=== PATIENT | male | born 1950 | race Caucasian/White ===

== ENCOUNTER 2017-03-16 10:28 | Inpatient (IN) | payer MEDICARE, OTHER ==
[2017-03-16] MEDS ORDERED: ALBUTEROL SO4 2.5/IPRATROPIUM 0.5 INH SOL 3 ML VIAL.NEB. NEB ONE (10:58)
[2017-03-16] MEDS ORDERED: methylPREDNISolone NA SUCC 125 MG/2 ML VIAL ONE (10:59)
[2017-03-16] MEDS ORDERED: FOLIC ACID INJECTION - 1 MG, THIAMINE HCL 100 MG, MULTIVIT INJECTION ADULT 10 ML in SOD... IVPB ONE (11:07)
[2017-03-16] MEDS: ALBUTEROL SO4 2.5/IPRATROPIUM 0.5 INH SOL 3 ML VIAL.NEB. NEB SCH ×3 (11:15→11:45)
[2017-03-16 11:19] LABS: BASOPHIL 0.5 % (0-2.0); EOSINOPHIL 0.3 % (0-4.5); MCH 32.8 pg (25.7-33.7); MCHC 32.7 g/dl (32.0-35.9); MEAN CELL VOLUME 100.4 fl (80-96); MEAN PLT VOLUME 8.5 fl (7.5-11.1); NEUTROPHILS 77.6 % (42.8-82.8); PLATELET COUNT 310 K/MM3 (134-434); RDW 15.3 % (11.9-15.9); WHITE BLOOD COUNT 13.9 K/mm3 (4.0-10.0)
[2017-03-16] MEDS ORDERED: methylPREDNISolone NA SUCC 125 MG/2 ML VIAL IVPB ONE (11:19)
--- NOTE | 2017-03-16 11:19 | PDOC ---
History of Present Illness - General Chief Complaint: Shortness of Breath Stated Complaint: SHORTNESS OF BREATH Time Seen by Provider: 03/16/17 10:39 History Source: Patient Exam Limitations: No Limitations - History of Present Illness Initial Comments: 03/16/17 11:26 66-year-old male with history of esophageal cancer current smoker, COPD and current alcoholic presents with difficulty breathing along with dry secretions that he cannot expectorate. Patient states was seen by his PCP earlier this week and was given expectorant but has had minimal success. Patient denies fever , chills, increased cough, chest pain, or nausea. Patient states has a PEG tube which he gives himself his feeding through but drinks alcohol daily through his mouth including whiskey and beer. Patient states last drink was this morning. Timing/Duration: reports: constant (3 days) Severity: reports: moderate Possible Cause: Yes: occasional episodes Associated Symptoms: reports: cough, shortness of breath Past History - Past Medical History Allergies/Adverse Reactions: Allergies Allergy/AdvReac Type Severity Reaction Status Date / Time shellfish derived Allergy REDDNESS Verified 03/16/17 10:32 AND SWELLING Radioactive opaque dye Allergy Severe Rash Uncoded 03/16/17 10:32 Home Medications: Ambulatory Orders Acyclovir [Zovirax -] 200 mg PO BID 03/16/17 Albuterol Sulfate [Proair Respiclick] 90 mcg IH TID 03/16/17 Aspirin [ASA -] 81 mg PO DAILY 03/16/17 Clonazepam [Klonopin] 1 mg PO BID 03/16/17 Furosemide [Lasix] 40 mg PO DAILY 03/16/17 Gabapentin [Neurontin] 600 mg PO DAILY 03/16/17 Guaifenesin [Robitussin -] 5 ml PO QID PRN 03/16/17 Levetiracetam [Keppra -] 750 mg PO BID 03/16/17 Magnesium Oxide [Mag-Ox -] 400 mg PO BID 03/16/17 Mirtazapine [Remeron -] 15 mg PO DAILY 03/16/17 Oxycodone HCl [Oxycontin] 30 mg PO BID PRN 03/16/17 Pantoprazole Sodium [Protonix -] 40 mg PO DAILY 03/16/17 Potassium Chloride [K-Dur -] 10 meq PO DAILY 03/16/17 Ropinirole HCl 1 mg PO DAILY 03/16/17 Tizanidine HCl 4 mg PO BID 03/16/17 Tramadol HCl 50 mg PO DAILY 03/16/17 Venlafaxine HCl [Effexor -] 150 mg PO DAILY 03/16/17 Anemia: No Asthma: Yes Cancer: Yes (LUNG, throat) Cardiac Disorders: Yes CVA: No COPD: Yes CHF: No Dementia: No Diabetes: No GI Disorders: Yes (bleed) Disorders: No HTN: No Hypercholesterolemia: No Liver Disease: Yes Suicide Attempt (Hx): No Seizures: Yes Thyroid Disease: No - Surgical History Abdominal Surgery: Yes Appendectomy: Yes Cardiac Surgery: Yes (3 STENTS) Cholecystectomy: No Lung Surgery: Yes (LT LOWER LOBECTOMY) Neurologic Surgery: No Orthopedic Surgery: No - Immunization History Td Vaccination: Yes TDAP Vaccination: Yes Immunization Up to Date: Yes - Psycho/Social/Smoking Cessation Hx Anxiety: No Suicidal Ideation: No Smoking Status: Yes Smoking History: Current every day smoker Years of Tobacco Use: 40 Have you smoked in the past 12 months: Yes Number of Cigarettes Smoked Daily: 10 If you are a former smoker, when did you quit?: 1 month ago Cigars Per Day: 0 Information on smoking cessation initiated: No 'Breaking Loose' booklet given: 04/12/16 Hx Alcohol Use: Yes Drug/Substance Use Hx: No Substance Use Type: Alcohol Hx Substance Use Treatment: No Patient Lives Alone: No Lives with/in: spouse/SO Respiratory Specific PMHX - Complaint Specific PMHX Bronchitis: Yes Pneumonia: Yes Review of Systems - Review of Systems Able to Perform ROS?: Yes Constitutional: No: Symptoms Reported HEENTM: No: Symptoms Reported Respiratory: Yes: Cough, Shortness of Breath, Wheezing Cardiac (ROS): No: Symptoms Reported ABD/GI: No: Symptoms Reported Musculoskeletal: No: Symptoms Reported Integumentary: No: Symptoms Reported Neurological: No: Headache, Weakness *Physical Exam - Vital Signs Last Vital Signs Temp Pulse Resp BP Pulse Ox 98.3 F 118 H 18 127/70 95 03/16/17 10:29 03/16/17 10:29 03/16/17 10:29 03/16/17 10:29 03/16/17 10:29 - Physical Exam General Appearance: Yes: Mild Distress, Alcohol on Breath, Thin HEENT: positive: EOMI, SHREE, TMs Normal, Pharynx Normal (dry). negative: Pale Conjunctivae Neck: positive: Supple Respiratory/Chest: positive: Accessory Muscle Use, Labored Respiration, Rapid RR (26 on arrival), Wheezing (end inspiratory) Cardiovascular: positive: Regular Rhythm, Tachycardia. negative: Murmur Gastrointestinal/Abdominal: positive: Soft, Other (gt intact). negative: Tenderness Extremity: positive: Normal Capillary Refill. negative: Pedal Edema Integumentary: positive: Normal Color, Dry, Warm Neurologic: positive: Motor Strength 5/5. negative: Normal Mood/Affect (anxious ) ED Treatment Course - LABORATORY CBC & Chemistry Diagram: 03/16/17 11:16 03/16/17 11:16 - RADIOLOGY Radiology Studies Ordered: Category Date Time Status CHEST PA & LAT [RAD] Stat Radiology 03/16/17 11:06 Ordered Medical Decision Making - Medical Decision Making 03/16/17 11:08 Patient with long-standing history of alcoholism and smoking presents shortness of breath and nonproductive cough despite starting Robitussin. Patient on exam had mild end inspiratory wheeze to the bronchial and scattered throughout his lung nettles. Patient also with dry mucous membranes. Patient ordered for 3 DuoNeb along with Solu-Medrol, banana bag labs, EKG and chest x-ray. 03/16/17 12:38 Laboratory Tests 03/16/17 11:16 WBC 13.9 H D Hgb 11.8 D Hct 36.2 Plt Count 310 Neutrophils % 77.6 Monocytes % 12.6 H D Chest x-ray shows some hyperinflation with no signs of infiltrate or failure. We 'll discuss case with patient's private care physician Dr. He for admission due to patient's poor diet, continual on-call abuse and abnormal labs. 03/16/17 12:39 Laboratory Tests 03/16/17 11:16 Sodium 134 L Potassium 4.5 Chloride 83 L D Anion Gap 11 BUN 32 H D Creatinine 1.6 H D Creat Clearance w eGFR 43.33 Random Glucose 66 L D Calcium 10.1 D Magnesium 3.0 H D Total Bilirubin 0.4 D AST 28 D ALT 15 D Alkaline Phosphatase 145 H Creatine Kinase 373 H Creatine Kinase Index 1.2 CK-MB (CK-2) 4.604 H Troponin I < 0.02 Currently receiving banana bag. Will perform a BGM secondary to glucose of 66.Patient currently satting at 95% on room air with mild accessory muscle usage patient currently receiving saline nebulizer. 03/16/17 13:15 Selected Entries 03/16/17 11:56 Pulse Rate [ 96 H Apical] Blood Pressure 150/73 [Left Arm] O2 Sat by Pulse 95 Oximetry (%) Patient still complaining he is uncomfortable and appears very restless. Patient maybe withdrawing from alcohol. Patient be ordered for 1 mg of Ativan along with an alcohol level. Dr. He here and states admitted to [facility] inpatient *DC/Admit/Observation/Transfer Diagnosis at time of Disposition: Alcohol dependence with uncomplicated withdrawal, COPD (chronic obstructive pulmonary disease), Laryngeal cancer Dyspnea Qualifiers: Dyspnea type: shortness of breath Qualified Code(s): R06.02 - Shortness of breath - Discharge Dispostion Admit: Yes
[2017-03-16 11:46] LABS: ANION GAP 11 (8-16); BILIRUBIN,TOTAL 0.4 mg/dL (0.2-1.0); CALCIUM 10.1 mg/dL (8.5-10.1); CO2 40 mmol/L (21-32); CREATININE 1.6 mg/dL (0.7-1.3); GLUCOSE,RANDOM 66 mg/dL (74-106); SGOT/AST 28 U/L (15-37); SGPT/ALT 15 U/L (12-78)
[2017-03-16 11:48] LABS: ALK PHOS 145 U/L (45-117); CPK 373 IU/L (39-308); TROPONIN I < 0.02 ng/ml (0.00-0.05)
[2017-03-16] MEDS ORDERED: SODIUM CHLORIDE FOR INHALATION 3 ML VIAL.NEB IH ONE (12:00)
[2017-03-16] MEDS ORDERED: LORazepam 2 MG/ML SDV VIAL ONE (13:02)
[2017-03-16] MEDS ORDERED: levETIRAcetam 500 MG TABLET (FP) PO ONE ×2 (13:39→13:44)
[2017-03-16] MEDS ORDERED: oxyCODONE HCL 5 MG TABLET PO PRN (15:15)
--- NOTE | 2017-03-16 15:32 | HP ---
Admitting History and Physical - Primary Care Physician PCP: Katiana He - Admission Chief Complaint: not feeling well History of Present Illness: 66-year-old male with history of throat cancer -- s/p recent RT--current smoker , COPD, lung ca-- s/p lobectomy , chronic pain issues , seizure disorder and current alcoholic presents with difficulty breathing along with dry secretions that he cannot expectorate. Patient states was seen by his oncologist earlier this week and was given expectorant but has had minimal success. Patient denies fever, chills, increased cough, chest pain, or nausea. Patient states has a PEG tube which he gives himself his feeding through but drinks alcohol daily through his mouth including whiskey and beer. Patient states last drink was this morning. pt found in copd exac/ alcohol withdrawal pt given fluids/ steroids/ nebulizer treatment in er. pt seen by me in er. well known to me discussed with er physician. Also discussed with who at bedside non compliant pt. History Source: Family Member, Medical Record Limitations to Obtaining History: Clinical Condition - Past Medical History [employer]NA[employer]ING: Yes: Seizure (alcohol induced) Cardiovascular: Yes: CAD, Other (STENTING) Pulmonary: Yes: Cancer (lung Ca), COPD Gastrointestinal: Yes: GERD, Other (Duodenal ulcers- cauterized july 2014) Psych: Yes: Addictions, Anxiety Musculoskeletal: Yes: Chronic low back pain - Past Surgical History Past Surgical History: Yes: Thoracotomy - Smoking History Smoking history: Current every day smoker Have you smoked in the past 12 months: Yes Aproximately how many cigarettes per day: 10 If you are a former smoker, when did you quit?: 1 month ago - Alcohol/Substance Use Hx Alcohol Use: Yes Number of Drinks Daily: 8 History of Substance Use: reports: None. denies: Prescription - Social History ADL: Family Assistance History of Recent Travel: No Home Medications - Allergies Allergies/Adverse Reactions: Allergies Allergy/AdvReac Type Severity Reaction Status Date / Time shellfish derived Allergy REDDNESS Verified 03/16/17 10:32 AND SWELLING Radioactive opaque dye Allergy Severe Rash Uncoded 03/16/17 10:32 - Home Medications Home Medications: Ambulatory Orders Acyclovir [Zovirax -] 200 mg PO BID 03/16/17 Albuterol Sulfate [Proair Respiclick] 90 mcg IH TID 03/16/17 Aspirin [ASA -] 81 mg PO DAILY 03/16/17 Clindamycin [Cleocin -] 300 mg PO DAILY 03/16/17 Clonazepam [Klonopin] 1 mg PO BID 03/16/17 Furosemide [Lasix] 40 mg PO DAILY 03/16/17 Gabapentin [Neurontin] 300 mg PO TID 03/16/17 Guaifenesin [Robitussin -] 5 ml PO QID 03/16/17 Levetiracetam [Keppra -] 750 mg PO BID 03/16/17 Magnesium Oxide [Mag-Ox -] 400 mg PO DAILY 03/16/17 Mirtazapine [Remeron -] 15 mg PO DAILY 03/16/17 Oxycodone HCl [Oxycontin] 30 mg PO BID 03/16/17 Pantoprazole Sodium [Protonix -] 40 mg PO DAILY 03/16/17 Potassium Chloride [K-Dur -] 10 meq PO DAILY 03/16/17 Ranitidine [Zantac -] 150 mg PO DAILY 03/16/17 Ropinirole HCl 1 mg PO DAILY 03/16/17 Tizanidine HCl 4 mg PO BID 03/16/17 Tramadol HCl 50 mg PO DAILY 03/16/17 Family Disease History - Family Disease History Family Disease History: Diabetes: Grandparent, [place]: Father, Other: Mother ( alcoholism) Review of Systems - Review of Systems Constitutional: reports: Loss of Appetite, Weakness Eyes: reports: No Symptoms HENT: reports: Throat Pain Neck: reports: No Symptoms Cardiovascular: reports: No Symptoms Respiratory: reports: SOB Gastrointestinal: reports: No Symptoms Neurological: reports: Weakness Psychiatric: reports: Anxiety Physical Examination Vital Signs: Vital Signs Temperature 98.8 F 03/16/17 14:20 Pulse Rate 102 H 03/16/17 14:20 Respiratory Rate 20 03/16/17 14:20 Blood Pressure 158/89 03/16/17 14:20 O2 Sat by Pulse Oximetry (%) 96 03/16/17 14:20 Constitutional: Yes: Anxious, Moderate Distress Eyes: Yes: Conjunctiva Clear Neck: Yes: Supple Cardiovascular: Yes: Regular Rate and Rhythm Respiratory: Yes: Diminished, Poor Air Entry, Rhonchi, Other (s/p g tube) Gastrointestinal: Yes: Soft Edema: No Neurological: Yes: Other (drowsy but arousable) Imaging - Results Chest X-ray: Report Reviewed Problem List - Problems (1) Alcohol dependence with uncomplicated withdrawal Code(s): F10.230 - ALCOHOL DEPENDENCE WITH WITHDRAWAL, UNCOMPLICATED (2) Dyspnea Code(s): R06.00 - DYSPNEA, UNSPECIFIED Qualifiers: Dyspnea type: shortness of breath Qualified Code(s): R06.02 - Shortness of breath; R06.00 - Dyspnea, unspecified; R06.01 - Orthopnea (3) Lung cancer Code(s): C34.90 - MALIGNANT NEOPLASM OF UNSP PART OF UNSP BRONCHUS OR LUNG (4) Restless leg Code(s): G25.81 - RESTLESS LEGS SYNDROME (5) Seizure Code(s): R56.9 - UNSPECIFIED CONVULSIONS (6) COPD with exacerbation Code(s): J44.1 - CHRONIC OBSTRUCTIVE PULMONARY DISEASE W (ACUTE) EXACERBATION (7) History of throat cancer Code(s): Z85.819 - PRSNL HX OF MALIG NEOPLM OF UNSP SITE LIP,ORAL CAV,& PHARYNX Assessment/Plan Overall condition poor due to multiple comorbities. non compliance . steroids nebulizer treatment detox with librium protocol banana bag. f/u lytes discussed with . time spend 40 min in examining/documenting and coordating care.
[2017-03-16 16:09] VITALS: BMI 16.9
[2017-03-16] MEDS ORDERED: PT OWN MED DRAWER 7, Y5N ONE (17:29)
[2017-03-16] MEDS: chlordiazePOXIDE HCL 25 MG CAPSULE PO SCH ×2 (17:35→23:12)
[2017-03-16] MEDS: D5-1/2NS+20 MEQ KCL - 1,000 ML IV SCH (18:35)
[2017-03-16] MEDS: ALBUTEROL SO4 0.083% IH SOL 2.5 MG/3 ML VIAL.NEB. NEB PRN (20:08)
[2017-03-16] MEDS: methylPREDNISolone NA SUCC 40 MG/1 ML VIAL IVPB SCH (23:09)
[2017-03-16] MEDS: GABAPENTIN 300 MG CAPSULE (FP) PO SCH (23:10)
[2017-03-16] MEDS: ACYCLOVIR 200 MG CAPSULE PO SCH (23:10)
[2017-03-16] MEDS: HEPARIN NA (PORCINE) 5,000 UNITS/ML 1ML VIAL SQ SCH (23:10)
[2017-03-16] MEDS: levETIRAcetam 250 MG TABLET (FP) PO SCH (23:10)
[2017-03-16] MEDS: oxyCODONE HCL 10 MG SUSTAINED ACTING TABLET PO SCH (23:13)
[2017-03-16] MEDS: clonazePAM 0.5 MG TABLET PO SCH (23:14)
[2017-03-16] MEDS: PATIENT'S OWN MEDICATION (NON-FORMULARY) (Tizanidine Hcl [Tizanidine Hcl] 4 MG) PO PRN (23:18)
[2017-03-17] MEDS: methylPREDNISolone NA SUCC 40 MG/1 ML VIAL IVPB SCH ×4 (02:01→21:00)
[2017-03-17] MEDS: D5-1/2NS+20 MEQ KCL - 1,000 ML IV SCH ×2 (04:00→22:19)
[2017-03-17] MEDS: GABAPENTIN 300 MG CAPSULE (FP) PO SCH ×3 (06:17→22:19)
[2017-03-17] MEDS: chlordiazePOXIDE HCL 25 MG CAPSULE PO SCH ×4 (06:17→22:18)
[2017-03-17] MEDS ORDERED: FOLIC ACID INJECTION - 1 MG, THIAMINE HCL 100 MG, MULTIVIT INJECTION ADULT 10 ML in SOD... IVPB SCH (08:00)
[2017-03-17 08:35] LABS: BASOPHIL 0.1 % (0-2.0); MCH 32.8 pg (25.7-33.7); MCHC 32.2 g/dl (32.0-35.9); MEAN CELL VOLUME 101.7 fl (80-96); MEAN PLT VOLUME 8.4 fl (7.5-11.1); NEUTROPHILS 93.6 % (42.8-82.8); PLATELET COUNT 256 K/MM3 (134-434); RDW 15.7 % (11.9-15.9); WHITE BLOOD COUNT 11.7 K/mm3 (4.0-10.0)
[2017-03-17 08:51] LABS: INR 1.02 (0.82-1.09); PROTHROMBIN TIME (PATIENT) 11.2 SEC (9.98-11.88)
[2017-03-17 09:08] LABS: ANION GAP 9 (8-16); CALCIUM 9.4 mg/dL (8.5-10.1); CO2 33 mmol/L (21-32); GLUCOSE,RANDOM 129 mg/dL (74-106); MAGNESIUM 2.4 mg/dL (1.8-2.4)
[2017-03-17 09:11] LABS: ALK PHOS 118 U/L (45-117); BILIRUBIN,TOTAL 0.4 mg/dL (0.2-1.0); SGOT/AST 23 U/L (15-37); SGPT/ALT 14 U/L (12-78); TOT PROT 6.4 g/dl (6.4-8.2)
[2017-03-17] MEDS ORDERED: CLINDAMYCIN HCL 150 MG CAPSULE (FP) PO SCH (10:00)
[2017-03-17] MEDS ORDERED: PT OWN MED DRAWER 7, Y5N ONE ×2 (10:15→22:10)
[2017-03-17] MEDS: PANTOPRAZOLE 40 MG TABLET (FP) PO SCH (10:23)
[2017-03-17] MEDS: clonazePAM 0.5 MG TABLET PO SCH ×2 (10:23→22:19)
[2017-03-17] MEDS: oxyCODONE HCL 10 MG SUSTAINED ACTING TABLET PO SCH ×2 (10:24→22:17)
[2017-03-17] MEDS: MAGNESIUM OXIDE 400 MG TABLET (FP) PO SCH (10:24)
[2017-03-17] MEDS: HEPARIN NA (PORCINE) 5,000 UNITS/ML 1ML VIAL SQ SCH ×2 (10:24→22:18)
[2017-03-17] MEDS: ASPIRIN 81 MG CHEWABLE TABLETS PO SCH (10:24)
[2017-03-17] MEDS: levETIRAcetam 250 MG TABLET (FP) PO SCH ×2 (10:24→22:18)
[2017-03-17] MEDS: ACYCLOVIR 200 MG CAPSULE PO SCH ×2 (10:25→22:18)
[2017-03-17] MEDS: rOPINIRole HCL 1 MG TABLET (FP) PO SCH (10:25)
--- NOTE | 2017-03-17 11:29 | PN ---
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 (short form) - Note 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: Pt looks much better wants to eat- reports takes puree diet at home without difficulty Vital Signs Temp 98.2 F 03/17/17 09:57 Pulse 90 03/17/17 09:57 Resp 18 03/17/17 09:57 BP 120/64 03/17/17 09:57 Pulse Ox 100 03/16/17 21:00 Intake & Output 03/16/17 03/16/17 03/17/17 11:59 23:59 11:59 Intake Total 500 1600 Output Total 500 500 Balance 0 1100 Weight 100 lb 115 lb 1.6 oz Intake: IV 500 1500 D5-1/2Ns+20 Meq KCl - 1, 500 1500 000 ml @ 125 mls/hr IV ASDIR JOE Rx#:[id number] IVPB 100 Output: Urine 500 500 Void 500 500 Other: Voiding Method Urinal Urinal Bowel Movement No Height 5 ft 9 in 5 ft 9 in Body Mass Index (BMI) 14.8 16.9 Weight Measurement Method Built in [facility] Active Medications Acyclovir (Zovirax -) 200 mg PO BID [facility] Last Admin: 03/17/17 10:25 Dose: 200 mg Albuterol Sulfate (Ventolin 0.083% Nebulizer Soln -) 1 amp NEB Q4H PRN PRN Reason: SHORT OF BREATH/WHEEZING Last Admin: 03/16/17 20:08 Dose: 1 amp Aspirin (Asa -) 81 mg PO DAILY [facility] Last Admin: 03/17/17 10:24 Dose: 81 mg Chlordiazepoxide HCl (Librium -) 50 mg PO [id number] [facility] Last Admin: 03/17/17 10:24 Dose: 50 mg Clonazepam (Klonopin -) 1 mg PO BID [facility] Last Admin: 03/17/17 10:23 Dose: 1 mg Gabapentin (Neurontin -) 300 mg PO TID [facility] Last Admin: 03/17/17 06:17 Dose: 300 mg Heparin Sodium (Porcine) (Heparin -) 5,000 unit SQ BID [facility] Last Admin: 03/17/17 10:24 Dose: 5,000 unit Folic Acid 1 mg/ Thiamine HCl 100 mg/ Multivitamins/Minerals 10 ml/ Sodium Chloride 1,000 mls @ 125 mls/hr IVPB DAILY@0800 [facility] Last Admin: 03/17/17 10:23 Dose: 125 mls/hr Potassium Chloride/Dextrose/Sod Cl (D5-1/2ns+20 Meq Kcl -) 1,000 mls @ 125 mls/ hr IV ASDIR [facility] Last Admin: 03/17/17 04:00 Dose: 125 mls/hr Levetiracetam (Keppra -) 750 mg PO BID [facility] Last Admin: 03/17/17 10:24 Dose: 750 mg Magnesium Oxide (Mag-Ox -) 400 mg PO DAILY [facility] Last Admin: 03/17/17 10:24 Dose: 400 mg Methylprednisolone Sodium Succinate (Solu-Medrol -) 60 mg IVPB Q6H-IV [facility] Last Admin: 03/17/17 10:23 Dose: 60 mg Non-Formulary Medication (Tizanidine Hcl [Tizanidine Hcl]) 4 mg PO Q8H PRN PRN Reason: MUSCLE SPASMS/PAIN Last Admin: 03/16/17 23:18 Dose: 4 mg Oxycodone HCl (Oxycontin -) 30 mg PO BID [facility] Last Admin: 03/17/17 10:24 Dose: 30 mg Oxycodone HCl (Roxicodone -) 5 mg PO Q6H PRN PRN Reason: PAIN Pantoprazole Sodium (Protonix -) 40 mg PO DAILY [facility] Last Admin: 03/17/17 10:23 Dose: 40 mg Ropinirole HCl (Requip -) 1 mg PO DAILY [facility] Last Admin: 03/17/17 10:25 Dose: 1 mg CBC, BMP 03/17/17 07:30 03/17/17 07:30 Physical Examination Constitutional: Yes: Awake/ better. Eyes: Yes: Conjunctiva Clear Neck: Yes: Supple Cardiovascular: Yes: Regular Rate and Rhythm Respiratory: Yes: Diminished, Bilateral rhonchi Gastrointestinal: Yes: Soft Edema: No Neurological: Yes: Other (awake/) Imaging - Results Chest X-ray: Report Reviewed Assessment/Plan better continue present care puree diet discussed with pt/ will follow Problem List - Problems (1) Alcohol dependence with uncomplicated withdrawal Code(s): F10.230 - ALCOHOL DEPENDENCE WITH WITHDRAWAL, UNCOMPLICATED (2) Dyspnea Code(s): R06.00 - DYSPNEA, UNSPECIFIED Qualifiers: Dyspnea type: shortness of breath Qualified Code(s): R06.02 - Shortness of breath; R06.00 - Dyspnea, unspecified; R06.01 - Orthopnea (3) Lung cancer Code(s): C34.90 - MALIGNANT NEOPLASM OF UNSP PART OF UNSP BRONCHUS OR LUNG (4) Restless leg Code(s): G25.81 - RESTLESS LEGS SYNDROME (5) Seizure Code(s): R56.9 - UNSPECIFIED CONVULSIONS (6) COPD with exacerbation Code(s): J44.1 - CHRONIC OBSTRUCTIVE PULMONARY DISEASE W (ACUTE) EXACERBATION (7) History of throat cancer Code(s): Z85.819 - PRSNL HX OF MALIG NEOPLM OF UNSP SITE LIP,ORAL CAV,& PHARYNX
[2017-03-18] MEDS: methylPREDNISolone NA SUCC 40 MG/1 ML VIAL IVPB SCH ×4 (02:12→22:09)
[2017-03-18] MEDS: chlordiazePOXIDE HCL 25 MG CAPSULE PO SCH ×4 (05:11→22:10)
[2017-03-18] MEDS: GABAPENTIN 300 MG CAPSULE (FP) PO SCH ×3 (06:12→22:08)
[2017-03-18] MEDS: D5-1/2NS+20 MEQ KCL - 1,000 ML IV SCH (06:14)
--- NOTE | 2017-03-18 08:29 | PN ---
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 (short form) - Note 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: pt seen/examined. comfortably sleeping. afebrile Vital Signs Temp 97.8 F 03/18/17 06:00 Pulse 67 03/18/17 06:00 Resp 20 03/18/17 06:00 BP 119/64 03/18/17 06:00 Pulse Ox 97 03/17/17 21:00 Intake & Output 03/17/17 03/17/17 03/18/17 11:59 23:59 11:59 Intake Total 1600 2830 2790 Output Total 500 500 900 Balance 1100 2330 1890 Intake: IV 1500 1250 1150 D5-1/2Ns+20 Meq KCl - 1, 2975 260 8455 000 ml @ 125 mls/hr IV ASDIR [facility] Rx#:[id number] banana bag 875 IVPB 100 100 100 Oral 500 550 Tube Feeding 500 440 Tube Irrigant 480 550 Output: Urine 500 500 900 Void 500 500 900 Other: Voiding Method Urinal Urinal # Unmeasured Voids Void 2 2 Bowel Movement No No Active Medications Acyclovir (Zovirax -) 200 mg PO BID [facility] Last Admin: 03/17/17 22:18 Dose: 200 mg Albuterol Sulfate (Ventolin 0.083% Nebulizer Soln -) 1 amp NEB Q4H PRN PRN Reason: SHORT OF BREATH/WHEEZING Last Admin: 03/16/17 20:08 Dose: 1 amp Aspirin (Asa -) 81 mg PO DAILY [facility] Last Admin: 03/17/17 10:24 Dose: 81 mg Chlordiazepoxide HCl (Librium -) 50 mg PO [id number] [facility] Last Admin: 03/18/17 05:11 Dose: 50 mg Clonazepam (Klonopin -) 1 mg PO BID [facility] Last Admin: 03/17/17 22:19 Dose: 1 mg Folic Acid (Folic Acid -) 1 mg PO DAILY [facility] Gabapentin (Neurontin -) 300 mg PO TID [facility] Last Admin: 03/18/17 06:12 Dose: 300 mg Heparin Sodium (Porcine) (Heparin -) 5,000 unit SQ BID [facility] Last Admin: 03/17/17 22:18 Dose: 5,000 unit Levetiracetam (Keppra -) 750 mg PO BID [facility] Last Admin: 03/17/17 22:18 Dose: 750 mg Magnesium Oxide (Mag-Ox -) 400 mg PO DAILY [facility] Last Admin: 03/17/17 10:24 Dose: 400 mg Methylprednisolone Sodium Succinate (Solu-Medrol -) 60 mg IVPB Q6H-IV [facility] Last Admin: 03/18/17 02:12 Dose: 60 mg Non-Formulary Medication (Tizanidine Hcl [Tizanidine Hcl]) 4 mg PO Q8H PRN PRN Reason: MUSCLE SPASMS/PAIN Last Admin: 03/16/17 23:18 Dose: 4 mg Oxycodone HCl (Oxycontin -) 30 mg PO BID [facility] Last Admin: 03/17/17 22:17 Dose: 30 mg Oxycodone HCl (Roxicodone -) 5 mg PO Q6H PRN PRN Reason: PAIN Last Admin: 03/17/17 15:34 Dose: 5 mg Pantoprazole Sodium (Protonix -) 40 mg PO DAILY [facility] Last Admin: 03/17/17 10:23 Dose: 40 mg Ropinirole HCl (Requip -) 1 mg PO DAILY [facility] Last Admin: 03/17/17 10:25 Dose: 1 mg Thiamine HCl (Vitamin B1 Injection -) 200 mg IM DAILY [facility] CBC, BMP 03/17/17 07:30 03/17/17 07:30 Physical Examination Constitutional: Yes:comfortable. Eyes: Yes: Conjunctiva Clear. Neck: Yes: Supple. Cardiovascular: Yes: Regular Rate and Rhythm Respiratory: Yes: Diminished, Bilateral rhonchi Gastrointestinal: Yes: Soft Edema: No Neurological: Yes: Other (awake) Imaging - Results Chest X-ray: Report Reviewed Assessment/Plan getting better tolerating feeding taking orally Taper steroids. d/c fluids got banana bag x2 add thiamine daily oob- chair will follow Problem List - Problems (1) Alcohol dependence with uncomplicated withdrawal Code(s): F10.230 - ALCOHOL DEPENDENCE WITH WITHDRAWAL, UNCOMPLICATED (2) Dyspnea Code(s): R06.00 - DYSPNEA, UNSPECIFIED Qualifiers: Dyspnea type: shortness of breath Qualified Code(s): R06.02 - Shortness of breath; R06.00 - Dyspnea, unspecified; R06.01 - Orthopnea (3) Lung cancer Code(s): C34.90 - MALIGNANT NEOPLASM OF UNSP PART OF UNSP BRONCHUS OR LUNG (4) Restless leg Code(s): G25.81 - RESTLESS LEGS SYNDROME (5) Seizure Code(s): R56.9 - UNSPECIFIED CONVULSIONS (6) COPD with exacerbation Code(s): J44.1 - CHRONIC OBSTRUCTIVE PULMONARY DISEASE W (ACUTE) EXACERBATION (7) History of throat cancer Code(s): Z85.819 - PRSNL HX OF MALIG NEOPLM OF UNSP SITE LIP,ORAL CAV,& PHARYNX
[2017-03-18] MEDS: PANTOPRAZOLE 40 MG TABLET (FP) PO SCH (11:24)
[2017-03-18] MEDS: FOLIC ACID 1 MG TABLET (FP) PO SCH (11:24)
[2017-03-18] MEDS: oxyCODONE HCL 10 MG SUSTAINED ACTING TABLET PO SCH ×2 (11:25→22:08)
[2017-03-18] MEDS: ASPIRIN 81 MG CHEWABLE TABLETS PO SCH (11:25)
[2017-03-18] MEDS: MAGNESIUM OXIDE 400 MG TABLET (FP) PO SCH (11:25)
[2017-03-18] MEDS: clonazePAM 0.5 MG TABLET PO SCH ×2 (11:27→22:08)
[2017-03-18] MEDS: THIAMINE HCL 200 MG/2 ML VIAL IM SCH (11:28)
[2017-03-18] MEDS: HEPARIN NA (PORCINE) 5,000 UNITS/ML 1ML VIAL SQ SCH ×2 (11:28→22:08)
[2017-03-18] MEDS ORDERED: PT OWN MED DRAWER 7, Y5N ONE ×2 (11:30→21:01)
[2017-03-18] MEDS: rOPINIRole HCL 1 MG TABLET (FP) PO SCH (11:31)
[2017-03-18] MEDS: ACYCLOVIR 200 MG CAPSULE PO SCH ×2 (11:32→22:08)
[2017-03-18] MEDS: levETIRAcetam 250 MG TABLET (FP) PO SCH ×2 (12:30→22:07)
--- NOTE | 2017-03-18 16:42 | EKG ---
Test Reason : Blood Pressure : / mmHG Vent. Rate : 093 BPM Atrial Rate : 093 BPM P-R Int : 134 ms QRS Dur : 074 ms QT Int : 370 ms P-R-T Axes : 079 029 064 degrees QTc Int : 460 ms NORMAL SINUS RHYTHM BASELINE ARTIFACT ABNORMAL ECG WHEN COMPARED WITH ECG OF 13-APR-2016 10:16, LIKELY NO SIGNIFICANT CHANGES Confirmed by JADA SPARKS MD ([id number]) on 03/18/2017 4:41:50 PM Referred By: Confirmed By:JADA SPARKS MD
[2017-03-18] MEDS: AZITHROMYCIN IVPB 500 MG/250 ML D5W PRE-DOCKED IVPB SCH (17:19)
[2017-03-19] MEDS: methylPREDNISolone NA SUCC 40 MG/1 ML VIAL IVPB SCH ×3 (03:00→17:29)
[2017-03-19] MEDS: chlordiazePOXIDE HCL 25 MG CAPSULE PO SCH ×6 (05:58→22:23)
[2017-03-19] MEDS: GABAPENTIN 300 MG CAPSULE (FP) PO SCH ×3 (05:58→22:24)
[2017-03-19] MEDS: ALBUTEROL SO4 0.083% IH SOL 2.5 MG/3 ML VIAL.NEB. NEB PRN ×3 (06:35→22:05)
--- NOTE | 2017-03-19 08:29 | PN ---
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 (short form) - Note 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: pt comfortable started on zithromax for moist cough yesterday. afebrile no new issues. overall better chronic ill appearance Vital Signs Temp 97.8 F 03/19/17 06:37 Pulse 73 03/19/17 06:37 Resp 20 03/19/17 06:37 BP 106/62 03/19/17 06:37 Pulse Ox 97 03/17/17 21:00 Intake & Output 03/18/17 03/18/17 03/19/17 11:59 23:59 11:59 Intake Total 2940 1698 1290 Output Total 1300 750 Balance 9429 356 1963 Weight 129 lb 1 oz Intake: IV 1150 678 D5-1/2Ns+20 Meq KCl - 1, 1150 678 000 ml @ 125 mls/hr IV ASDIR [facility] Rx#:[id number] IVPB 100 100 Oral 700 390 300 Tube Feeding 440 280 440 Tube Irrigant 550 250 550 Output: Urine 1300 750 Void 1300 750 Other: Voiding Method Urinal Urinal # Unmeasured Voids Void 2 1 Bowel Movement No Yes: small No # Bowel Movements 1 Weight [facility] Active Medications Acyclovir (Zovirax -) 200 mg PO BID [facility] Last Admin: 03/18/17 22:08 Dose: 200 mg Albuterol Sulfate (Ventolin 0.083% Nebulizer Soln -) 1 amp NEB Q4H PRN PRN Reason: SHORT OF BREATH/WHEEZING Last Admin: 03/19/17 06:35 Dose: 1 amp Aspirin (Asa -) 81 mg PO DAILY [facility] Last Admin: 03/18/17 11:25 Dose: 81 mg Azithromycin (Zithromax 500mg Ivpb (Pre-Docked)) 500 mg IVPB DAILY [facility] Last Admin: 03/18/17 17:19 Dose: 500 mg Chlordiazepoxide HCl (Librium -) 50 mg PO [id number] [facility] Last Admin: 03/19/17 05:58 Dose: 50 mg Clonazepam (Klonopin -) 1 mg PO BID [facility] Last Admin: 03/18/17 22:08 Dose: 1 mg Folic Acid (Folic Acid -) 1 mg PO DAILY [facility] Last Admin: 03/18/17 11:24 Dose: 1 mg Gabapentin (Neurontin -) 300 mg PO TID [facility] Last Admin: 03/19/17 05:58 Dose: 300 mg Heparin Sodium (Porcine) (Heparin -) 5,000 unit SQ BID [facility] Last Admin: 03/18/17 22:08 Dose: 5,000 unit Levetiracetam (Keppra -) 750 mg PO BID [facility] Last Admin: 03/18/17 22:07 Dose: 750 mg Magnesium Oxide (Mag-Ox -) 400 mg PO DAILY [facility] Last Admin: 03/18/17 11:25 Dose: 400 mg Methylprednisolone Sodium Succinate (Solu-Medrol -) 40 mg IVPB Q6H-IV [facility] Last Admin: 03/19/17 03:00 Dose: 40 mg Non-Formulary Medication (Tizanidine Hcl [Tizanidine Hcl]) 4 mg PO Q8H PRN PRN Reason: MUSCLE SPASMS/PAIN Last Admin: 03/16/17 23:18 Dose: 4 mg Oxycodone HCl (Oxycontin -) 30 mg PO BID [facility] Last Admin: 03/18/17 22:08 Dose: 30 mg Oxycodone HCl (Roxicodone -) 5 mg PO Q6H PRN PRN Reason: PAIN Last Admin: 03/17/17 15:34 Dose: 5 mg Pantoprazole Sodium (Protonix -) 40 mg PO DAILY [facility] Last Admin: 03/18/17 11:24 Dose: 40 mg Ropinirole HCl (Requip -) 1 mg PO DAILY [facility] Last Admin: 03/18/17 11:31 Dose: 1 mg Thiamine HCl (Vitamin B1 Injection -) 200 mg IM DAILY [facility] Last Admin: 03/18/17 11:28 Dose: 200 mg CBC, BMP 03/17/17 07:30 03/17/17 07:30 Physical Examination Constitutional: Yes:comfortable. Eyes: Yes: Conjunctiva Clear. Neck: Yes: Supple. Cardiovascular: Yes: Regular Rate and Rhythm Respiratory: Yes: Diminished, Bilateral rhonchi--scattered Gastrointestinal: Yes: Soft Edema: No Neurological: Yes: Other (awake) Imaging - Results Chest X-ray: Report Reviewed Assessment/Plan stable problems as listed taper steroids slowly abx daily oob - chair will follow Problem List - Problems (1) Alcohol dependence with uncomplicated withdrawal Code(s): F10.230 - ALCOHOL DEPENDENCE WITH WITHDRAWAL, UNCOMPLICATED (2) Dyspnea Code(s): R06.00 - DYSPNEA, UNSPECIFIED Qualifiers: Dyspnea type: shortness of breath Qualified Code(s): R06.02 - Shortness of breath; R06.00 - Dyspnea, unspecified; R06.01 - Orthopnea (3) Lung cancer Code(s): C34.90 - MALIGNANT NEOPLASM OF UNSP PART OF UNSP BRONCHUS OR LUNG (4) Restless leg Code(s): G25.81 - RESTLESS LEGS SYNDROME (5) Seizure Code(s): R56.9 - UNSPECIFIED CONVULSIONS (6) COPD with exacerbation Code(s): J44.1 - CHRONIC OBSTRUCTIVE PULMONARY DISEASE W (ACUTE) EXACERBATION (7) History of throat cancer Code(s): Z85.819 - PRSNL HX OF MALIG NEOPLM OF UNSP SITE LIP,ORAL CAV,& PHARYNX
[2017-03-19] MEDS ORDERED: PT OWN MED DRAWER 7, Y5N ONE ×2 (09:17→22:41)
[2017-03-19] MEDS: AZITHROMYCIN IVPB 500 MG/250 ML D5W PRE-DOCKED IVPB SCH (09:21)
[2017-03-19] MEDS: levETIRAcetam 250 MG TABLET (FP) PO SCH ×2 (09:21→22:23)
[2017-03-19] MEDS: PANTOPRAZOLE 40 MG TABLET (FP) PO SCH (09:22)
[2017-03-19] MEDS: oxyCODONE HCL 10 MG SUSTAINED ACTING TABLET PO SCH ×2 (09:23→22:24)
[2017-03-19] MEDS: MAGNESIUM OXIDE 400 MG TABLET (FP) PO SCH (09:25)
[2017-03-19] MEDS: FOLIC ACID 1 MG TABLET (FP) PO SCH (09:26)
[2017-03-19] MEDS: ASPIRIN 81 MG CHEWABLE TABLETS PO SCH (09:26)
[2017-03-19] MEDS: clonazePAM 0.5 MG TABLET PO SCH ×2 (09:26→22:23)
[2017-03-19] MEDS: HEPARIN NA (PORCINE) 5,000 UNITS/ML 1ML VIAL SQ SCH ×2 (09:28→22:23)
[2017-03-19] MEDS: THIAMINE HCL 200 MG/2 ML VIAL IM SCH (09:28)
[2017-03-19] MEDS: rOPINIRole HCL 1 MG TABLET (FP) PO SCH (09:30)
[2017-03-19] MEDS: ACYCLOVIR 200 MG CAPSULE PO SCH ×2 (09:31→23:55)
[2017-03-19] MEDS: PATIENT'S OWN MEDICATION (NON-FORMULARY) (Tizanidine Hcl [Tizanidine Hcl] 4 MG) PO PRN (22:43)
[2017-03-20] MEDS: methylPREDNISolone NA SUCC 40 MG/1 ML VIAL IVPB SCH ×4 (02:49→22:06)
[2017-03-20] MEDS: GABAPENTIN 300 MG CAPSULE (FP) PO SCH ×3 (05:51→22:47)
[2017-03-20] MEDS: chlordiazePOXIDE HCL 25 MG CAPSULE PO SCH ×2 (05:51→22:47)
[2017-03-20] MEDS: oxyCODONE HCL 10 MG SUSTAINED ACTING TABLET PO SCH ×2 (10:04→22:46)
[2017-03-20] MEDS: levETIRAcetam 250 MG TABLET (FP) PO SCH ×2 (10:04→22:47)
[2017-03-20] MEDS: FOLIC ACID 1 MG TABLET (FP) PO SCH (10:04)
[2017-03-20] MEDS: PANTOPRAZOLE 40 MG TABLET (FP) PO SCH (10:04)
[2017-03-20] MEDS: clonazePAM 0.5 MG TABLET PO SCH (10:07)
[2017-03-20] MEDS: ASPIRIN 81 MG CHEWABLE TABLETS PO SCH (10:07)
[2017-03-20] MEDS: HEPARIN NA (PORCINE) 5,000 UNITS/ML 1ML VIAL SQ SCH ×2 (10:07→21:59)
[2017-03-20] MEDS: MAGNESIUM OXIDE 400 MG TABLET (FP) PO SCH (10:07)
[2017-03-20] MEDS: THIAMINE HCL 200 MG/2 ML VIAL IM SCH (10:08)
[2017-03-20] MEDS: rOPINIRole HCL 1 MG TABLET (FP) PO SCH (10:31)
[2017-03-20] MEDS: ACYCLOVIR 200 MG CAPSULE PO SCH ×2 (10:34→22:45)
[2017-03-20] MEDS ORDERED: PT OWN MED DRAWER 7, Y5N ONE (10:34)
--- NOTE | 2017-03-20 10:46 | PN ---
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, Physician Chief Complaint: at bedside events noted pt pulled out his iv line and GT sleepy confused not making sense - Current Medication List Current Medications: Active Medications Acetaminophen (Tylenol -) 650 mg PO Q6H PRN PRN Reason: FEVER OR PAIN Acyclovir (Zovirax -) 200 mg PO BID [facility] Last Admin: 03/20/17 10:34 Dose: 200 mg Albuterol Sulfate (Ventolin 0.083% Nebulizer Soln -) 1 amp NEB Q4H PRN PRN Reason: SHORT OF BREATH/WHEEZING Last Admin: 03/19/17 22:05 Dose: 1 amp Aspirin (Asa -) 81 mg PO DAILY [facility] Last Admin: 03/20/17 10:07 Dose: 81 mg Azithromycin (Zithromax 500mg Ivpb (Pre-Docked)) 500 mg IVPB DAILY [facility] Last Admin: 03/19/17 09:21 Dose: 500 mg Clonazepam (Klonopin -) 1 mg PO BID [facility] Last Admin: 03/20/17 10:07 Dose: 1 mg Folic Acid (Folic Acid -) 1 mg PO DAILY [facility] Last Admin: 03/20/17 10:04 Dose: 1 mg Gabapentin (Neurontin -) 300 mg PO TID [facility] Last Admin: 03/20/17 05:51 Dose: 300 mg Heparin Sodium (Porcine) (Heparin -) 5,000 unit SQ BID [facility] Last Admin: 03/20/17 10:07 Dose: 5,000 unit Levetiracetam (Keppra -) 750 mg PO BID [facility] Last Admin: 03/20/17 10:04 Dose: 750 mg Magnesium Oxide (Mag-Ox -) 400 mg PO DAILY [facility] Last Admin: 03/20/17 10:07 Dose: 400 mg Non-Formulary Medication (Tizanidine Hcl [Tizanidine Hcl]) 4 mg PO Q8H PRN PRN Reason: MUSCLE SPASMS/PAIN Last Admin: 03/16/17 23:18 Dose: 4 mg Oxycodone HCl (Oxycontin -) 30 mg PO BID [facility] Last Admin: 03/20/17 10:04 Dose: 30 mg Pantoprazole Sodium (Protonix -) 40 mg PO DAILY [facility] Last Admin: 03/20/17 10:04 Dose: 40 mg Ropinirole HCl (Requip -) 1 mg PO DAILY [facility] Last Admin: 03/20/17 10:31 Dose: 1 mg Thiamine HCl (Vitamin B1 Injection -) 200 mg IM DAILY [facility] Last Admin: 03/20/17 10:08 Dose: 200 mg - Objective Vital Signs: Vital Signs Temperature 100 F H 03/20/17 07:29 Pulse Rate 84 03/20/17 07:29 Respiratory Rate 20 03/20/17 07:29 Blood Pressure 118/64 03/20/17 07:29 O2 Sat by Pulse Oximetry (%) 97 03/17/17 21:00 Constitutional: Yes: No Distress, Calm Cardiovascular: Yes: Regular Rate and Rhythm Respiratory: Yes: Diminished, Rhonchi Gastrointestinal: Yes: Normal Bowel Sounds, Soft, Other (GT site- clean). No: Distention, Tenderness Edema: Yes Edema: LLE: Trace, RLE: Trace Labs: CBC, BMP 03/17/17 07:30 03/17/17 07:30 INR, PTT INR 1.02 (0.82-1.09) 03/17/17 07:30 Problem List - Problems (1) Alcohol dependence with uncomplicated withdrawal Code(s): F10.230 - ALCOHOL DEPENDENCE WITH WITHDRAWAL, UNCOMPLICATED (2) COPD (chronic obstructive pulmonary disease) Code(s): J44.9 - CHRONIC OBSTRUCTIVE PULMONARY DISEASE, UNSPECIFIED (3) COPD with exacerbation Code(s): J44.1 - CHRONIC OBSTRUCTIVE PULMONARY DISEASE W (ACUTE) EXACERBATION (4) Confusion with non-focal neuro exam Code(s): R41.0 - DISORIENTATION, UNSPECIFIED (5) History of throat cancer Code(s): Z85.819 - PRSNL HX OF MALIG NEOPLM OF UNSP SITE LIP,ORAL CAV,& PHARYNX (6) Lung cancer, hilus Code(s): C34.00 - MALIGNANT NEOPLASM OF UNSPECIFIED MAIN BRONCHUS (7) Protein-calorie malnutrition, severe Code(s): E43 - UNSPECIFIED SEVERE PROTEIN-CALORIE MALNUTRITION Assessment/Plan PLAN Pt is tolerating puree diet but needs feeding tube /formula for his nutrtional needs GI eval- Dr ríos S/p radiation for throat CA- s/p peg placement for feeding DC Librium 50mg, not getting the protocol at the moment taper Librium to 25mg TID x 24 hours and then 10mg bid x 24 hours and stop taper Solumedrol may need to apply mitten restraints to pt if he's pulling out line and GT-- spoke with about this IV antibiotics Nebs as needed
[2017-03-20] MEDS: AZITHROMYCIN IVPB 500 MG/250 ML D5W PRE-DOCKED IVPB SCH (12:05)
[2017-03-20] MEDS ORDERED: clonazePAM 0.5 MG TABLET PO PRN (16:35)
--- NOTE | 2017-03-20 17:27 | CON.GI ---
Consult Consult Specialty:: gastroenterology Referred by:: Dr Loera - History of Present Illness Chief Complaint: displaced g-tube History of Present Illness: Patient has alcoholl withdrawal and was on librium. This morning he was confused and pulled out his IV and gastrostomy tube this afternoon. - Past Medical History [employer]: Yes: Seizure (alcohol induced) Cardio/Vascular: Yes: CAD, Other (STENTING) Pulmonary: Yes: Cancer (lung Ca), COPD Gastrointestinal: Yes: GERD, Other (Duodenal ulcers- cauterized july 2014) Psych: Yes: Addictions, Anxiety Musculoskeletal: Yes: Chronic low back pain - Past Surgical History Past Surgical History: Yes: Thoracotomy - Alcohol/Substance Use Hx Alcohol Use: Yes Number of Drinks Daily: 8 History of Substance Use: reports: None. denies: Prescription - Smoking History Smoking history: Current every day smoker Have you smoked in the past 12 months: Yes Aproximately how many cigarettes per day: 10 If you are a former smoker, when did you quit?: 1 month ago - Social History ADL: Family Assistance History of Recent Travel: No Home Medications - Allergies Allergies/Adverse Reactions: Allergies Allergy/AdvReac Type Severity Reaction Status Date / Time shellfish derived Allergy REDDNESS Verified 03/16/17 10:32 AND SWELLING Radioactive opaque dye Allergy Severe Rash Uncoded 03/16/17 10:32 - Home Medications Home Medications: Ambulatory Orders Acyclovir [Zovirax -] 200 mg PO BID 03/16/17 Albuterol Sulfate [Proair Respiclick] 90 mcg IH TID 03/16/17 Aspirin [ASA -] 81 mg PO DAILY 03/16/17 Clonazepam [Klonopin] 1 mg PO BID 03/16/17 Furosemide [Lasix] 40 mg PO DAILY 03/16/17 Gabapentin [Neurontin] 600 mg PO DAILY 03/16/17 Guaifenesin [Robitussin -] 5 ml PO QID PRN 03/16/17 Levetiracetam [Keppra -] 750 mg PO BID 03/16/17 Magnesium Oxide [Mag-Ox -] 400 mg PO BID 03/16/17 Mirtazapine [Remeron -] 15 mg PO DAILY 03/16/17 Oxycodone HCl [Oxycontin] 30 mg PO BID PRN 03/16/17 Pantoprazole Sodium [Protonix -] 40 mg PO DAILY 03/16/17 Potassium Chloride [K-Dur -] 10 meq PO DAILY 03/16/17 Ropinirole HCl 1 mg PO DAILY 03/16/17 Tizanidine HCl 4 mg PO BID 03/16/17 Tramadol HCl 50 mg PO DAILY 03/16/17 Venlafaxine HCl [Effexor -] 150 mg PO DAILY 03/16/17 Family Disease History - Family Disease History Family Disease History: Diabetes: Grandparent, CA: Father, Other: Mother ( alcoholism) Physical Exam-GI Vital Signs: Vital Signs Temperature 98.0 F 03/20/17 15:09 Pulse Rate 73 03/20/17 15:09 Respiratory Rate 18 03/20/17 15:09 Blood Pressure 100/62 03/20/17 15:09 O2 Sat by Pulse Oximetry (%) 97 03/17/17 21:00 Constitutional: Yes: Other (arousable) Eyes: Yes: Conjunctiva Clear, Occular Prosthesis Neck: Yes: Supple Cardiovascular: Yes: Regular Rate and Rhythm Respiratory: Yes: CTA Bilaterally ...Palpate: Yes: Soft, Other (gastrostomy site partially closed. The area was cleansed and a Fr 16 replacement tube was inserted.). No: Firm/Rigid, Guarding , Hepatomegaly, Mass, Pulsatile Mass, Splenomegaly, Tenderness, Tenderness, Epigastium Labs: CBC, BMP 03/17/17 07:30 03/17/17 07:30 INR, PTT INR 1.02 (0.82-1.09) 03/17/17 07:30 Problem List - Problems (1) Dislodged gastrostomy tube Assessment/Plan: R> gastrostomy tube ---for gastrograffin study, do not sart feedin until results are available Code(s): Z43.1 - ENCOUNTER FOR ATTENTION TO GASTROSTOMY
[2017-03-21] MEDS: chlordiazePOXIDE HCL 25 MG CAPSULE PO SCH ×2 (06:35→13:12)
[2017-03-21] MEDS: GABAPENTIN 300 MG CAPSULE (FP) PO SCH ×3 (06:35→22:05)
[2017-03-21 07:30] LABS: MCH 32.4 pg (25.7-33.7); MCHC 31.4 g/dl (32.0-35.9); MEAN CELL VOLUME 103.1 fl (80-96); MEAN PLT VOLUME 10.5 fl (7.5-11.1); PLATELET COUNT 175 K/MM3 (134-434); RDW 15.8 % (11.9-15.9); WHITE BLOOD COUNT 19.4 K/mm3 (4.0-10.0)
[2017-03-21 07:58] LABS: ALBUMIN 2.1 g/dl (3.4-5.0); ALK PHOS 71 U/L (45-117); ANION GAP 7 (8-16); BILIRUBIN,TOTAL 0.3 mg/dL (0.2-1.0); CO2 29 mmol/L (21-32); CREATININE 0.9 mg/dL (0.7-1.3); GLUCOSE,RANDOM 119 mg/dL (74-106); SGPT/ALT 11 U/L (12-78)
[2017-03-21 08:12] LABS: SGOT/AST 16 U/L (15-37)
[2017-03-21] MEDS: ASPIRIN 81 MG CHEWABLE TABLETS PO SCH (09:27)
[2017-03-21] MEDS: FOLIC ACID 1 MG TABLET (FP) PO SCH (09:27)
[2017-03-21] MEDS: oxyCODONE HCL 10 MG SUSTAINED ACTING TABLET PO SCH ×2 (09:28→22:05)
[2017-03-21] MEDS: HEPARIN NA (PORCINE) 5,000 UNITS/ML 1ML VIAL SQ SCH ×2 (09:28→22:05)
[2017-03-21] MEDS: MAGNESIUM OXIDE 400 MG TABLET (FP) PO SCH (09:29)
[2017-03-21] MEDS: levETIRAcetam 250 MG TABLET (FP) PO SCH ×2 (09:29→22:04)
[2017-03-21] MEDS: PANTOPRAZOLE 40 MG TABLET (FP) PO SCH (09:29)
[2017-03-21] MEDS: methylPREDNISolone NA SUCC 40 MG/1 ML VIAL IVPB SCH ×2 (09:30→22:05)
[2017-03-21] MEDS: THIAMINE HCL 200 MG/2 ML VIAL IM SCH (09:30)
[2017-03-21] MEDS: ACYCLOVIR 200 MG CAPSULE PO SCH ×2 (09:30→22:06)
[2017-03-21] MEDS: rOPINIRole HCL 1 MG TABLET (FP) PO SCH (09:30)
[2017-03-21] MEDS: AZITHROMYCIN IVPB 500 MG/250 ML D5W PRE-DOCKED IVPB SCH (09:31)
--- NOTE | 2017-03-21 10:44 | PN ---
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, Physician Chief Complaint: pt is more awake and responsive no distress coughing+ peg tube placed yesterday - Current Medication List Current Medications: Active Medications Acetaminophen (Tylenol -) 650 mg PO Q6H PRN PRN Reason: FEVER OR PAIN Acyclovir (Zovirax -) 200 mg PO BID [facility] Last Admin: 03/21/17 09:30 Dose: 200 mg Albuterol Sulfate (Ventolin 0.083% Nebulizer Soln -) 1 amp NEB Q4H PRN PRN Reason: SHORT OF BREATH/WHEEZING Last Admin: 03/19/17 22:05 Dose: 1 amp Aspirin (Asa -) 81 mg PO DAILY [facility] Last Admin: 03/21/17 09:27 Dose: 81 mg Azithromycin (Zithromax 500mg Ivpb (Pre-Docked)) 500 mg IVPB DAILY [facility] Last Admin: 03/21/17 09:31 Dose: 500 mg Chlordiazepoxide HCl (Librium -) 25 mg PO Q8H [facility] Stop: 03/21/17 14:01 Last Admin: 03/21/17 06:35 Dose: 25 mg Chlordiazepoxide HCl (Librium -) 10 mg PO Q8H [facility] Stop: 03/22/17 14:01 Clonazepam (Klonopin -) 1 mg PO Q12H PRN Folic Acid (Folic Acid -) 1 mg PO DAILY [facility] Last Admin: 03/21/17 09:27 Dose: 1 mg Gabapentin (Neurontin -) 300 mg PO TID [facility] Last Admin: 03/21/17 06:35 Dose: 300 mg Heparin Sodium (Porcine) (Heparin -) 5,000 unit SQ BID [facility] Last Admin: 03/21/17 09:28 Dose: 5,000 unit Levetiracetam (Keppra -) 750 mg PO BID [facility] Last Admin: 03/21/17 09:29 Dose: 750 mg Magnesium Oxide (Mag-Ox -) 400 mg PO DAILY [facility] Last Admin: 03/21/17 09:29 Dose: 400 mg Methylprednisolone Sodium Succinate (Solu-Medrol -) 40 mg IVPB BID [facility] Last Admin: 03/21/17 09:30 Dose: 40 mg Non-Formulary Medication (Tizanidine Hcl [Tizanidine Hcl]) 4 mg PO Q8H PRN PRN Reason: MUSCLE SPASMS/PAIN Last Admin: 03/16/17 23:18 Dose: 4 mg Oxycodone HCl (Oxycontin -) 30 mg PO BID [facility] Last Admin: 03/21/17 09:28 Dose: 30 mg Pantoprazole Sodium (Protonix -) 40 mg PO DAILY [facility] Last Admin: 03/21/17 09:29 Dose: 40 mg Ropinirole HCl (Requip -) 1 mg PO DAILY [facility] Last Admin: 03/21/17 09:30 Dose: 1 mg Thiamine HCl (Vitamin B1 Injection -) 200 mg IM DAILY [facility] Last Admin: 03/21/17 09:30 Dose: 200 mg - Objective Vital Signs: Vital Signs Temperature 97.4 F L 03/21/17 06:06 Pulse Rate 64 03/21/17 06:06 Respiratory Rate 20 03/21/17 06:06 Blood Pressure 94/57 03/21/17 06:06 O2 Sat by Pulse Oximetry (%) 99 03/20/17 22:31 Constitutional: Yes: No Distress Cardiovascular: Yes: Regular Rate and Rhythm Respiratory: Yes: Diminished, Rhonchi Gastrointestinal: Yes: Normal Bowel Sounds, Soft, Other (peg+). No: Distention , Tenderness Edema: No Labs: CBC, BMP 03/21/17 06:00 03/21/17 06:00 INR, PTT INR 1.02 (0.82-1.09) 03/17/17 07:30 Problem List - Problems (1) Alcohol dependence with uncomplicated withdrawal Code(s): F10.230 - ALCOHOL DEPENDENCE WITH WITHDRAWAL, UNCOMPLICATED (2) COPD (chronic obstructive pulmonary disease) Code(s): J44.9 - CHRONIC OBSTRUCTIVE PULMONARY DISEASE, UNSPECIFIED (3) COPD with exacerbation Code(s): J44.1 - CHRONIC OBSTRUCTIVE PULMONARY DISEASE W (ACUTE) EXACERBATION (4) Confusion with non-focal neuro exam Code(s): R41.0 - DISORIENTATION, UNSPECIFIED (5) History of throat cancer Code(s): Z85.819 - PRSNL HX OF MALIG NEOPLM OF UNSP SITE LIP,ORAL CAV,& PHARYNX (6) Lung cancer, hilus Code(s): C34.00 - MALIGNANT NEOPLASM OF UNSPECIFIED MAIN BRONCHUS (7) Protein-calorie malnutrition, severe Code(s): E43 - UNSPECIFIED SEVERE PROTEIN-CALORIE MALNUTRITION Assessment/Plan PLAN Pt is tolerating puree diet but needs feeding tube /formula for his nutritional needs GI eval- Dr ríos appreciated-- replaced peg tube S/p radiation for throat CA- s/p peg placement for feeding on Librium taper Klonopin as needed -- avoid sedation taper Solumedrol IV antibiotics Nebs as needed
[2017-03-21] MEDS: PATIENT'S OWN MEDICATION (NON-FORMULARY) (Tizanidine Hcl [Tizanidine Hcl] 4 MG) PO PRN (14:14)
--- NOTE | 2017-03-21 18:16 | PN ---
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 (short form) - Note 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: reviewed gastrograffin study, gastrostomy tube is in place, may use g-tub for feedings and medication Problem List - Problems (1) Dislodged gastrostomy tube Code(s): Z43.1 - ENCOUNTER FOR ATTENTION TO GASTROSTOMY
[2017-03-21] MEDS: ALBUTEROL SO4 0.083% IH SOL 2.5 MG/3 ML VIAL.NEB. NEB PRN (19:27)
[2017-03-21] MEDS ORDERED: PT OWN MED DRAWER 7, Y5N ONE (21:58)
[2017-03-21] MEDS: chlordiazePOXIDE 5 MG CAPSULE PO SCH (22:07)
[2017-03-22] MEDS: chlordiazePOXIDE 5 MG CAPSULE PO SCH ×2 (06:42→13:35)
[2017-03-22] MEDS: GABAPENTIN 300 MG CAPSULE (FP) PO SCH ×3 (06:42→22:23)
[2017-03-22] MEDS: ALBUTEROL SO4 0.083% IH SOL 2.5 MG/3 ML VIAL.NEB. NEB PRN (10:01)
[2017-03-22] MEDS: AZITHROMYCIN IVPB 500 MG/250 ML D5W PRE-DOCKED IVPB SCH ×2 (10:09→11:04)
--- NOTE | 2017-03-22 10:11 | PN ---
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 (short form) - Note 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: pt seen/ examined alert and awake today denies pain. dont know how he pulled out g tube Vital Signs Temp 99.9 F H 03/22/17 06:00 Pulse 84 03/22/17 09:28 Resp 20 03/22/17 09:28 BP 111/63 03/22/17 09:28 Pulse Ox 97 03/21/17 21:00 Intake & Output 03/21/17 03/21/17 03/22/17 11:59 23:59 11:59 Intake Total 1000 810 900 Output Total 600 300 Balance 1000 210 600 Weight 137 lb 8 oz Intake: IV 500 Saline Lock 500 IVPB 400 Oral 500 310 Tube Feeding 500 Tube Irrigant 100 400 Output: Urine 600 300 Void 600 300 Other: Voiding Method Urinal Urinal # Unmeasured Voids Void 1 1 Bowel Movement Yes Yes Yes # Bowel Movements 1 Weight Measurement Method Built in [facility] Active Medications Acetaminophen (Tylenol -) 650 mg PO Q6H PRN PRN Reason: FEVER OR PAIN Acyclovir (Zovirax -) 200 mg PO BID [facility] Last Admin: 03/21/17 22:06 Dose: 200 mg Albuterol Sulfate (Ventolin 0.083% Nebulizer Soln -) 1 amp NEB Q4H PRN PRN Reason: SHORT OF BREATH/WHEEZING Last Admin: 03/22/17 10:01 Dose: 1 amp Aspirin (Asa -) 81 mg PO DAILY [facility] Last Admin: 03/21/17 09:27 Dose: 81 mg Azithromycin (Zithromax 500mg Ivpb (Pre-Docked)) 500 mg IVPB DAILY [facility] Last Admin: 03/21/17 09:31 Dose: 500 mg Chlordiazepoxide HCl (Librium -) 10 mg PO Q8H [facility] Stop: 03/22/17 14:01 Last Admin: 03/22/17 06:42 Dose: 10 mg Clonazepam (Klonopin -) 1 mg PO Q12H PRN Folic Acid (Folic Acid -) 1 mg PO DAILY [facility] Last Admin: 03/21/17 09:27 Dose: 1 mg Gabapentin (Neurontin -) 300 mg PO TID [facility] Last Admin: 03/22/17 06:42 Dose: 300 mg Heparin Sodium (Porcine) (Heparin -) 5,000 unit SQ BID [facility] Last Admin: 03/21/17 22:05 Dose: 5,000 unit Levetiracetam (Keppra -) 750 mg PO BID [facility] Last Admin: 03/21/17 22:04 Dose: 750 mg Magnesium Oxide (Mag-Ox -) 400 mg PO DAILY [facility] Last Admin: 03/21/17 09:29 Dose: 400 mg Non-Formulary Medication (Tizanidine Hcl [Tizanidine Hcl]) 4 mg PO Q8H PRN PRN Reason: MUSCLE SPASMS/PAIN Last Admin: 03/21/17 14:14 Dose: 4 mg Oxycodone HCl (Oxycontin -) 30 mg PO BID [facility] Last Admin: 03/21/17 22:05 Dose: 30 mg Pantoprazole Sodium (Protonix -) 40 mg PO DAILY [facility] Last Admin: 03/21/17 09:29 Dose: 40 mg Prednisone (Deltasone -) 40 mg PO DAILY [facility] Ropinirole HCl (Requip -) 1 mg PO DAILY [facility] Last Admin: 03/21/17 09:30 Dose: 1 mg Thiamine HCl (Vitamin B1 Injection -) 200 mg IM DAILY [facility] Last Admin: 03/21/17 09:30 Dose: 200 mg CBC, BMP 03/21/17 06:00 03/21/17 06:00 Physical Examination Constitutional: Yes:comfortable/ no distress. chronic ill appearance. Eyes: Yes: Conjunctiva Clear. Neck: Yes: Supple. Cardiovascular: Yes: Regular Rate and Rhythm Respiratory: Yes: Diminished,scattered rhonchi Gastrointestinal: Yes: Soft-- g tube in place Edema: No Neurological: Yes: Other (awake) Assessment/Plan stable problems as listed taper steroids slowly--on prednisone abx-- d/c after today dose. cough better daily oob - chair physical therapy oob - chair d/c planning may need str. Problem List - Problems (1) Alcohol dependence with uncomplicated withdrawal Code(s): F10.230 - ALCOHOL DEPENDENCE WITH WITHDRAWAL, UNCOMPLICATED (2) Dyspnea Code(s): R06.00 - DYSPNEA, UNSPECIFIED Qualifiers: Dyspnea type: shortness of breath Qualified Code(s): R06.02 - Shortness of breath; R06.00 - Dyspnea, unspecified; R06.01 - Orthopnea (3) Lung cancer Code(s): C34.90 - MALIGNANT NEOPLASM OF UNSP PART OF UNSP BRONCHUS OR LUNG (4) Restless leg Code(s): G25.81 - RESTLESS LEGS SYNDROME (5) Seizure Code(s): R56.9 - UNSPECIFIED CONVULSIONS (6) COPD with exacerbation Code(s): J44.1 - CHRONIC OBSTRUCTIVE PULMONARY DISEASE W (ACUTE) EXACERBATION (7) History of throat cancer Code(s): Z85.819 - PRSNL HX OF MALIG NEOPLM OF UNSP SITE LIP,ORAL CAV,& PHARYNX
[2017-03-22] MEDS: oxyCODONE HCL 10 MG SUSTAINED ACTING TABLET PO SCH ×3 (10:12→22:20)
[2017-03-22] MEDS: MAGNESIUM OXIDE 400 MG TABLET (FP) PO SCH (10:14)
[2017-03-22] MEDS: levETIRAcetam 250 MG TABLET (FP) PO SCH ×2 (10:14→23:00)
[2017-03-22] MEDS: FOLIC ACID 1 MG TABLET (FP) PO SCH (10:14)
[2017-03-22] MEDS: PANTOPRAZOLE 40 MG TABLET (FP) PO SCH (10:14)
[2017-03-22] MEDS: THIAMINE HCL 200 MG/2 ML VIAL IM SCH (10:15)
[2017-03-22] MEDS: rOPINIRole HCL 1 MG TABLET (FP) PO SCH (10:16)
[2017-03-22] MEDS: ACYCLOVIR 200 MG CAPSULE PO SCH ×2 (10:16→22:36)
[2017-03-22] MEDS: predniSONE 20 MG TABLET (UD) PO SCH (10:17)
[2017-03-22] MEDS: ASPIRIN 81 MG CHEWABLE TABLETS PO SCH (10:17)
[2017-03-22] MEDS: HEPARIN NA (PORCINE) 5,000 UNITS/ML 1ML VIAL SQ SCH ×2 (10:17→22:28)
[2017-03-22] MEDS: ACETAMINOPHEN 325 MG TABLET (FP) PO PRN (13:40)
[2017-03-22 16:25] LABS: MCH 33.4 pg (25.7-33.7); MCHC 32.8 g/dl (32.0-35.9); MEAN PLT VOLUME 10.8 fl (7.5-11.1); PLATELET COUNT 155 K/MM3 (134-434); RDW 15.6 % (11.9-15.9); WHITE BLOOD COUNT 15.4 K/mm3 (4.0-10.0)
[2017-03-22] MEDS: LEVOFLOXACIN 500 MG IVPB 100 ML IVPB SCH (16:49)
[2017-03-22 16:58] LABS: ALK PHOS 69 U/L (45-117); ANION GAP 5 (8-16); BILIRUBIN,TOTAL 0.2 mg/dL (0.2-1.0); CALCIUM 8.5 mg/dL (8.5-10.1); CO2 30 mmol/L (21-32); CREATININE 0.9 mg/dL (0.7-1.3); GLUCOSE,RANDOM 148 mg/dL (74-106); SGOT/AST 20 U/L (15-37); SGPT/ALT 13 U/L (12-78); TOT PROT 5.1 g/dl (6.4-8.2)
[2017-03-22 20:33] LABS: URINE APPEARANCE CLEAR; URINE BILIRUBIN NEGATIVE (NEGATIVE); URINE BLOOD NEGATIVE (NEGATIVE); URINE COLOR LT. YELLOW; URINE GLUCOSE (UA) NEGATIVE (NEGATIVE); URINE KETONE NEGATIVE (NEGATIVE); URINE LEUK ESTERASE NEGATIVE (NEGATIVE); URINE NITRITE NEGATIVE (NEGATIVE); URINE PROTEIN NEGATIVE (NEGATIVE); URINE UROBILINOGEN 0.2 mg/dL (0.2-1.0)
[2017-03-22] MEDS ORDERED: PT OWN MED DRAWER 7, Y5N ONE ×2 (22:03→22:25)
[2017-03-22] MEDS: levETIRAcetam 500 MG/5 ML ORAL SOLUTION (UNIT-DOSE CUPS) PO SCH (22:37)
[2017-03-23] MEDS: GABAPENTIN 300 MG CAPSULE (FP) PO SCH ×3 (06:20→22:58)
[2017-03-23] MEDS ORDERED: PT OWN MED DRAWER 7, Y5N ONE ×2 (09:26→21:06)
--- NOTE | 2017-03-23 09:57 | PN ---
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, Physician Chief Complaint: pt febrile coughing+ unsure if he is aspirating- asking for yogurt and coffee - Current Medication List Current Medications: Active Medications Acetaminophen (Tylenol -) 650 mg PO Q6H PRN PRN Reason: FEVER OR PAIN Last Admin: 03/22/17 13:40 Dose: 650 mg Acyclovir (Zovirax -) 200 mg PO BID [facility] Last Admin: 03/22/17 22:36 Dose: 200 mg Albuterol Sulfate (Ventolin 0.083% Nebulizer Soln -) 1 amp NEB Q4H PRN PRN Reason: SHORT OF BREATH/WHEEZING Last Admin: 03/22/17 10:01 Dose: 1 amp Aspirin (Asa -) 81 mg PO DAILY [facility] Last Admin: 03/22/17 10:17 Dose: 81 mg Clonazepam (Klonopin -) 1 mg PO Q12H PRN Folic Acid (Folic Acid -) 1 mg PO DAILY [facility] Last Admin: 03/22/17 10:14 Dose: 1 mg Gabapentin (Neurontin -) 300 mg PO TID [facility] Last Admin: 03/23/17 06:20 Dose: 300 mg Heparin Sodium (Porcine) (Heparin -) 5,000 unit SQ BID [facility] Last Admin: 03/22/17 22:28 Dose: 5,000 unit Levofloxacin (Levaquin 500 Mg Premixed Ivpb -) 100 mls @ 100 mls/hr IVPB DAILY [facility] Last Admin: 03/22/17 16:49 Dose: 100 mls/hr Levetiracetam (Keppra Oral Solution -) 750 mg PO BID [facility] Last Admin: 03/22/17 22:37 Dose: 750 mg Magnesium Oxide (Mag-Ox -) 400 mg PO DAILY [facility] Last Admin: 03/22/17 10:14 Dose: 400 mg Non-Formulary Medication (Tizanidine Hcl [Tizanidine Hcl]) 4 mg PO Q8H PRN PRN Reason: MUSCLE SPASMS/PAIN Last Admin: 03/21/17 14:14 Dose: 4 mg Oxycodone HCl (Oxycontin -) 30 mg PO BID [facility] Last Admin: 03/22/17 22:20 Dose: 30 mg Pantoprazole Sodium (Protonix -) 40 mg PO DAILY [facility] Last Admin: 03/22/17 10:14 Dose: 40 mg Prednisone (Deltasone -) 40 mg PO DAILY [facility] Last Admin: 03/22/17 10:17 Dose: 40 mg Ropinirole HCl (Requip -) 1 mg PO DAILY [facility] Last Admin: 03/22/17 10:16 Dose: 1 mg Thiamine HCl (Vitamin B1 Injection -) 200 mg IM DAILY [facility] Last Admin: 03/22/17 10:15 Dose: 200 mg - Objective Vital Signs: Vital Signs Temperature 97.5 F L 03/23/17 06:00 Pulse Rate 83 03/23/17 06:00 Respiratory Rate 18 03/23/17 06:00 Blood Pressure 113/63 03/23/17 06:00 O2 Sat by Pulse Oximetry (%) 97 03/21/17 21:00 Constitutional: Yes: No Distress Cardiovascular: Yes: Regular Rate and Rhythm Respiratory: Yes: Diminished, Rhonchi Gastrointestinal: Yes: Normal Bowel Sounds, Soft, Other (peg+). No: Tenderness Edema: No Labs: CBC, BMP 03/22/17 14:50 03/22/17 14:50 INR, PTT INR 1.02 (0.82-1.09) 03/17/17 07:30 Problem List - Problems (1) Alcohol dependence with uncomplicated withdrawal Code(s): F10.230 - ALCOHOL DEPENDENCE WITH WITHDRAWAL, UNCOMPLICATED (2) COPD (chronic obstructive pulmonary disease) Code(s): J44.9 - CHRONIC OBSTRUCTIVE PULMONARY DISEASE, UNSPECIFIED (3) COPD with exacerbation Code(s): J44.1 - CHRONIC OBSTRUCTIVE PULMONARY DISEASE W (ACUTE) EXACERBATION (4) Confusion with non-focal neuro exam Code(s): R41.0 - DISORIENTATION, UNSPECIFIED (5) History of throat cancer Code(s): Z85.819 - PRSNL HX OF MALIG NEOPLM OF UNSP SITE LIP,ORAL CAV,& PHARYNX (6) Lung cancer, hilus Code(s): C34.00 - MALIGNANT NEOPLASM OF UNSPECIFIED MAIN BRONCHUS (7) Protein-calorie malnutrition, severe Code(s): E43 - UNSPECIFIED SEVERE PROTEIN-CALORIE MALNUTRITION Assessment/Plan PLAN Pt is febrile, unsure if he is aspirating- modify oral food-- puree with thickened liquids dc Prednisone Add Flagyl Cultures pending CXR-- extensive atelectasis-- will need chest PT and incentive spirometry IV antibiotics Nebs as needed
[2017-03-23] MEDS: ASPIRIN 81 MG CHEWABLE TABLETS PO SCH (10:15)
[2017-03-23] MEDS: predniSONE 20 MG TABLET (UD) PO SCH (10:15)
[2017-03-23] MEDS: HEPARIN NA (PORCINE) 5,000 UNITS/ML 1ML VIAL SQ SCH ×2 (10:16→22:59)
[2017-03-23] MEDS: FOLIC ACID 1 MG TABLET (FP) PO SCH (10:16)
[2017-03-23] MEDS: ACETAMINOPHEN 325 MG TABLET (FP) PO PRN (10:17)
[2017-03-23] MEDS: LEVOFLOXACIN 500 MG IVPB 100 ML IVPB SCH (10:18)
[2017-03-23] MEDS: MAGNESIUM OXIDE 400 MG TABLET (FP) PO SCH (10:18)
[2017-03-23] MEDS: oxyCODONE HCL 10 MG SUSTAINED ACTING TABLET PO SCH ×2 (10:19→22:57)
[2017-03-23] MEDS: PANTOPRAZOLE 40 MG TABLET (FP) PO SCH (10:20)
[2017-03-23] MEDS: levETIRAcetam 500 MG/5 ML ORAL SOLUTION (UNIT-DOSE CUPS) PO SCH ×2 (10:21→23:15)
[2017-03-23] MEDS: rOPINIRole HCL 1 MG TABLET (FP) PO SCH (10:21)
[2017-03-23] MEDS: ACYCLOVIR 200 MG CAPSULE PO SCH ×2 (10:22→22:58)
[2017-03-23] MEDS: THIAMINE HCL 200 MG/2 ML VIAL IM SCH (10:24)
[2017-03-23] MEDS: METRONIDAZOLE 500 MG PREMIXED 100 ML IVPB SCH ×2 (11:45→19:12)
[2017-03-23] MEDS ORDERED: SODIUM CHLORIDE 1,000 ML IV SCH (14:30)
[2017-03-23] MEDS: SODIUM CHLORIDE 1,000 ML IV SCH (16:20)
--- NOTE | 2017-03-23 19:50 | HOSP ---
Physical Examination Vital Signs: Vital Signs Temperature 99.8 F H 03/23/17 17:27 Pulse Rate 75 03/23/17 17:27 Respiratory Rate 20 03/23/17 17:27 Blood Pressure 98/61 03/23/17 17:27 O2 Sat by Pulse Oximetry (%) 93 L 03/23/17 09:00 Labs: CBC, BMP 03/22/17 14:50 03/22/17 14:50 Hospitalist Encounter Assessment: Pt attempted to get out of bed and to have a bowel movement. States he tried using the nurse call button but upon asking him to show me the button on the remote he was unable to locate it. He states he got off the bed and attempted to go to the bathroom in the "white bucket" and pointed to the trash can. Pt states he slid off the side of the bed getting up and did not hit his head. He landed on his buttocks. He denied any CP, palpitations, SOB, abd pain, light- headedness, or dizziness before the fall. As he was going down IV line was pulled out. He also defecated on himself as he was sliding down. He denies any headache, light-headedness, dizziness, body aches s/p fall. PE: Head: NC/AT, no pain to palpation on head or C-spine Eyes: PERRLA Mouth: No blood, no tongue bites, tongue midline C/V: S1S2+, RRR, no murmurs Lungs: CTA b/l anteriorly Abd: normoactive BS, NT Ext: B/L LE with no edema MSK: No pain to palpation in arms, shoulders, legs, knees A/P: -Fall protocol #1 initiated as pt is on anti-coagulation (heparin) -head CT ordered -fall precautions -emphasized using nurse call button and showed location on controller -monitor pt for mental status changes Visit type - Emergency Visit Emergency Visit: Yes ED Registration Date: 03/16/17 Care time: The patient presented to the Emergency Department on the above date and was hospitalized for further evaluation of their emergent condition. - New Patient This patient is new to me today: Yes Date on this admission: 03/23/17 - Critical Care Critical Care patient: No
[2017-03-24] MEDS: ACETAMINOPHEN 325 MG TABLET (FP) PO PRN ×2 (02:41→17:37)
[2017-03-24] MEDS: METRONIDAZOLE 500 MG PREMIXED 100 ML IVPB SCH ×3 (02:41→17:38)
[2017-03-24] MEDS: GABAPENTIN 300 MG CAPSULE (FP) PO SCH ×3 (06:52→21:53)
[2017-03-24] MEDS: LEVOFLOXACIN 500 MG IVPB 100 ML IVPB SCH (09:00)
--- NOTE | 2017-03-24 09:32 | PN ---
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, Physician Chief Complaint: s/p fall yesterday he is awake and alert today no coughing per nurse - Current Medication List Current Medications: Active Medications Acetaminophen (Tylenol -) 650 mg PO Q6H PRN PRN Reason: FEVER OR PAIN Last Admin: 03/24/17 02:41 Dose: 650 mg Acyclovir (Zovirax -) 200 mg PO BID [facility] Last Admin: 03/23/17 22:58 Dose: 200 mg Albuterol Sulfate (Ventolin 0.083% Nebulizer Soln -) 1 amp NEB Q4H PRN PRN Reason: SHORT OF BREATH/WHEEZING Last Admin: 03/22/17 10:01 Dose: 1 amp Aspirin (Asa -) 81 mg PO DAILY [facility] Last Admin: 03/23/17 10:15 Dose: 81 mg Clonazepam (Klonopin -) 1 mg PO Q12H PRN Folic Acid (Folic Acid -) 1 mg PO DAILY [facility] Last Admin: 03/23/17 10:16 Dose: 1 mg Gabapentin (Neurontin -) 300 mg PO TID [facility] Last Admin: 03/24/17 06:52 Dose: 300 mg Heparin Sodium (Porcine) (Heparin -) 5,000 unit SQ BID [facility] Last Admin: 03/23/17 22:59 Dose: 5,000 unit Levofloxacin (Levaquin 500 Mg Premixed Ivpb -) 100 mls @ 100 mls/hr IVPB DAILY [facility] Last Admin: 03/23/17 10:18 Dose: 100 mls/hr Metronidazole (Flagyl 500mg Premixed Ivpb -) 100 mls @ 100 mls/hr IVPB Q8H-IV [facility] Last Admin: 03/24/17 02:41 Dose: 100 mls/hr Sodium Chloride (Normal Saline -) 1,000 mls @ 80 mls/hr IV ASDIR [facility] Last Admin: 03/23/17 16:20 Dose: 80 mls/hr Levetiracetam (Keppra Oral Solution -) 750 mg PO BID [facility] Last Admin: 03/23/17 23:15 Dose: 750 mg Magnesium Oxide (Mag-Ox -) 400 mg PO DAILY [facility] Last Admin: 03/23/17 10:18 Dose: 400 mg Non-Formulary Medication (Tizanidine Hcl [Tizanidine Hcl]) 4 mg PO Q8H PRN PRN Reason: MUSCLE SPASMS/PAIN Last Admin: 03/21/17 14:14 Dose: 4 mg Oxycodone HCl (Oxycontin -) 30 mg PO BID [facility] Last Admin: 03/23/17 22:57 Dose: 30 mg Pantoprazole Sodium (Protonix -) 40 mg PO DAILY [facility] Last Admin: 03/23/17 10:20 Dose: 40 mg Ropinirole HCl (Requip -) 1 mg PO DAILY [facility] Last Admin: 03/23/17 10:21 Dose: 1 mg Thiamine HCl (Vitamin B1 Injection -) 200 mg IM DAILY [facility] Last Admin: 03/23/17 10:24 Dose: 200 mg - Objective Vital Signs: Vital Signs Temperature 97.2 F L 03/24/17 07:00 Pulse Rate 65 03/24/17 07:00 Respiratory Rate 18 03/24/17 07:00 Blood Pressure 102/60 03/24/17 07:00 O2 Sat by Pulse Oximetry (%) 98 03/23/17 21:00 Constitutional: Yes: No Distress Cardiovascular: Yes: Regular Rate and Rhythm Respiratory: Yes: Rhonchi Gastrointestinal: Yes: Normal Bowel Sounds, Soft. No: Tenderness Edema: No Labs: CBC, BMP 03/22/17 14:50 03/22/17 14:50 INR, PTT INR 1.02 (0.82-1.09) 03/17/17 07:30 Problem List - Problems (1) Alcohol dependence with uncomplicated withdrawal Code(s): F10.230 - ALCOHOL DEPENDENCE WITH WITHDRAWAL, UNCOMPLICATED (2) COPD (chronic obstructive pulmonary disease) Code(s): J44.9 - CHRONIC OBSTRUCTIVE PULMONARY DISEASE, UNSPECIFIED (3) COPD with exacerbation Code(s): J44.1 - CHRONIC OBSTRUCTIVE PULMONARY DISEASE W (ACUTE) EXACERBATION (4) Confusion with non-focal neuro exam Code(s): R41.0 - DISORIENTATION, UNSPECIFIED (5) History of throat cancer Code(s): Z85.819 - PRSNL HX OF MALIG NEOPLM OF UNSP SITE LIP,ORAL CAV,& PHARYNX (6) Lung cancer, hilus Code(s): C34.00 - MALIGNANT NEOPLASM OF UNSPECIFIED MAIN BRONCHUS (7) Protein-calorie malnutrition, severe Code(s): E43 - UNSPECIFIED SEVERE PROTEIN-CALORIE MALNUTRITION Assessment/Plan PLAN Pt is febrile, unsure if he is aspirating- modify oral food-- puree with thickened liquids culture negative swallow eval in AM iv antibiotics dc Prednisone Add Flagyl CXR-- extensive atelectasis-- will need chest PT and incentive spirometry Nebs as needed
[2017-03-24] MEDS: PANTOPRAZOLE 40 MG TABLET (FP) PO SCH (09:48)
[2017-03-24] MEDS: oxyCODONE HCL 10 MG SUSTAINED ACTING TABLET PO SCH ×2 (09:48→21:52)
[2017-03-24] MEDS: MAGNESIUM OXIDE 400 MG TABLET (FP) PO SCH (09:48)
[2017-03-24] MEDS: HEPARIN NA (PORCINE) 5,000 UNITS/ML 1ML VIAL SQ SCH ×2 (09:48→21:53)
[2017-03-24] MEDS: FOLIC ACID 1 MG TABLET (FP) PO SCH (09:48)
[2017-03-24] MEDS: ASPIRIN 81 MG CHEWABLE TABLETS PO SCH (09:48)
[2017-03-24] MEDS: THIAMINE HCL 200 MG/2 ML VIAL IM SCH (09:48)
[2017-03-24] MEDS: levETIRAcetam 500 MG/5 ML ORAL SOLUTION (UNIT-DOSE CUPS) PO SCH ×2 (09:56→21:53)
[2017-03-24] MEDS: ACYCLOVIR 200 MG CAPSULE PO SCH ×2 (09:57→21:53)
[2017-03-24] MEDS: rOPINIRole HCL 1 MG TABLET (FP) PO SCH (09:57)
[2017-03-24] MEDS: SODIUM CHLORIDE 1,000 ML IV SCH (14:39)
[2017-03-24] MEDS ORDERED: PT OWN MED DRAWER 7, Y5N ONE (20:27)
[2017-03-25] MEDS: PATIENT'S OWN MEDICATION (NON-FORMULARY) (Tizanidine Hcl [Tizanidine Hcl] 4 MG) PO PRN ×3 (00:12→16:52)
[2017-03-25] MEDS: METRONIDAZOLE 500 MG PREMIXED 100 ML IVPB SCH ×3 (01:56→17:43)
[2017-03-25] MEDS: ACETAMINOPHEN 325 MG TABLET (FP) PO PRN ×2 (04:22→20:42)
[2017-03-25] MEDS: ALBUTEROL SO4 0.083% IH SOL 2.5 MG/3 ML VIAL.NEB. NEB PRN (04:24)
[2017-03-25] MEDS: SODIUM CHLORIDE 1,000 ML IV SCH ×3 (06:00→23:26)
[2017-03-25] MEDS: GABAPENTIN 300 MG CAPSULE (FP) PO SCH ×3 (06:16→22:21)
--- NOTE | 2017-03-25 08:49 | PN ---
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 (short form) - Note 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: Pt seen/ examined. events noted awake/ comfortable. chronic ill appearance. periods of confusion afebrile today denies coughing wants to go home. Vital Signs Temp 99.8 F H 03/25/17 05:53 Pulse 91 H 03/25/17 05:53 Resp 20 03/25/17 05:53 BP 111/59 03/25/17 05:53 Pulse Ox 99 03/24/17 21:00 Intake & Output 03/24/17 03/24/17 03/25/17 11:59 23:59 11:59 Intake Total 2300 1740 1080 Balance 2300 1740 1080 Weight 133 lb 2 oz 141 lb 2 oz Intake: IV 800 1000 880 Normal Saline - 1,000 ml 800 1000 880 @ 80 mls/hr IV ASDIR [facility] Rx#:[id number] IVPB 300 100 100 Oral 800 640 100 Tube Irrigant 400 Other: Voiding Method Urinal Urinal # Unmeasured Voids Void 1 2 3 Bowel Movement No No Yes # Bowel Movements 1 [facility] Active Medications Acetaminophen (Tylenol -) 650 mg PO Q6H PRN PRN Reason: FEVER OR PAIN Last Admin: 03/25/17 04:22 Dose: 650 mg Acyclovir (Zovirax -) 200 mg PO BID [facility] Last Admin: 03/24/17 21:53 Dose: 200 mg Albuterol Sulfate (Ventolin 0.083% Nebulizer Soln -) 1 amp NEB Q4H PRN PRN Reason: SHORT OF BREATH/WHEEZING Last Admin: 03/25/17 04:24 Dose: 1 amp Aspirin (Asa -) 81 mg PO DAILY [facility] Last Admin: 03/24/17 09:48 Dose: 81 mg Clonazepam (Klonopin -) 1 mg PO Q12H PRN Folic Acid (Folic Acid -) 1 mg PO DAILY [facility] Last Admin: 03/24/17 09:48 Dose: 1 mg Gabapentin (Neurontin -) 300 mg PO TID [facility] Last Admin: 03/25/17 06:16 Dose: 300 mg Heparin Sodium (Porcine) (Heparin -) 5,000 unit SQ BID [facility] Last Admin: 03/24/17 21:53 Dose: 5,000 unit Levofloxacin (Levaquin 500 Mg Premixed Ivpb -) 100 mls @ 100 mls/hr IVPB DAILY [facility] Last Admin: 03/24/17 09:00 Dose: 100 mls/hr Metronidazole (Flagyl 500mg Premixed Ivpb -) 100 mls @ 100 mls/hr IVPB Q8H-IV [facility] Last Admin: 03/25/17 01:56 Dose: 100 mls/hr Sodium Chloride (Normal Saline -) 1,000 mls @ 80 mls/hr IV ASDIR [facility] Last Admin: 03/25/17 06:00 Dose: 80 mls/hr Levetiracetam (Keppra Oral Solution -) 750 mg PO BID [facility] Last Admin: 03/24/17 21:53 Dose: 750 mg Magnesium Oxide (Mag-Ox -) 400 mg PO DAILY [facility] Last Admin: 03/24/17 09:48 Dose: 400 mg Non-Formulary Medication (Tizanidine Hcl [Tizanidine Hcl]) 4 mg PO Q8H PRN PRN Reason: MUSCLE SPASMS/PAIN Last Admin: 03/25/17 00:12 Dose: 4 mg Oxycodone HCl (Oxycontin -) 30 mg PO BID [facility] Last Admin: 03/24/17 21:52 Dose: 30 mg Pantoprazole Sodium (Protonix -) 40 mg PO DAILY [facility] Last Admin: 03/24/17 09:48 Dose: 40 mg Ropinirole HCl (Requip -) 1 mg PO DAILY [facility] Last Admin: 03/24/17 09:57 Dose: 1 mg Thiamine HCl (Vitamin B1 Injection -) 200 mg IM DAILY [facility] Last Admin: 03/24/17 09:48 Dose: 200 mg CBC, BMP 03/22/17 14:50 03/22/17 14:50 Microbiology 03/22/17 14:50 Blood Culture - Preliminary Blood - Peripheral Venous NO GROWTH OBTAINED AFTER 48 HOURS, INCUBATION TO CONTINUE FOR 3 DAYS. 03/22/17 14:50 Blood Culture - Preliminary Blood - Peripheral Venous NO GROWTH OBTAINED AFTER 48 HOURS, INCUBATION TO CONTINUE FOR 3 DAYS. 03/22/17 19:05 Urine Culture - Final Urine - Urine Clean Catch Physical Examination Constitutional: Yes:comfortable/ no distress. chronic ill appearance. Eyes: Yes: Conjunctiva Clear. Neck: Yes: Supple. Cardiovascular: Yes: Regular Rate and Rhythm Respiratory: Yes: Diminished,scattered rhonchi Gastrointestinal: Yes: Soft-- g tube in place Edema: No Neurological: Yes: Other (awake) Assessment/Plan clinically better continue abx-- taper steroids fall precautions. oob - chair physical therapy barium swallow. discussed with pts . will follow Problem List - Problems (1) Alcohol dependence with uncomplicated withdrawal Code(s): F10.230 - ALCOHOL DEPENDENCE WITH WITHDRAWAL, UNCOMPLICATED (2) Dyspnea Code(s): R06.00 - DYSPNEA, UNSPECIFIED Qualifiers: Dyspnea type: shortness of breath Qualified Code(s): R06.02 - Shortness of breath; R06.00 - Dyspnea, unspecified; R06.01 - Orthopnea (3) Lung cancer Code(s): C34.90 - MALIGNANT NEOPLASM OF UNSP PART OF UNSP BRONCHUS OR LUNG (4) Restless leg Code(s): G25.81 - RESTLESS LEGS SYNDROME (5) Seizure Code(s): R56.9 - UNSPECIFIED CONVULSIONS (6) COPD with exacerbation Code(s): J44.1 - CHRONIC OBSTRUCTIVE PULMONARY DISEASE W (ACUTE) EXACERBATION (7) History of throat cancer Code(s): Z85.819 - PRSNL HX OF MALIG NEOPLM OF UNSP SITE LIP,ORAL CAV,& PHARYNX
[2017-03-25] MEDS: rOPINIRole HCL 1 MG TABLET (FP) PO SCH (09:56)
[2017-03-25] MEDS: levETIRAcetam 500 MG/5 ML ORAL SOLUTION (UNIT-DOSE CUPS) PO SCH ×2 (09:56→22:21)
[2017-03-25] MEDS: ACYCLOVIR 200 MG CAPSULE PO SCH ×2 (09:57→22:22)
[2017-03-25] MEDS: THIAMINE HCL 200 MG/2 ML VIAL IM SCH (09:57)
[2017-03-25] MEDS: HEPARIN NA (PORCINE) 5,000 UNITS/ML 1ML VIAL SQ SCH ×2 (09:57→22:22)
[2017-03-25] MEDS: FOLIC ACID 1 MG TABLET (FP) PO SCH (09:58)
[2017-03-25] MEDS: oxyCODONE HCL 10 MG SUSTAINED ACTING TABLET PO SCH ×2 (09:58→22:20)
[2017-03-25] MEDS: PANTOPRAZOLE 40 MG TABLET (FP) PO SCH (09:58)
[2017-03-25] MEDS: ASPIRIN 81 MG CHEWABLE TABLETS PO SCH (09:59)
[2017-03-25] MEDS: MAGNESIUM OXIDE 400 MG TABLET (FP) PO SCH (09:59)
--- NOTE | 2017-03-25 10:49 | CONSULT ---
Admitting History and Physical - Primary Care Physician PCP: Katiana He - Admission History of Present Illness: Per EMR: History of Present Illness: 66-year-old male with history of throat cancer -- s/p recent RT--current smoker , COPD, lung ca-- s/p lobectomy , chronic pain issues , seizure disorder and current alcoholic presents with difficulty breathing along with dry secretions that he cannot expectorate. Patient states was seen by his oncologist earlier this week and was given expectorant but has had minimal success. Patient denies fever, chills, increased cough, chest pain, or nausea. Patient states has a PEG tube which he gives himself his feeding through but drinks alcohol daily through his mouth including whiskey and beer. Patient states last drink was this morning. pt found in copd exac/ alcohol withdrawal pt given fluids/ steroids/ nebulizer treatment in er. pt seen by me in er. well known to me discussed with er physician. Also discussed with who at bedside non compliant pt. Per RD:"66 y/o M 5'9" 03/16 115# BMI 17.0 DBW 147-179# 78%lower end DBW Admit w/ COPD, Alcohol withdrawal, laryngeal cancer pmh includes: ETOH abuse, current smoker, Esophageal cancer, lung Ca/lower lobectomy, Asthma, COPD, Seizure disorder (alcohol induced) Skin: SS 14 (-) pressure ulcers Diet, intake and weight history: - TF: Jevity 1.5 at 50ml/hr. Water flush 40ml/hr. (42 hr pump check reveals average daily intake of 1075ml TF and 846ml flush> 1613Cal, 69 g protein, 817ml free water + 846flush= 1663ml total free water) - PO diet: Puree diet; Allergy shellfish; 75%, 100% intake yesterday. 50% today at breakfast per [facility]. - Pt screened for poor intake & difficulty swallowing. At today's visit, pt reporting good tolerance with current puree diet; no swallowing difficulties reported. At home, eats soft foods and administers feeds of 2-4 cans/day. Pt doesn't remember the formula he takes, stating he often "forgets a lot of stuff " & purchases his formula & food. Drinks 2 cans/day beer daily; lately also drinking shots of [place] 6 times/day. Eats PO meals at home "once in a while" depending on how he feels. Diet order 03/17- pureed diet thin liquid 03/22-pureed diet/thickened liquid Selected Entries 03/21/17 03/21/17 03/21/17 06:06 08:00 11:47 Breakfast 75% Lunch Supper Temperature 97.4 F L 97.9 F 03/21/17 03/21/17 03/21/17 15:21 17:05 18:22 Breakfast Lunch 50% Supper 100% Temperature 98.3 F 98.1 F 03/21/17 03/22/17 03/22/17 22:00 06:00 10:00 Breakfast 25% Lunch Supper Temperature 97.9 F 99.9 F H 03/22/17 03/22/17 03/22/17 14:22 14:46 16:55 Breakfast Lunch 0 Supper Temperature 101.2 F H 100.3 F H 99.6 F 03/22/17 03/22/17 03/22/17 18:30 18:57 21:57 Breakfast Lunch Supper 75% Temperature 97.6 F 98 F 03/22/17 03/22/17 03/23/17 22:00 23:05 06:00 Breakfast Lunch Supper 75% Temperature 97 F L 97.5 F L 03/23/17 03/23/17 03/23/17 09:00 09:30 10:00 Breakfast 50% Lunch Supper Temperature 100 F H 102.2 F H 03/23/17 03/23/17 03/23/17 11:45 13:31 14:01 Breakfast Lunch Supper Temperature 100.9 F H 100.9 F H 101.9 F H 03/23/17 03/23/17 03/23/17 14:04 17:27 19:00 Breakfast Lunch 0 Supper Temperature 99.8 F H 97.5 F L 03/23/17 03/23/17 03/23/17 21:00 23:00 23:28 Breakfast Lunch Supper 50% Temperature 97.8 F 97.6 F 03/24/17 03/24/17 03/24/17 01:00 01:10 03:00 Breakfast Lunch Supper Temperature 97.6 F 97.7 F 97.7 F 03/24/17 03/24/17 03/24/17 05:00 06:00 07:00 Breakfast Lunch Supper Temperature 97.8 F 97.2 F L 97.2 F L 03/24/17 03/24/17 03/24/17 09:53 10:00 11:53 Breakfast 50% Lunch Supper Temperature 97.3 F L 97.3 F L 97.3 F L 03/24/17 03/24/17 03/24/17 13:53 15:42 15:48 Breakfast 100% Lunch 75% Supper Temperature 97.5 F L 97.6 F 03/24/17 03/24/17 03/24/17 15:53 17:42 17:53 Breakfast Lunch Supper Temperature 97.6 F 100.5 F H 100.5 F H 03/24/17 03/24/17 03/24/17 21:53 22:00 22:55 Breakfast Lunch Supper 75% Temperature 100.2 F H 100.2 F H 03/25/17 03/25/17 03/25/17 01:53 04:23 05:53 Breakfast Lunch Supper Temperature 100.3 F H 100.5 F H 99.8 F H Laboratory Tests 03/21/17 03/22/17 06:00 14:50 WBC 19.4 H D 15.4 H This is my first consult with Mr. Mcfarland. His served as informant, as pt is confused. She reports confusion and slow speech started during this admission. She reports h/o LT ETOH abuse/smoking, with dx of laryngeal CA/Esoph CA 2014, with Chemo/RT/PEG. He was advised to be NPO, but has continued drinking ETOH/ smoking. She said he has Stage IV laryngeal CA, and plan was for PET scan, but he was hospitalized. History Source: Family Member Limitations to Obtaining History: Clinical Condition, Poor Historian - Past Medical History [employer]: Yes: Seizure (alcohol induced) Cardiovascular: Yes: CAD, Other (STENTING) Pulmonary: Yes: Cancer (lung Ca), COPD Gastrointestinal: Yes: GERD, Other (Duodenal ulcers- cauterized july 2014) Psych: Yes: Addictions, Anxiety Musculoskeletal: Yes: Chronic low back pain - Past Surgical History Past Surgical History: Yes: Thoracotomy - Advance Directives Advance Directives: Yes: Health Care Proxy - Smoking History Smoking history: Current every day smoker Have you smoked in the past 12 months: Yes Aproximately how many cigarettes per day: 10 If you are a former smoker, when did you quit?: 1 month ago - Alcohol/Substance Use Hx Alcohol Use: Yes Number of Drinks Daily: 8 History of Substance Use: reports: None. denies: Prescription - Social History ADL: Family Assistance History of Recent Travel: No History - Admission Reason For Visit: COPD/ALCOHOL WITHDRAWAL/LARYNGEAL CA - Diagnostics CT Scan: Report Reviewed (head- no acute changes) - General Mental Status: Awake and Alert, Confused, Flat Affect Attention: Distractible Ability to Follow Directions: Fair Head/Neck Control: Fair - Hearing Hearing: Impaired Hearing Aide: No With Patient: No Speech Evaluation - Communication Primary Language: FAROESE Communication: Yes: Simple Responses Oral Expression Ability: Yes: Moderate Impairment - Speech Production Able to Make Needs Known: Yes: Mildly Impaired, Moderately Impaired Intelligibility: Yes: Mildly Impaired, Moderately Impaired - Speech Characteristics Voice Loudness: Normal Voice Pitch: Yes: Normal Voice Phonatory-based Quality: Yes: Harsh Speech Pattern: Impaired Speech Clarity: < 50% Nasal Resonance: Normal Articulation: Yes: Imprecise Rate of Speech: Too Slow - Swallow Evaluation/Bedside Assessment Current Nutritional Intake: Dysphagia Pureed, Honey Textured Liquids, G Tube ( Jevity) Oral Secretions: Yes: WFL, Dryness, Tongue Coated (with food) Dentition: Yes: Missing Teeth Facial Symmetry at Rest: Symmetrical Facial Symmetry on Retraction: Symmetrical Facial Movement: Controlled Against Resistance Opening: Weak Against Resistance Closing: Weak Pucker Lips: Weak Smile: Weak Lingual Movement: Symmetric Lingual Speed of Movement: Reduced Lingual Movement Strgth Against Opposition: Reduced Laryngeal Movement: Labored,delay initiation Labial Seal: WFL Oral Prep Time: Increased Timing of Swallow: Delayed Coughing/Throat Clear: No Change in Voice: No Recommendations - Speech Evaluation, Impression/Plan Impression: This is my first consult with Mr. Mcfarland. Pt is confused. She reports confusion and slow speech started during this admission. She reports h/ o LT ETOH abuse/smoking, with dx of laryngeal CA/Esoph CA 2014, with Chemo/RT/ PEG. He was advised to be NPO, but has continued drinking ETOH/smoking.Pt has reportedly not had a previous dysphagia w/u. She said he has Stage IV laryngeal CA, and plan was for PET scan, but he was hospitalized. Swallowing overtly appears functional with puree and honey thick liquid. However, high risk of SILENT aspiration with laryngeal CA. Pt has had fever and elevated WBC. - Dysphagia Impressions/Plan Dysphagia Impressions: Ongoing Evaluation, Suspect Aspiration *Silent aspiration: cannot be R/O at bedside Recommendations: MBS w Esophagus - Recommendations Diet Consistency: Dysphagia Pureed Medication Administration: Crushed with applesauce Liquids: Honey Thick
[2017-03-25] MEDS: LEVOFLOXACIN 500 MG IVPB 100 ML IVPB SCH (11:17)
[2017-03-25] MEDS ORDERED: PT OWN MED DRAWER 7, Y5N ONE ×2 (16:50→21:22)
[2017-03-26] MEDS: METRONIDAZOLE 500 MG PREMIXED 100 ML IVPB SCH ×3 (05:41→17:45)
[2017-03-26] MEDS: GABAPENTIN 300 MG CAPSULE (FP) PO SCH ×3 (05:41→21:56)
[2017-03-26] MEDS: ASPIRIN 81 MG CHEWABLE TABLETS PO SCH (09:47)
[2017-03-26] MEDS: PANTOPRAZOLE 40 MG TABLET (FP) PO SCH (09:47)
[2017-03-26] MEDS: MAGNESIUM OXIDE 400 MG TABLET (FP) PO SCH (09:47)
[2017-03-26] MEDS: FOLIC ACID 1 MG TABLET (FP) PO SCH (09:48)
[2017-03-26] MEDS: HEPARIN NA (PORCINE) 5,000 UNITS/ML 1ML VIAL SQ SCH ×2 (09:48→21:54)
[2017-03-26] MEDS: oxyCODONE HCL 10 MG SUSTAINED ACTING TABLET PO SCH ×2 (09:49→21:55)
[2017-03-26] MEDS: LEVOFLOXACIN 500 MG IVPB 100 ML IVPB SCH (09:49)
[2017-03-26] MEDS: levETIRAcetam 500 MG/5 ML ORAL SOLUTION (UNIT-DOSE CUPS) PO SCH ×2 (09:50→21:55)
[2017-03-26] MEDS: THIAMINE HCL 200 MG/2 ML VIAL IM SCH (09:51)
[2017-03-26] MEDS: rOPINIRole HCL 1 MG TABLET (FP) PO SCH (09:51)
[2017-03-26] MEDS: ACYCLOVIR 200 MG CAPSULE PO SCH ×2 (09:51→21:54)
--- NOTE | 2017-03-26 09:59 | PN ---
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, Physician Chief Complaint: noted MBS still has persistent low grade fever no distress - Current Medication List Current Medications: Active Medications Acetaminophen (Tylenol -) 650 mg PO Q6H PRN PRN Reason: FEVER OR PAIN Last Admin: 03/25/17 20:42 Dose: 650 mg Acyclovir (Zovirax -) 200 mg PO BID [facility] Last Admin: 03/26/17 09:51 Dose: 200 mg Aspirin (Asa -) 81 mg PO DAILY [facility] Last Admin: 03/26/17 09:47 Dose: 81 mg Clonazepam (Klonopin -) 1 mg PO Q12H PRN Folic Acid (Folic Acid -) 1 mg PO DAILY [facility] Last Admin: 03/26/17 09:48 Dose: 1 mg Gabapentin (Neurontin -) 300 mg PO TID [facility] Last Admin: 03/26/17 05:41 Dose: 300 mg Heparin Sodium (Porcine) (Heparin -) 5,000 unit SQ BID [facility] Last Admin: 03/26/17 09:48 Dose: 5,000 unit Levofloxacin (Levaquin 500 Mg Premixed Ivpb -) 100 mls @ 100 mls/hr IVPB DAILY [facility] Last Admin: 03/26/17 09:49 Dose: 100 mls/hr Metronidazole (Flagyl 500mg Premixed Ivpb -) 100 mls @ 100 mls/hr IVPB Q8H-IV [facility] Last Admin: 03/26/17 09:49 Dose: 100 mls/hr Sodium Chloride (Normal Saline -) 1,000 mls @ 80 mls/hr IV ASDIR [facility] Last Admin: 03/25/17 23:26 Dose: 80 mls/hr Levetiracetam (Keppra Oral Solution -) 750 mg PO BID [facility] Last Admin: 03/26/17 09:50 Dose: 750 mg Magnesium Oxide (Mag-Ox -) 400 mg PO DAILY [facility] Last Admin: 03/26/17 09:47 Dose: 400 mg Non-Formulary Medication (Tizanidine Hcl [Tizanidine Hcl]) 4 mg PO Q8H PRN PRN Reason: MUSCLE SPASMS/PAIN Last Admin: 03/25/17 16:52 Dose: 4 mg Oxycodone HCl (Oxycontin -) 30 mg PO BID [facility] Last Admin: 03/26/17 09:49 Dose: 30 mg Pantoprazole Sodium (Protonix -) 40 mg PO DAILY [facility] Last Admin: 03/26/17 09:47 Dose: 40 mg Ropinirole HCl (Requip -) 1 mg PO DAILY [facility] Last Admin: 03/26/17 09:51 Dose: 1 mg Thiamine HCl (Vitamin B1 Injection -) 200 mg IM DAILY [facility] Last Admin: 03/26/17 09:51 Dose: 200 mg - Objective Vital Signs: Vital Signs Temperature 98 F 03/26/17 06:00 Pulse Rate 82 03/26/17 06:00 Respiratory Rate 20 03/26/17 06:00 Blood Pressure 112/60 03/26/17 06:00 O2 Sat by Pulse Oximetry (%) 95 03/25/17 21:00 Constitutional: Yes: No Distress Cardiovascular: Yes: Regular Rate and Rhythm Respiratory: Yes: Diminished, Rhonchi Gastrointestinal: Yes: Normal Bowel Sounds, Soft, Other (peg). No: Tenderness Edema: No Labs: CBC, BMP 03/22/17 14:50 03/22/17 14:50 INR, PTT INR 1.02 (0.82-1.09) 03/17/17 07:30 Problem List - Problems (1) Alcohol dependence with uncomplicated withdrawal Code(s): F10.230 - ALCOHOL DEPENDENCE WITH WITHDRAWAL, UNCOMPLICATED (2) COPD (chronic obstructive pulmonary disease) Code(s): J44.9 - CHRONIC OBSTRUCTIVE PULMONARY DISEASE, UNSPECIFIED (3) COPD with exacerbation Code(s): J44.1 - CHRONIC OBSTRUCTIVE PULMONARY DISEASE W (ACUTE) EXACERBATION (4) Confusion with non-focal neuro exam Code(s): R41.0 - DISORIENTATION, UNSPECIFIED (5) History of throat cancer Code(s): Z85.819 - PRSNL HX OF MALIG NEOPLM OF UNSP SITE LIP,ORAL CAV,& PHARYNX (6) Lung cancer, hilus Code(s): C34.00 - MALIGNANT NEOPLASM OF UNSPECIFIED MAIN BRONCHUS (7) Protein-calorie malnutrition, severe Code(s): E43 - UNSPECIFIED SEVERE PROTEIN-CALORIE MALNUTRITION Assessment/Plan PLAN Pt is febrile, ID eval culture negative iv antibiotics dc Prednisone Add Flagyl CXR-- extensive atelectasis-- chest PT and incentive spirometry Nebs as needed
[2017-03-26 10:40] LABS: BASOPHIL 0.3 % (0-2.0); EOSINOPHIL 0.9 % (0-4.5); MCH 32.4 pg (25.7-33.7); MCHC 31.5 g/dl (32.0-35.9); MEAN CELL VOLUME 102.8 fl (80-96); MEAN PLT VOLUME 9.1 fl (7.5-11.1); NEUTROPHILS 84.5 % (42.8-82.8); PLATELET COUNT 171 K/MM3 (134-434); RDW 15.5 % (11.9-15.9); WHITE BLOOD COUNT 13.7 K/mm3 (4.0-10.0)
[2017-03-26 11:15] LABS: ALBUMIN 1.8 g/dl (3.4-5.0); ANION GAP 5 (8-16); BILIRUBIN,TOTAL 0.2 mg/dL (0.2-1.0); CO2 31 mmol/L (21-32); CREATININE 0.8 mg/dL (0.7-1.3); GLUCOSE,RANDOM 105 mg/dL (74-106); SGOT/AST 19 U/L (15-37); SGPT/ALT 17 U/L (12-78); TOT PROT 4.7 g/dl (6.4-8.2)
[2017-03-26 11:16] LABS: ALK PHOS 70 U/L (45-117)
--- NOTE | 2017-03-26 13:29 | PN ---
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, CERTIFIED DENTAL ASSISTANT - Note 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: MBS reviewed with family, RD and Nursing. Selected Entries 03/25/17 03/25/17 03/25/17 01:53 04:23 05:53 Breakfast Supper Temperature 100.3 F H 100.5 F H 99.8 F H 03/25/17 03/25/17 03/25/17 10:00 20:26 22:18 Breakfast Supper Temperature 97.5 F L 100.6 F H 100.2 F H 03/25/17 03/26/17 03/26/17 22:43 01:40 06:00 Breakfast Supper 25% Temperature 99.6 F 98 F 03/26/17 03/26/17 09:00 10:00 Breakfast 25% Supper Temperature 100.4 F H Laboratory Tests 03/26/17 10:28 WBC 13.7 H Suggest diet change to Dys minced/thin liquid,Ensure TID, Calorie count, Nocturnal TF for possible weaning from GT.
[2017-03-26] MEDS ORDERED: ALBUTEROL SO4 0.083% IH SOL 2.5 MG/3 ML VIAL.NEB. NEB ONE (14:29)
[2017-03-26] MEDS ORDERED: ALBUTEROL SO4 0.083% IH SOL 2.5 MG/3 ML VIAL.NEB. NEB PRN (14:45)
--- NOTE | 2017-03-26 16:24 | PN ---
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 (short form) - Note 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: ID Consult dictated LLL pneumonia v. atelectasis Fever/ leukocytosis Hx throat c/s S/P RT Hx Lung ca repeat BC Sputum c/s , legionella ag Follow up CXR Empiric ceftriaxone/ flagyl
[2017-03-26] MEDS: CEFTRIAXONE 2 GM in DEXTROSE 5%-WATER 100 ML IVPB SCH (17:45)
[2017-03-26] MEDS: SODIUM CHLORIDE 1,000 ML IV SCH (17:47)
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
[2017-03-27] MEDS: METRONIDAZOLE 500 MG PREMIXED 100 ML IVPB SCH ×3 (02:25→17:25)
[2017-03-27] MEDS: GABAPENTIN 300 MG CAPSULE (FP) PO SCH (06:25)
[2017-03-27 07:24] LABS: MCH 32.7 pg (25.7-33.7); MCHC 31.9 g/dl (32.0-35.9); MEAN CELL VOLUME 102.6 fl (80-96); MEAN PLT VOLUME 9.3 fl (7.5-11.1); PLATELET COUNT 148 K/MM3 (134-434); RDW 15.4 % (11.9-15.9); WHITE BLOOD COUNT 13.1 K/mm3 (4.0-10.0)
[2017-03-27 07:51] LABS: ANION GAP 5 (8-16); CO2 29 mmol/L (21-32); CREATININE 0.6 mg/dL (0.7-1.3); GLUCOSE,RANDOM 94 mg/dL (74-106)
[2017-03-27] MEDS ORDERED: DEXTROSE 5%-WATER 100 ML IVPB ONE (09:19)
[2017-03-27] MEDS: ASPIRIN 81 MG CHEWABLE TABLETS PO SCH (09:35)
[2017-03-27] MEDS: PANTOPRAZOLE 40 MG TABLET (FP) PO SCH (09:36)
[2017-03-27] MEDS: FOLIC ACID 1 MG TABLET (FP) PO SCH (09:36)
[2017-03-27] MEDS: oxyCODONE HCL 10 MG SUSTAINED ACTING TABLET PO SCH ×2 (09:36→21:38)
[2017-03-27] MEDS: MAGNESIUM OXIDE 400 MG TABLET (FP) PO SCH (09:36)
[2017-03-27] MEDS: HEPARIN NA (PORCINE) 5,000 UNITS/ML 1ML VIAL SQ SCH ×2 (09:38→21:38)
[2017-03-27] MEDS: THIAMINE HCL 200 MG/2 ML VIAL IM SCH (09:38)
[2017-03-27] MEDS: CEFTRIAXONE 2 GM in DEXTROSE 5%-WATER 100 ML IVPB SCH (09:38)
[2017-03-27] MEDS: levETIRAcetam 500 MG/5 ML ORAL SOLUTION (UNIT-DOSE CUPS) PO SCH ×2 (09:39→21:40)
[2017-03-27] MEDS: rOPINIRole HCL 1 MG TABLET (FP) PO SCH (09:39)
[2017-03-27] MEDS: ACYCLOVIR 200 MG CAPSULE PO SCH ×2 (09:40→21:40)
--- NOTE | 2017-03-27 10:51 | PN ---
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, Physician Chief Complaint: spoke with daughter at bedside pt is awake weak - Current Medication List Current Medications: Active Medications Acetaminophen (Tylenol -) 650 mg PO Q6H PRN PRN Reason: FEVER OR PAIN Last Admin: 03/25/17 20:42 Dose: 650 mg Acyclovir (Zovirax -) 200 mg PO BID [facility] Last Admin: 03/27/17 09:40 Dose: 200 mg Albuterol Sulfate (Ventolin 0.083% Nebulizer Soln -) 1 amp NEB Q4H PRN PRN Reason: SHORT OF BREATH/WHEEZING Last Admin: 03/26/17 15:00 Dose: 1 amp Aspirin (Asa -) 81 mg PO DAILY [facility] Last Admin: 03/27/17 09:35 Dose: 81 mg Folic Acid (Folic Acid -) 1 mg PO DAILY [facility] Last Admin: 03/27/17 09:36 Dose: 1 mg Gabapentin (Neurontin -) 300 mg PO TID [facility] Last Admin: 03/27/17 06:25 Dose: 300 mg Heparin Sodium (Porcine) (Heparin -) 5,000 unit SQ BID [facility] Last Admin: 03/27/17 09:38 Dose: 5,000 unit Metronidazole (Flagyl 500mg Premixed Ivpb -) 100 mls @ 100 mls/hr IVPB Q8H-IV [facility] Last Admin: 03/27/17 09:36 Dose: 100 mls/hr Sodium Chloride (Normal Saline -) 1,000 mls @ 80 mls/hr IV ASDIR [facility] Last Admin: 03/26/17 17:47 Dose: 80 mls/hr Ceftriaxone Sodium 2 gm/ (Dextrose) 100 mls @ 200 mls/hr IVPB DAILY [facility] Last Admin: 03/27/17 09:38 Dose: 200 mls/hr Levetiracetam (Keppra Oral Solution -) 750 mg PO BID [facility] Last Admin: 03/27/17 09:39 Dose: 750 mg Magnesium Oxide (Mag-Ox -) 400 mg PO DAILY [facility] Last Admin: 03/27/17 09:36 Dose: 400 mg Non-Formulary Medication (Tizanidine Hcl [Tizanidine Hcl]) 4 mg PO Q8H PRN PRN Reason: MUSCLE SPASMS/PAIN Last Admin: 03/25/17 16:52 Dose: 4 mg Oxycodone HCl (Oxycontin -) 30 mg PO BID [facility] Last Admin: 03/27/17 09:36 Dose: 30 mg Pantoprazole Sodium (Protonix -) 40 mg PO DAILY [facility] Last Admin: 03/27/17 09:36 Dose: 40 mg Ropinirole HCl (Requip -) 1 mg PO DAILY [facility] Last Admin: 03/27/17 09:39 Dose: 1 mg Thiamine HCl (Vitamin B1 Injection -) 200 mg IM DAILY [facility] Last Admin: 03/27/17 09:38 Dose: 200 mg - Objective Vital Signs: Vital Signs Temperature 97.8 F 03/27/17 06:00 Pulse Rate 85 03/27/17 10:48 Respiratory Rate 20 03/27/17 06:00 Blood Pressure 89/49 03/27/17 06:00 O2 Sat by Pulse Oximetry (%) 96 03/27/17 10:48 Constitutional: Yes: No Distress Cardiovascular: Yes: Regular Rate and Rhythm Respiratory: Yes: Diminished, Rhonchi Gastrointestinal: Yes: Normal Bowel Sounds, Soft, Other (peg+). No: Distention , Tenderness Edema: No Labs: CBC, BMP 03/27/17 06:00 03/27/17 06:00 INR, PTT INR 1.02 (0.82-1.09) 03/17/17 07:30 Problem List - Problems (1) Alcohol dependence with uncomplicated withdrawal Code(s): F10.230 - ALCOHOL DEPENDENCE WITH WITHDRAWAL, UNCOMPLICATED (2) COPD (chronic obstructive pulmonary disease) Code(s): J44.9 - CHRONIC OBSTRUCTIVE PULMONARY DISEASE, UNSPECIFIED (3) COPD with exacerbation Code(s): J44.1 - CHRONIC OBSTRUCTIVE PULMONARY DISEASE W (ACUTE) EXACERBATION (4) Confusion with non-focal neuro exam Code(s): R41.0 - DISORIENTATION, UNSPECIFIED (5) History of throat cancer Code(s): Z85.819 - PRSNL HX OF MALIG NEOPLM OF UNSP SITE LIP,ORAL CAV,& PHARYNX (6) Lung cancer, hilus Code(s): C34.00 - MALIGNANT NEOPLASM OF UNSPECIFIED MAIN BRONCHUS (7) Protein-calorie malnutrition, severe Code(s): E43 - UNSPECIFIED SEVERE PROTEIN-CALORIE MALNUTRITION Assessment/Plan PLAN afebrile ID eval noted culture - repeated repeat CXR iv antibiotics dc Prednisone PT eval wean down O2 Nebs as needed
--- NOTE | 2017-03-27 11:55 | PN ---
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, Physician History of Present Illness: Awake, alert No complaints Breathing non-labored Low grade temps, elevated WBC - Current Medication List Current Medications: Active Medications Acetaminophen (Tylenol -) 650 mg PO Q6H PRN PRN Reason: FEVER OR PAIN Last Admin: 03/25/17 20:42 Dose: 650 mg Acyclovir (Zovirax -) 200 mg PO BID [facility] Last Admin: 03/27/17 09:40 Dose: 200 mg Albuterol Sulfate (Ventolin 0.083% Nebulizer Soln -) 1 amp NEB Q4H PRN PRN Reason: SHORT OF BREATH/WHEEZING Last Admin: 03/26/17 15:00 Dose: 1 amp Aspirin (Asa -) 81 mg PO DAILY [facility] Last Admin: 03/27/17 09:35 Dose: 81 mg Folic Acid (Folic Acid -) 1 mg PO DAILY [facility] Last Admin: 03/27/17 09:36 Dose: 1 mg Gabapentin (Neurontin -) 200 mg PO TID [facility] Heparin Sodium (Porcine) (Heparin -) 5,000 unit SQ BID [facility] Last Admin: 03/27/17 09:38 Dose: 5,000 unit Metronidazole (Flagyl 500mg Premixed Ivpb -) 100 mls @ 100 mls/hr IVPB Q8H-IV [facility] Last Admin: 03/27/17 09:36 Dose: 100 mls/hr Ceftriaxone Sodium 2 gm/ (Dextrose) 100 mls @ 200 mls/hr IVPB DAILY [facility] Last Admin: 03/27/17 09:38 Dose: 200 mls/hr Levetiracetam (Keppra Oral Solution -) 750 mg PO BID [facility] Last Admin: 03/27/17 09:39 Dose: 750 mg Magnesium Oxide (Mag-Ox -) 400 mg PO DAILY [facility] Last Admin: 03/27/17 09:36 Dose: 400 mg Non-Formulary Medication (Tizanidine Hcl [Tizanidine Hcl]) 4 mg PO Q8H PRN PRN Reason: MUSCLE SPASMS/PAIN Last Admin: 03/25/17 16:52 Dose: 4 mg Oxycodone HCl (Oxycontin -) 30 mg PO BID [facility] Last Admin: 03/27/17 09:36 Dose: 30 mg Pantoprazole Sodium (Protonix -) 40 mg PO DAILY [facility] Last Admin: 03/27/17 09:36 Dose: 40 mg Ropinirole HCl (Requip -) 1 mg PO DAILY [facility] Last Admin: 03/27/17 09:39 Dose: 1 mg - Objective Vital Signs: Vital Signs Temperature 97.8 F 03/27/17 06:00 Pulse Rate 85 03/27/17 10:48 Respiratory Rate 20 03/27/17 06:00 Blood Pressure 89/49 03/27/17 06:00 O2 Sat by Pulse Oximetry (%) 96 03/27/17 10:48 Constitutional: Yes: No Distress, Cachectic Cardiovascular: Yes: Regular Rate and Rhythm, S1, S2 Respiratory: Yes: Diminished Gastrointestinal: Yes: Normal Bowel Sounds, Soft. No: Tenderness Extremities: Yes: Other (stasis dermatitis) Labs: CBC, BMP 03/27/17 06:00 03/27/17 06:00 INR, PTT INR 1.02 (0.82-1.09) 03/17/17 07:30 Assessment/Plan LLL pneumonia v. atelectasis Fever/ leukocytosis Laryngeal ca S/P RT Await cultures Follow up CXR Continue empiric ceftriaxone / flagyl
--- NOTE | 2017-03-27 13:14 | PN ---
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 Selected Entries 03/26/17 03/26/17 03/26/17 01:40 06:00 09:00 Breakfast 25% Lunch Supper Temperature 99.6 F 98 F 03/26/17 03/26/17 03/26/17 10:00 14:00 17:14 Breakfast Lunch 50% Supper Temperature 100.4 F H 100.1 F H 99.9 F H 03/26/17 03/26/17 03/27/17 20:10 22:00 06:00 Breakfast Lunch Supper 50% Temperature 98.7 F 97.8 F 03/27/17 12:02 Breakfast 75% Lunch Supper Temperature Laboratory Tests 03/26/17 10:28 Total Protein 4.7 L Suggest: continue dys ground at this time. Monitor for sufficient caloric intake and tolerance [place] GT feeding, howwever, may be reduced based on po calorie count. RD followup.
[2017-03-27] MEDS: GABAPENTIN 100 MG CAPSULE (FP) PO SCH ×2 (14:34→21:38)
[2017-03-27] MEDS: FUROSEMIDE 40 MG/4 ML INJECTABLE VIAL IVPUSH SCH (21:37)
[2017-03-28] MEDS: METRONIDAZOLE 500 MG PREMIXED 100 ML IVPB SCH ×3 (02:53→17:31)
[2017-03-28] MEDS: GABAPENTIN 100 MG CAPSULE (FP) PO SCH ×3 (06:18→23:02)
[2017-03-28] MEDS: ACETAMINOPHEN 325 MG TABLET (FP) PO PRN (06:45)
[2017-03-28] MEDS ORDERED: DEXTROSE 5%-WATER 100 ML IVPB ONE (09:07)
[2017-03-28] MEDS: CEFTRIAXONE 2 GM in DEXTROSE 5%-WATER 100 ML IVPB SCH (09:20)
[2017-03-28] MEDS: HEPARIN NA (PORCINE) 5,000 UNITS/ML 1ML VIAL SQ SCH ×2 (09:21→23:02)
[2017-03-28] MEDS: FUROSEMIDE 40 MG/4 ML INJECTABLE VIAL IVPUSH SCH (09:21)
[2017-03-28] MEDS: MAGNESIUM OXIDE 400 MG TABLET (FP) PO SCH (09:22)
[2017-03-28] MEDS: oxyCODONE HCL 10 MG SUSTAINED ACTING TABLET PO SCH ×2 (09:22→23:02)
[2017-03-28] MEDS: PANTOPRAZOLE 40 MG TABLET (FP) PO SCH (09:22)
[2017-03-28] MEDS: ASPIRIN 81 MG CHEWABLE TABLETS PO SCH (09:22)
[2017-03-28] MEDS: FOLIC ACID 1 MG TABLET (FP) PO SCH (09:22)
[2017-03-28] MEDS: rOPINIRole HCL 1 MG TABLET (FP) PO SCH (09:25)
[2017-03-28] MEDS: ACYCLOVIR 200 MG CAPSULE PO SCH ×2 (09:26→23:02)
[2017-03-28] MEDS: levETIRAcetam 500 MG/5 ML ORAL SOLUTION (UNIT-DOSE CUPS) PO SCH ×2 (09:27→23:02)
[2017-03-28] MEDS ORDERED: PT OWN MED DRAWER 7, Y5N ONE ×3 (09:29→23:38)
--- NOTE | 2017-03-28 10:27 | PN ---
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, Physician Chief Complaint: spoke with at bedside pt is awake weak apparently he is coughing while drinking fluids even though modified barium swallow was normal - Current Medication List Current Medications: Active Medications Acetaminophen (Tylenol -) 650 mg PO Q6H PRN PRN Reason: FEVER OR PAIN Last Admin: 03/28/17 06:45 Dose: 650 mg Acyclovir (Zovirax -) 200 mg PO BID [facility] Last Admin: 03/28/17 09:26 Dose: 200 mg Albuterol Sulfate (Ventolin 0.083% Nebulizer Soln -) 1 amp NEB Q4H PRN PRN Reason: SHORT OF BREATH/WHEEZING Last Admin: 03/26/17 15:00 Dose: 1 amp Aspirin (Asa -) 81 mg PO DAILY [facility] Last Admin: 03/28/17 09:22 Dose: 81 mg Folic Acid (Folic Acid -) 1 mg PO DAILY [facility] Last Admin: 03/28/17 09:22 Dose: 1 mg Furosemide (Lasix Injection -) 40 mg IVPUSH DAILY [facility] Last Admin: 03/28/17 09:21 Dose: 40 mg Gabapentin (Neurontin -) 200 mg PO TID [facility] Last Admin: 03/28/17 06:18 Dose: 200 mg Heparin Sodium (Porcine) (Heparin -) 5,000 unit SQ BID [facility] Last Admin: 03/28/17 09:21 Dose: 5,000 unit Metronidazole (Flagyl 500mg Premixed Ivpb -) 100 mls @ 100 mls/hr IVPB Q8H-IV [facility] Last Admin: 03/28/17 09:23 Dose: 100 mls/hr Ceftriaxone Sodium 2 gm/ (Dextrose) 100 mls @ 200 mls/hr IVPB DAILY [facility] Last Admin: 03/28/17 09:20 Dose: 200 mls/hr Levetiracetam (Keppra Oral Solution -) 750 mg PO BID [facility] Last Admin: 03/28/17 09:27 Dose: 750 mg Magnesium Oxide (Mag-Ox -) 400 mg PO DAILY [facility] Last Admin: 03/28/17 09:22 Dose: 400 mg Non-Formulary Medication (Tizanidine Hcl [Tizanidine Hcl]) 4 mg PO Q8H PRN PRN Reason: MUSCLE SPASMS/PAIN Last Admin: 03/25/17 16:52 Dose: 4 mg Oxycodone HCl (Oxycontin -) 30 mg PO BID [facility] Last Admin: 03/28/17 09:22 Dose: 30 mg Pantoprazole Sodium (Protonix -) 40 mg PO DAILY [facility] Last Admin: 03/28/17 09:22 Dose: 40 mg Ropinirole HCl (Requip -) 1 mg PO DAILY [facility] Last Admin: 03/28/17 09:25 Dose: 1 mg - Objective Vital Signs: Vital Signs Temperature 100.2 F H 03/28/17 07:04 Pulse Rate 89 03/28/17 07:04 Respiratory Rate 18 03/28/17 07:04 Blood Pressure 120/60 03/28/17 07:04 O2 Sat by Pulse Oximetry (%) 96 03/27/17 21:00 Constitutional: Yes: No Distress Cardiovascular: Yes: Regular Rate and Rhythm Respiratory: Yes: Diminished, Rhonchi Gastrointestinal: Yes: Normal Bowel Sounds, Soft. No: Tenderness Edema: No Labs: CBC, BMP 03/27/17 06:00 03/27/17 06:00 INR, PTT INR 1.02 (0.82-1.09) 03/17/17 07:30 Problem List - Problems (1) Alcohol dependence with uncomplicated withdrawal Code(s): F10.230 - ALCOHOL DEPENDENCE WITH WITHDRAWAL, UNCOMPLICATED (2) COPD (chronic obstructive pulmonary disease) Code(s): J44.9 - CHRONIC OBSTRUCTIVE PULMONARY DISEASE, UNSPECIFIED (3) COPD with exacerbation Code(s): J44.1 - CHRONIC OBSTRUCTIVE PULMONARY DISEASE W (ACUTE) EXACERBATION (4) Confusion with non-focal neuro exam Code(s): R41.0 - DISORIENTATION, UNSPECIFIED (5) History of throat cancer Code(s): Z85.819 - PRSNL HX OF MALIG NEOPLM OF UNSP SITE LIP,ORAL CAV,& PHARYNX (6) Lung cancer, hilus Code(s): C34.00 - MALIGNANT NEOPLASM OF UNSPECIFIED MAIN BRONCHUS (7) Protein-calorie malnutrition, severe Code(s): E43 - UNSPECIFIED SEVERE PROTEIN-CALORIE MALNUTRITION Assessment/Plan PLAN afebrile ID eval noted culture -negative repeat CXR shows congestive changes spoke with swallow therapist, continue with G-tube feeds.Keep NPO for now iv antibiotics dc Prednisone PT eval wean down O2 Nebs as needed
--- NOTE | 2017-03-28 11:02 | PN ---
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, Physician History of Present Illness: Awake, more responsive + cough noted; difficulty mobilizing secretions no c/o dyspnea/ chest pain Temps appear better WBC slightly elevated Cultures pending Follow up CXR shows almost complete opacification of L hemithorax, R basilar infiltrate v. effusion - Current Medication List Current Medications: Active Medications Acetaminophen (Tylenol -) 650 mg PO Q6H PRN PRN Reason: FEVER OR PAIN Last Admin: 03/28/17 06:45 Dose: 650 mg Acyclovir (Zovirax -) 200 mg PO BID [facility] Last Admin: 03/28/17 09:26 Dose: 200 mg Albuterol Sulfate (Ventolin 0.083% Nebulizer Soln -) 1 amp NEB Q4H PRN PRN Reason: SHORT OF BREATH/WHEEZING Last Admin: 03/26/17 15:00 Dose: 1 amp Aspirin (Asa -) 81 mg PO DAILY [facility] Last Admin: 03/28/17 09:22 Dose: 81 mg Folic Acid (Folic Acid -) 1 mg PO DAILY [facility] Last Admin: 03/28/17 09:22 Dose: 1 mg Furosemide (Lasix Injection -) 40 mg IVPUSH DAILY [facility] Last Admin: 03/28/17 09:21 Dose: 40 mg Gabapentin (Neurontin -) 200 mg PO TID [facility] Last Admin: 03/28/17 06:18 Dose: 200 mg Heparin Sodium (Porcine) (Heparin -) 5,000 unit SQ BID [facility] Last Admin: 03/28/17 09:21 Dose: 5,000 unit Metronidazole (Flagyl 500mg Premixed Ivpb -) 100 mls @ 100 mls/hr IVPB Q8H-IV [facility] Last Admin: 03/28/17 09:23 Dose: 100 mls/hr Ceftriaxone Sodium 2 gm/ (Dextrose) 100 mls @ 200 mls/hr IVPB DAILY [facility] Last Admin: 03/28/17 09:20 Dose: 200 mls/hr Levetiracetam (Keppra Oral Solution -) 750 mg PO BID [facility] Last Admin: 03/28/17 09:27 Dose: 750 mg Magnesium Oxide (Mag-Ox -) 400 mg PO DAILY [facility] Last Admin: 03/28/17 09:22 Dose: 400 mg Non-Formulary Medication (Tizanidine Hcl [Tizanidine Hcl]) 4 mg PO Q8H PRN PRN Reason: MUSCLE SPASMS/PAIN Last Admin: 03/25/17 16:52 Dose: 4 mg Oxycodone HCl (Oxycontin -) 30 mg PO BID [facility] Last Admin: 03/28/17 09:22 Dose: 30 mg Pantoprazole Sodium (Protonix -) 40 mg PO DAILY [facility] Last Admin: 03/28/17 09:22 Dose: 40 mg Ropinirole HCl (Requip -) 1 mg PO DAILY [facility] Last Admin: 03/28/17 09:25 Dose: 1 mg - Objective Vital Signs: Vital Signs Temperature 100.2 F H 03/28/17 07:04 Pulse Rate 74 03/28/17 10:58 Respiratory Rate 18 03/28/17 07:04 Blood Pressure 120/60 03/28/17 07:04 O2 Sat by Pulse Oximetry (%) 95 03/28/17 10:58 Constitutional: Yes: No Distress Eyes: Yes: Conjunctiva Clear Cardiovascular: Yes: Regular Rate and Rhythm, S1, S2 Respiratory: Yes: Rales, Rhonchi, Other ( + rhonchi and crepitations L base) Gastrointestinal: Yes: Normal Bowel Sounds, Soft. No: Tenderness Edema: No Integumentary: Yes: Venous Stasis Changes Labs: CBC, BMP 03/27/17 06:00 03/27/17 06:00 INR, PTT INR 1.02 (0.82-1.09) 03/17/17 07:30 Assessment/Plan LLL pneumonia v. atelectasis Fever/ leukocytosis Laryngeal ca S/P RT Await cultures Continue empiric ceftriaxone / flagyl
--- NOTE | 2017-03-28 12:37 | PN ---
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 effusion Diet downgraded to dys puree/nectar. Received some thin liquid. Pt with cough with and without PO intake. More congested,with increased phlegm. Discussed pt's end of wishes with pt's . She said she does not want resuscitative measures. Nursing was present and will call PMD. Tongue coated -Food vs thrush? Suggest NPO /GT feedings until pulmonary status improves. Suction PRN/elevate HOB/Mouth care. Aspiration? MBS (-) aspiration/normal swallowing function.
[2017-03-29] MEDS: METRONIDAZOLE 500 MG PREMIXED 100 ML IVPB SCH ×3 (01:44→17:37)
[2017-03-29] MEDS: GABAPENTIN 100 MG CAPSULE (FP) PO SCH ×3 (05:07→23:08)
[2017-03-29] MEDS: ACETAMINOPHEN 325 MG TABLET (FP) PO PRN ×2 (05:07→12:26)
--- NOTE | 2017-03-29 10:01 | PN ---
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 (short form) - Note 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: Patient seen and examined. events noted Currently nothing by mouth Getting GT feedings Wants to go home Awake No distress Week/cachectic Vital Signs Temp 98.4 F 03/28/17 22:00 Pulse 82 03/28/17 22:00 Resp 20 03/28/17 22:00 BP 110/68 03/28/17 22:00 Pulse Ox 95 03/28/17 21:00 Intake & Output 03/28/17 03/28/17 03/29/17 11:59 23:59 11:59 Intake Total 950 1214 919 Balance 950 1214 919 Weight 144 lb 7 oz Intake: IVPB 100 300 100 Oral 400 300 Tube Feeding 250 380 497 Tube Irrigant 200 234 322 Other: Voiding Method Diaper Diaper # Unmeasured Voids Void 2 2 2 Bowel Movement No Yes # Bowel Movements 1 [facility] Active Medications Acetaminophen (Tylenol -) 650 mg PO Q6H PRN PRN Reason: FEVER OR PAIN Last Admin: 03/29/17 05:07 Dose: 650 mg Acyclovir (Zovirax -) 200 mg PO BID [facility] Last Admin: 03/28/17 23:02 Dose: 200 mg Albuterol Sulfate (Ventolin 0.083% Nebulizer Soln -) 1 amp NEB Q4H PRN PRN Reason: SHORT OF BREATH/WHEEZING Last Admin: 03/26/17 15:00 Dose: 1 amp Aspirin (Asa -) 81 mg PO DAILY [facility] Last Admin: 03/28/17 09:22 Dose: 81 mg Folic Acid (Folic Acid -) 1 mg PO DAILY [facility] Last Admin: 03/28/17 09:22 Dose: 1 mg Furosemide (Lasix Injection -) 40 mg IVPUSH DAILY [facility] Last Admin: 03/28/17 09:21 Dose: 40 mg Gabapentin (Neurontin -) 200 mg PO TID [facility] Last Admin: 03/29/17 05:07 Dose: 200 mg Heparin Sodium (Porcine) (Heparin -) 5,000 unit SQ BID [facility] Last Admin: 03/28/17 23:02 Dose: 5,000 unit Metronidazole (Flagyl 500mg Premixed Ivpb -) 100 mls @ 100 mls/hr IVPB Q8H-IV [facility] Last Admin: 03/29/17 01:44 Dose: 100 mls/hr Ceftriaxone Sodium 2 gm/ (Dextrose) 100 mls @ 200 mls/hr IVPB DAILY [facility] Last Admin: 03/28/17 09:20 Dose: 200 mls/hr Levetiracetam (Keppra Oral Solution -) 750 mg PO BID [facility] Last Admin: 03/28/17 23:02 Dose: 750 mg Magnesium Oxide (Mag-Ox -) 400 mg PO DAILY [facility] Last Admin: 03/28/17 09:22 Dose: 400 mg Non-Formulary Medication (Tizanidine Hcl [Tizanidine Hcl]) 4 mg PO Q8H PRN PRN Reason: MUSCLE SPASMS/PAIN Last Admin: 03/25/17 16:52 Dose: 4 mg Oxycodone HCl (Oxycontin -) 30 mg PO BID [facility] Last Admin: 03/28/17 23:02 Dose: 30 mg Pantoprazole Sodium (Protonix -) 40 mg PO DAILY [facility] Last Admin: 03/28/17 09:22 Dose: 40 mg Ropinirole HCl (Requip -) 1 mg PO DAILY [facility] Last Admin: 03/28/17 09:25 Dose: 1 mg CBC, BMP 03/27/17 06:00 03/27/17 06:00 cxr- noted Physical exam Constitutional: Yes: No Distress, weak and cachectic Eyes: Yes: Conjunctiva Clear Cardiovascular: Yes: Regular Rate and Rhythm, S1, S2 Respiratory: Yes: Diminished Gastrointestinal: Yes: Normal Bowel Sounds, Soft. No: Tenderness Edema: No Neuro- awake Assessment and plan Likely aspiration pneumonia Atelectasis Continue present care Activity with nothing by mouth Continue Lasix Check echo Pulmonary valve Check BNP Overall condition poor. Will follow Problem List - Problems (1) Alcohol dependence with uncomplicated withdrawal Code(s): F10.230 - ALCOHOL DEPENDENCE WITH WITHDRAWAL, UNCOMPLICATED (2) Dyspnea Code(s): R06.00 - DYSPNEA, UNSPECIFIED Qualifiers: Dyspnea type: shortness of breath Qualified Code(s): R06.02 - Shortness of breath; R06.00 - Dyspnea, unspecified; R06.01 - Orthopnea (3) Lung cancer Code(s): C34.90 - MALIGNANT NEOPLASM OF UNSP PART OF UNSP BRONCHUS OR LUNG (4) Restless leg Code(s): G25.81 - RESTLESS LEGS SYNDROME (5) Seizure Code(s): R56.9 - UNSPECIFIED CONVULSIONS (6) COPD with exacerbation Code(s): J44.1 - CHRONIC OBSTRUCTIVE PULMONARY DISEASE W (ACUTE) EXACERBATION (7) History of throat cancer Code(s): Z85.819 - PRSNL HX OF MALIG NEOPLM OF UNSP SITE LIP,ORAL CAV,& PHARYNX
[2017-03-29 10:30] LABS: BASOPHIL 0.2 % (0-2.0); MCH 32.9 pg (25.7-33.7); MCHC 32.4 g/dl (32.0-35.9); MEAN CELL VOLUME 101.4 fl (80-96); MEAN PLT VOLUME 8.1 fl (7.5-11.1); NEUTROPHILS 81.9 % (42.8-82.8); PLATELET COUNT 199 K/MM3 (134-434); RDW 15.4 % (11.9-15.9); WHITE BLOOD COUNT 11.9 K/mm3 (4.0-10.0)
[2017-03-29 10:56] LABS: ALBUMIN 1.7 g/dl (3.4-5.0); ANION GAP 2 (8-16); BILIRUBIN,TOTAL 0.2 mg/dL (0.2-1.0); CALCIUM 8.2 mg/dL (8.5-10.1); CO2 35 mmol/L (21-32); CREATININE 0.6 mg/dL (0.7-1.3); GLUCOSE,RANDOM 98 mg/dL (74-106); SGOT/AST 18 U/L (15-37); SGPT/ALT 13 U/L (12-78); TOT PROT 4.3 g/dl (6.4-8.2)
[2017-03-29 10:57] LABS: ALK PHOS 70 U/L (45-117)
--- NOTE | 2017-03-29 11:43 | PN ---
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, Physician History of Present Illness: Awake in bed Breathing non-labored No c/o chest pain or dyspnea + Cough, difficulty mobilizing secretions Low grade temp - Current Medication List Current Medications: Active Medications Acetaminophen (Tylenol -) 650 mg PO Q6H PRN PRN Reason: FEVER OR PAIN Last Admin: 03/29/17 05:07 Dose: 650 mg Acyclovir (Zovirax -) 200 mg PO BID [facility] Last Admin: 03/28/17 23:02 Dose: 200 mg Albuterol Sulfate (Ventolin 0.083% Nebulizer Soln -) 1 amp NEB Q4H PRN PRN Reason: SHORT OF BREATH/WHEEZING Last Admin: 03/26/17 15:00 Dose: 1 amp Aspirin (Asa -) 81 mg PO DAILY [facility] Last Admin: 03/28/17 09:22 Dose: 81 mg Folic Acid (Folic Acid -) 1 mg PO DAILY [facility] Last Admin: 03/28/17 09:22 Dose: 1 mg Furosemide (Lasix Injection -) 40 mg IVPUSH DAILY [facility] Last Admin: 03/28/17 09:21 Dose: 40 mg Gabapentin (Neurontin -) 200 mg PO TID [facility] Last Admin: 03/29/17 05:07 Dose: 200 mg Heparin Sodium (Porcine) (Heparin -) 5,000 unit SQ BID [facility] Last Admin: 03/28/17 23:02 Dose: 5,000 unit Metronidazole (Flagyl 500mg Premixed Ivpb -) 100 mls @ 100 mls/hr IVPB Q8H-IV [facility] Last Admin: 03/29/17 01:44 Dose: 100 mls/hr Ceftriaxone Sodium 2 gm/ (Dextrose) 100 mls @ 200 mls/hr IVPB DAILY [facility] Last Admin: 03/28/17 09:20 Dose: 200 mls/hr Levetiracetam (Keppra Oral Solution -) 750 mg PO BID [facility] Last Admin: 03/28/17 23:02 Dose: 750 mg Magnesium Oxide (Mag-Ox -) 400 mg PO DAILY [facility] Last Admin: 03/28/17 09:22 Dose: 400 mg Non-Formulary Medication (Tizanidine Hcl [Tizanidine Hcl]) 4 mg PO Q8H PRN PRN Reason: MUSCLE SPASMS/PAIN Last Admin: 03/25/17 16:52 Dose: 4 mg Oxycodone HCl (Oxycontin -) 30 mg PO BID [facility] Last Admin: 03/28/17 23:02 Dose: 30 mg Pantoprazole Sodium (Protonix -) 40 mg PO DAILY [facility] Last Admin: 03/28/17 09:22 Dose: 40 mg Ropinirole HCl (Requip -) 1 mg PO DAILY [facility] Last Admin: 03/28/17 09:25 Dose: 1 mg - Objective Vital Signs: Vital Signs Temperature 98.4 F 03/28/17 22:00 Pulse Rate 71 03/29/17 10:42 Respiratory Rate 20 03/28/17 22:00 Blood Pressure 110/68 03/28/17 22:00 O2 Sat by Pulse Oximetry (%) 97 03/29/17 10:42 Constitutional: Yes: No Distress, Cachectic Eyes: Yes: Conjunctiva Clear Cardiovascular: Yes: Regular Rate and Rhythm, S1, S2 Respiratory: Yes: Diminished, Other (decreased BS L lung field) Gastrointestinal: Yes: Normal Bowel Sounds, Soft. No: Tenderness Edema: No Labs: CBC, BMP 03/29/17 10:15 03/29/17 10:15 INR, PTT INR 1.02 (0.82-1.09) 03/17/17 07:30 Assessment/Plan LLL pneumonia v. atelectasis Fever/ leukocytosis Laryngeal ca S/P RT Continue empiric ceftriaxone / flagyl
[2017-03-29] MEDS ORDERED: DEXTROSE 5%-WATER 100 ML IVPB ONE ×2 (11:48→13:01)
[2017-03-29] MEDS: oxyCODONE HCL 10 MG SUSTAINED ACTING TABLET PO SCH ×2 (11:51→23:07)
[2017-03-29] MEDS: FOLIC ACID 1 MG TABLET (FP) PO SCH (11:53)
[2017-03-29] MEDS: HEPARIN NA (PORCINE) 5,000 UNITS/ML 1ML VIAL SQ SCH ×2 (11:53→23:09)
[2017-03-29] MEDS: ASPIRIN 81 MG CHEWABLE TABLETS PO SCH (11:53)
[2017-03-29] MEDS: MAGNESIUM OXIDE 400 MG TABLET (FP) PO SCH (11:54)
[2017-03-29] MEDS: PANTOPRAZOLE 40 MG TABLET (FP) PO SCH (11:54)
[2017-03-29] MEDS: levETIRAcetam 500 MG/5 ML ORAL SOLUTION (UNIT-DOSE CUPS) PO SCH ×2 (11:54→23:12)
[2017-03-29] MEDS: FUROSEMIDE 40 MG/4 ML INJECTABLE VIAL IVPUSH SCH (11:54)
[2017-03-29] MEDS: rOPINIRole HCL 1 MG TABLET (FP) PO SCH (11:54)
[2017-03-29] MEDS: CEFTRIAXONE 2 GM in DEXTROSE 5%-WATER 100 ML IVPB SCH (11:55)
[2017-03-29] MEDS: ACYCLOVIR 200 MG CAPSULE PO SCH ×2 (11:55→23:12)
--- NOTE | 2017-03-29 12:49 | CON.PULM ---
Consult Consult Specialty:: PULMONARY Referred by:: [facility] Reason for Consultation:: ABNORMAL CXR - History of Present Illness Chief Complaint: COUGH WHITE SPUTUM History of Present Illness: 66-year-old male with history of throat cancer -- s/p recent RT--current smoker , COPD, lung ca-- s/p left lower lobectomy , chronic pain issues , seizure disorder and current alcoholic presents with difficulty breathing along with dry secretions that he cannot expectorate. Patient states was seen by his oncologist earlier this week and was given expectorant but has had minimal success. Patient denies fever, chills, increased cough, chest pain, or nausea. Patient states has a PEG tube which he gives himself his feeding through but drinks alcohol daily through his mouth including whiskey and beer. Patient states last drink was omn day of admission. We have been asked to evaluate for abnormal CXR. 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 No: Alzheimer's Cardio/Vascular: Yes: CAD, Other (STENTING). No: AFIB Pulmonary: Yes: Cancer (lung Ca), COPD, Pneumonia Gastrointestinal: Yes: GERD, Other (Duodenal ulcers- cauterized july 2014) Psych: Yes: Addictions, Anxiety Musculoskeletal: Yes: Chronic low back pain - Past Surgical History Past Surgical History: Yes: Thoracotomy - Alcohol/Substance Use Hx Alcohol Use: Yes Number of Drinks Daily: 8 History of Substance Use: reports: None. denies: Prescription - Smoking History Smoking history: Current every day smoker Have you smoked in the past 12 months: Yes Aproximately how many cigarettes per day: 10 - Social History Usual Living Arrangement: With Spouse ADL: Family Assistance Place of : [facility] History of Recent Travel: No Home Medications - Allergies Allergies/Adverse Reactions: Allergies Allergy/AdvReac Type Severity Reaction Status Date / Time shellfish derived Allergy REDDNESS Verified 03/16/17 10:32 AND SWELLING Radioactive opaque dye Allergy Severe Rash Uncoded 03/16/17 10:32 - Home Medications Home Medications: Ambulatory Orders Acyclovir [Zovirax -] 200 mg PO BID 03/16/17 Albuterol Sulfate [Proair Respiclick] 90 mcg IH TID 03/16/17 Aspirin [ASA -] 81 mg PO DAILY 03/16/17 Clonazepam [Klonopin] 1 mg PO BID 03/16/17 Furosemide [Lasix] 40 mg PO DAILY 03/16/17 Gabapentin [Neurontin] 600 mg PO DAILY 03/16/17 Guaifenesin [Robitussin -] 5 ml PO QID PRN 03/16/17 Levetiracetam [Keppra -] 750 mg PO BID 03/16/17 Magnesium Oxide [Mag-Ox -] 400 mg PO BID 03/16/17 Mirtazapine [Remeron -] 15 mg PO DAILY 03/16/17 Oxycodone HCl [Oxycontin] 30 mg PO BID PRN 03/16/17 Pantoprazole Sodium [Protonix -] 40 mg PO DAILY 03/16/17 Potassium Chloride [K-Dur -] 10 meq PO DAILY 03/16/17 Ropinirole HCl 1 mg PO DAILY 03/16/17 Tizanidine HCl 4 mg PO BID 03/16/17 Tramadol HCl 50 mg PO DAILY 03/16/17 Venlafaxine HCl [Effexor -] 150 mg PO DAILY 03/16/17 Family Disease History - Family Disease History Family Disease History: Diabetes: Grandparent, CA: Father, Other: Mother ( alcoholism) Review of Systems - Review of Systems Cardiovascular: denies: Chest Pain Respiratory: reports: Cough, Exercise Intolerance, Orthopnea, SOB on Exertion, Wheezing. denies: Hemoptysis Gastrointestinal: denies: Abdominal Pain Physical Exam Vital Sings: Vital Signs Temperature 98.4 F 03/28/17 22:00 Pulse Rate 71 03/29/17 10:42 Respiratory Rate 20 03/28/17 22:00 Blood Pressure 110/68 03/28/17 22:00 O2 Sat by Pulse Oximetry (%) 97 03/29/17 10:42 Constitutional: Yes: Pallor, Poor Hygeine, Thin Eyes: Yes: Conjunctiva Clear HENT: Yes: Nasal Congestion Neck: Yes: Other (H/O LARYNGEAL CA) Cardiovascular: Yes: Regular Rate and Rhythm Respiratory: Yes: Diminished, Dullness (ON LEFT/SCATTERED CRACKLES ON RIGHT) Gastrointestinal: Yes: Other (PEG TUBE) Edema: No Neurological: Yes: Alert Labs: CBC, BMP 03/29/17 10:15 03/29/17 10:15 REST REVIEWED Imaging - Results Chest X-ray: Image Reviewed Other: Report Reviewed ([facility] [place]) Assessment/Plan 66 MALE WITH LARYNGEAL CA S/P CHEMOTX/RT HAS CHRONIC PEG ALSO ACTIVE SMOKER AND ETOHISM. CAD S/P PCI LEFT LOWER LOBECTOMY SECONDARY TO LUNG CANCER NO ADJUVANT TREATMENT AT THAT TIME 2007 SZ/ETOHISM/ACTIVE SMOKER H/O UTI/PEG NOW WITH PROGRESSIVE OPACIFICATION OF LEFT HEMITHORAX LIKELY DUE TO PNEUMONIA/ATELECTASIS WILL ORDER CT CHEST NO CONTRAST BRONCHODILATORS/CHEST PT AGREE WITH ANTIBIOTICS MAY NEED BRONCHOSCOPY WHICH MAY BE DIFFICULT IN VIEW OF H/O LARYNGEAL CA WILL FOLLOW Maribell VITALE MD
[2017-03-29] MEDS: ALBUTEROL SO4 2.5/IPRATROPIUM 0.5 INH SOL 3 ML VIAL.NEB. NEB SCH ×2 (14:15→23:00)
[2017-03-30] MEDS: METRONIDAZOLE 500 MG PREMIXED 100 ML IVPB SCH ×2 (02:17→10:47)
[2017-03-30] MEDS: GABAPENTIN 100 MG CAPSULE (FP) PO SCH ×3 (05:28→22:23)
[2017-03-30] MEDS: ALBUTEROL SO4 2.5/IPRATROPIUM 0.5 INH SOL 3 ML VIAL.NEB. NEB SCH ×3 (05:43→22:15)
--- NOTE | 2017-03-30 09:13 | PN ---
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, Physician History of Present Illness: Awake, responsive + cough noted Breathing non-labored No c/o chest pain/ dyspnea Afebrile; WBC improved Developed rash limited to back; non-pruritic BC (-) Sputum c/s normal kandy Seen by pulmonary CT chest ordered - Current Medication List Current Medications: Active Medications Acetaminophen (Tylenol -) 650 mg PO Q6H PRN PRN Reason: FEVER OR PAIN Last Admin: 03/29/17 12:26 Dose: 650 mg Acyclovir (Zovirax -) 200 mg PO BID [facility] Last Admin: 03/29/17 23:12 Dose: 200 mg Albuterol Sulfate (Ventolin 0.083% Nebulizer Soln -) 1 amp NEB Q4H PRN PRN Reason: SHORT OF BREATH/WHEEZING Last Admin: 03/26/17 15:00 Dose: 1 amp Albuterol/Ipratropium (Duoneb -) 1 amp NEB TIDR [facility] Last Admin: 03/30/17 05:43 Dose: 1 amp Aspirin (Asa -) 81 mg PO DAILY [facility] Last Admin: 03/29/17 11:53 Dose: 81 mg Folic Acid (Folic Acid -) 1 mg PO DAILY [facility] Last Admin: 03/29/17 11:53 Dose: 1 mg Furosemide (Lasix Injection -) 40 mg IVPUSH DAILY [facility] Last Admin: 03/29/17 11:54 Dose: 40 mg Gabapentin (Neurontin -) 200 mg PO TID [facility] Last Admin: 03/30/17 05:28 Dose: 200 mg Heparin Sodium (Porcine) (Heparin -) 5,000 unit SQ BID [facility] Last Admin: 03/29/17 23:09 Dose: 5,000 unit Metronidazole (Flagyl 500mg Premixed Ivpb -) 100 mls @ 100 mls/hr IVPB Q8H-IV [facility] Last Admin: 03/30/17 02:17 Dose: 100 mls/hr Ceftriaxone Sodium 2 gm/ (Dextrose) 100 mls @ 200 mls/hr IVPB DAILY [facility] Last Admin: 03/29/17 11:55 Dose: 200 mls/hr Levetiracetam (Keppra Oral Solution -) 750 mg PO BID [facility] Last Admin: 03/29/17 23:12 Dose: 750 mg Magnesium Oxide (Mag-Ox -) 400 mg PO DAILY [facility] Last Admin: 03/29/17 11:54 Dose: 400 mg Non-Formulary Medication (Tizanidine Hcl [Tizanidine Hcl]) 4 mg PO Q8H PRN PRN Reason: MUSCLE SPASMS/PAIN Last Admin: 03/25/17 16:52 Dose: 4 mg Oxycodone HCl (Oxycontin -) 30 mg PO BID [facility] Last Admin: 03/29/17 23:07 Dose: 30 mg Pantoprazole Sodium (Protonix -) 40 mg PO DAILY [facility] Last Admin: 03/29/17 11:54 Dose: 40 mg Ropinirole HCl (Requip -) 1 mg PO DAILY [facility] Last Admin: 03/29/17 11:54 Dose: 1 mg - Objective Vital Signs: Vital Signs Temperature 98.1 F 03/30/17 06:00 Pulse Rate 80 03/30/17 06:00 Respiratory Rate 20 03/30/17 06:00 Blood Pressure 124/66 03/30/17 06:00 O2 Sat by Pulse Oximetry (%) 96 03/29/17 21:00 Constitutional: Yes: No Distress, Cachectic Cardiovascular: Yes: Regular Rate and Rhythm, S1, S2 Respiratory: Yes: Rhonchi, Other (rhonchi bilaterally) Gastrointestinal: Yes: Normal Bowel Sounds, Soft. No: Tenderness Edema: No Integumentary: Yes: Other (confluent rash, limited to back) Labs: CBC, BMP 03/29/17 10:15 03/29/17 10:15 INR, PTT INR 1.02 (0.82-1.09) 03/17/17 07:30 Assessment/Plan LLL pneumonia v. atelectasis Fever/ leukocytosis improved Laryngeal ca S/P RT Continue empiric ceftriaxone / flagyl CT chest ordered Topical tx for rash
[2017-03-30] MEDS ORDERED: DEXTROSE 5%-WATER 100 ML IVPB ONE (09:50)
--- NOTE | 2017-03-30 09:58 | PN ---
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 (short form) - Note 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: Overall condition same. at bedside confused at times all f/u noted Vital Signs Temp 98.1 F 03/30/17 06:00 Pulse 80 03/30/17 06:00 Resp 20 03/30/17 06:00 BP 124/66 03/30/17 06:00 Pulse Ox 96 03/29/17 21:00 Intake & Output 03/29/17 03/29/17 03/30/17 11:59 23:59 11:59 Intake Total 209 872 7071 Output Total 300 Balance 748 846 7635 Weight 138 lb 9.6 oz Intake: IVPB 100 350 100 Tube Feeding 497 71 781 Tube Irrigant 322 100 552 Output: Urine 300 Void 300 Other: Voiding Method Diaper Incontinent # Unmeasured Voids Void 2 1 Bowel Movement No # Bowel Movements 1 Weight Measurement Method [facility] Active Medications Acetaminophen (Tylenol -) 650 mg PO Q6H PRN PRN Reason: FEVER OR PAIN Last Admin: 03/29/17 12:26 Dose: 650 mg Acyclovir (Zovirax -) 200 mg PO BID [facility] Last Admin: 03/29/17 23:12 Dose: 200 mg Albuterol Sulfate (Ventolin 0.083% Nebulizer Soln -) 1 amp NEB Q4H PRN PRN Reason: SHORT OF BREATH/WHEEZING Last Admin: 03/26/17 15:00 Dose: 1 amp Albuterol/Ipratropium (Duoneb -) 1 amp NEB TIDR [facility] Last Admin: 03/30/17 05:43 Dose: 1 amp Aspirin (Asa -) 81 mg PO DAILY [facility] Last Admin: 03/29/17 11:53 Dose: 81 mg Clotrimazole (Lotrisone Cream (Small Tube)) 1 applic TP BID [facility] Folic Acid (Folic Acid -) 1 mg PO DAILY [facility] Last Admin: 03/29/17 11:53 Dose: 1 mg Furosemide (Lasix Injection -) 40 mg IVPUSH DAILY [facility] Last Admin: 03/29/17 11:54 Dose: 40 mg Gabapentin (Neurontin -) 200 mg PO TID [facility] Last Admin: 03/30/17 05:28 Dose: 200 mg Heparin Sodium (Porcine) (Heparin -) 5,000 unit SQ BID [facility] Last Admin: 03/29/17 23:09 Dose: 5,000 unit Metronidazole (Flagyl 500mg Premixed Ivpb -) 100 mls @ 100 mls/hr IVPB Q8H-IV [facility] Last Admin: 03/30/17 02:17 Dose: 100 mls/hr Ceftriaxone Sodium 2 gm/ (Dextrose) 100 mls @ 200 mls/hr IVPB DAILY [facility] Last Admin: 03/29/17 11:55 Dose: 200 mls/hr Levetiracetam (Keppra Oral Solution -) 750 mg PO BID [facility] Last Admin: 03/29/17 23:12 Dose: 750 mg Magnesium Oxide (Mag-Ox -) 400 mg PO DAILY [facility] Last Admin: 03/29/17 11:54 Dose: 400 mg Non-Formulary Medication (Tizanidine Hcl [Tizanidine Hcl]) 4 mg PO Q8H PRN PRN Reason: MUSCLE SPASMS/PAIN Last Admin: 03/25/17 16:52 Dose: 4 mg Oxycodone HCl (Oxycontin -) 30 mg PO BID [facility] Last Admin: 03/29/17 23:07 Dose: 30 mg Pantoprazole Sodium (Protonix -) 40 mg PO DAILY [facility] Last Admin: 03/29/17 11:54 Dose: 40 mg Ropinirole HCl (Requip -) 1 mg PO DAILY [facility] Last Admin: 03/29/17 11:54 Dose: 1 mg CBC, BMP 03/29/17 10:15 03/29/17 10:15 Echo - Noted. Ct Chest - Pending. Physical exam Constitutional: Yes: No Distress, weak and cachectic. awake Eyes: Yes: Conjunctiva Clear Cardiovascular: Yes: Regular Rate and Rhythm, S1, S2 Respiratory: Yes: Diminished-- L>r Gastrointestinal: Yes: Normal Bowel Sounds, Soft. No: Tenderness Edema: No Neuro- awake Assessment and plan Likely aspiration pneumonia Atelectasis Continue present care npo Continue Lasix Overall condition poor. Will follow discussed with . Problem List - Problems (1) Alcohol dependence with uncomplicated withdrawal Code(s): F10.230 - ALCOHOL DEPENDENCE WITH WITHDRAWAL, UNCOMPLICATED (2) Dyspnea Code(s): R06.00 - DYSPNEA, UNSPECIFIED Qualifiers: Dyspnea type: shortness of breath Qualified Code(s): R06.02 - Shortness of breath; R06.00 - Dyspnea, unspecified; R06.01 - Orthopnea (3) Lung cancer Code(s): C34.90 - MALIGNANT NEOPLASM OF UNSP PART OF UNSP BRONCHUS OR LUNG (4) Restless leg Code(s): G25.81 - RESTLESS LEGS SYNDROME (5) Seizure Code(s): R56.9 - UNSPECIFIED CONVULSIONS (6) COPD with exacerbation Code(s): J44.1 - CHRONIC OBSTRUCTIVE PULMONARY DISEASE W (ACUTE) EXACERBATION (7) History of throat cancer Code(s): Z85.819 - PRSNL HX OF MALIG NEOPLM OF UNSP SITE LIP,ORAL CAV,& PHARYNX
[2017-03-30] MEDS: PANTOPRAZOLE 40 MG TABLET (FP) PO SCH (10:46)
[2017-03-30] MEDS: oxyCODONE HCL 10 MG SUSTAINED ACTING TABLET PO SCH (10:46)
[2017-03-30] MEDS: FUROSEMIDE 40 MG/4 ML INJECTABLE VIAL IVPUSH SCH (10:46)
[2017-03-30] MEDS: ASPIRIN 81 MG CHEWABLE TABLETS PO SCH (10:46)
[2017-03-30] MEDS: MAGNESIUM OXIDE 400 MG TABLET (FP) PO SCH (10:46)
[2017-03-30] MEDS: HEPARIN NA (PORCINE) 5,000 UNITS/ML 1ML VIAL SQ SCH (10:46)
[2017-03-30] MEDS: FOLIC ACID 1 MG TABLET (FP) PO SCH (10:46)
[2017-03-30] MEDS: CEFTRIAXONE 2 GM in DEXTROSE 5%-WATER 100 ML IVPB SCH (10:48)
[2017-03-30] MEDS: rOPINIRole HCL 1 MG TABLET (FP) PO SCH (10:50)
[2017-03-30] MEDS: levETIRAcetam 500 MG/5 ML ORAL SOLUTION (UNIT-DOSE CUPS) PO SCH ×2 (10:50→22:23)
[2017-03-30] MEDS: ACYCLOVIR 200 MG CAPSULE PO SCH ×2 (10:51→22:23)
--- NOTE | 2017-03-30 12:09 | PN ---
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 (short form) - Note 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: PULMONARY NO OVERALL CHANGE IN EXAM SEE CONSULT FROM 03/[address] CHEST HAVE ORDERED PORTABLE CXR THIS AM 66 MALE WITH LARYNGEAL CA S/P CHEMOTX/RT HAS CHRONIC PEG ALSO ACTIVE SMOKER AND ETOHISM. CAD S/P PCI LEFT LOWER LOBECTOMY SECONDARY TO LUNG CANCER NO ADJUVANT TREATMENT AT THAT TIME 2007 SZ/ETOHISM/ACTIVE SMOKER H/O UTI/PEG NOW WITH PROGRESSIVE OPACIFICATION OF LEFT HEMITHORAX LIKELY DUE TO PNEUMONIA/ATELECTASIS AWAITING CT CHEST NO CONTRAST BRONCHODILATORS/CHEST PT AGREE WITH ANTIBIOTICS MAY NEED BRONCHOSCOPY WHICH MAY BE DIFFICULT IN VIEW OF H/O LARYNGEAL CA CHECK CXR ORDERED THIS DYLAN VITALE MD
[2017-03-30] MEDS: CLOTRIMAZOLE/BETAMET DIPROP 15 GM TUBE TP SCH ×2 (13:06→22:27)
[2017-03-30] MEDS: ACETAMINOPHEN 325 MG TABLET (FP) PO PRN (20:12)
[2017-03-30] MEDS ORDERED: PT OWN MED DRAWER 7, Y5N ONE (21:48)
--- NOTE | 2017-03-31 02:31 | HOSP ---
Physical Examination Vital Signs: Vital Signs Temperature 98.1 F 03/30/17 22:00 Pulse Rate 88 03/30/17 22:00 Respiratory Rate 18 03/30/17 22:00 Blood Pressure 146/80 03/30/17 22:00 O2 Sat by Pulse Oximetry (%) 96 03/29/17 21:00 Labs: CBC, [facility] 03/29/17 10:15 03/29/17 10:15 Hospitalist Encounter Assessment: CBC, [facility] 03/29/17 10:15 03/29/17 10:15 I was called by the nurse to evaluate the patient because he pull his PEG tube out . Patient Seems confused with halucination He is AAOx2 time and place. catchetic Head NC /At Lung clear to auscultations B/L Heart N S1 S2 , no MRG Abdomen soft non distended, non tender Legs No edema Luong was inserted temporarilyin the PEG lumen . Follow up in AM . Visit type - Emergency Visit Emergency Visit: No - New Patient This patient is new to me today: Yes Date on this admission: 03/31/17 - Critical Care Critical Care patient: No
[2017-03-31] MEDS: GABAPENTIN 100 MG CAPSULE (FP) PO SCH ×3 (05:42→21:50)
[2017-03-31] MEDS: ALBUTEROL SO4 2.5/IPRATROPIUM 0.5 INH SOL 3 ML VIAL.NEB. NEB SCH ×3 (06:00→21:25)
[2017-03-31] MEDS ORDERED: DEXTROSE 5%-WATER 100 ML IVPB ONE (10:15)
[2017-03-31] MEDS: CEFTRIAXONE 2 GM in DEXTROSE 5%-WATER 100 ML IVPB SCH (10:19)
[2017-03-31] MEDS: FUROSEMIDE 40 MG/4 ML INJECTABLE VIAL IVPUSH SCH (10:19)
--- NOTE | 2017-03-31 11:43 | PN ---
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 (short form) - Note 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: PULMONARY NO OVERALL CHANGE IN EXAM OOB TO CHAIR CT CHEST REVEALS COMPLETE OPACIFICATION LEFT LUNG 66 MALE WITH LARYNGEAL CA S/P CHEMOTX/RT HAS CHRONIC PEG ALSO ACTIVE SMOKER AND ETOHISM. CAD S/P PCI LEFT LOWER LOBECTOMY SECONDARY TO LUNG CANCER NO ADJUVANT TREATMENT AT THAT TIME 2007 SZ/ETOHISM/ACTIVE SMOKER H/O UTI/PEG VSS/AFEBRILE PALE DIMINISHED BREATH SOUNDS LEFT S1S2 BS+ NO EDEMA LABS/MEDS/NOTES/IMAGING NOW WITH PROGRESSIVE OPACIFICATION OF LEFT HEMITHORAX LIKELY DUE TO ASPIRATION PNEUMONIA/ATELECTASIS/EFFUSION NEEDS BRONCHOSCOPIC EVALUATION BRONCHODILATORS/CHEST PT AGREE WITH ANTIBIOTICS WILL DISCUSS CASE WITH DR AMBROSIO VITALE MD
[2017-03-31] MEDS: levETIRAcetam 500 MG/5 ML ORAL SOLUTION (UNIT-DOSE CUPS) PO SCH ×2 (14:18→21:51)
--- NOTE | 2017-03-31 15:11 | PN ---
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 (short form) - Note 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: Overall condition same. pulled g tube again last night replaced-- discussed with Dr. Manjarrez earlier today Binder ordered confused . pulmonary f/u noted/. Vital Signs Temp 98.4 F 03/31/17 14:02 Pulse 74 03/31/17 14:09 Resp 16 03/31/17 14:02 BP 121/71 03/31/17 14:02 Pulse Ox 95 03/31/17 14:09 Intake & Output 03/30/17 03/31/17 03/31/17 23:59 11:59 23:59 Intake Total 678 348 150 Balance 678 348 150 Weight 128 lb 3.2 oz Intake: IVPB 100 Oral 150 Tube Feeding 354 210 Tube Irrigant 224 138 Other: Voiding Method Diaper Diaper # Unmeasured Voids Void 2 1 2 Bowel Movement Yes Yes # Bowel Movements 4 2 Weight Measurement Method Built in [facility] Active Medications Acetaminophen (Tylenol -) 650 mg PO Q6H PRN PRN Reason: FEVER OR PAIN Last Admin: 03/30/17 20:12 Dose: 650 mg Acyclovir (Zovirax -) 200 mg PO BID [facility] Last Admin: 03/30/17 22:23 Dose: 200 mg Albuterol/Ipratropium (Duoneb -) 1 amp NEB TIDR [facility] Last Admin: 03/31/17 14:10 Dose: 1 amp Aspirin (Asa -) 81 mg PO DAILY [facility] Last Admin: 03/30/17 10:46 Dose: 81 mg Clotrimazole (Lotrisone Cream (Small Tube)) 1 applic TP BID [facility] Last Admin: 03/30/17 22:27 Dose: 1 applic Folic Acid (Folic Acid -) 1 mg PO DAILY [facility] Last Admin: 03/30/17 10:46 Dose: 1 mg Furosemide (Lasix Injection -) 40 mg IVPUSH DAILY [facility] Last Admin: 03/31/17 10:19 Dose: 40 mg Gabapentin (Neurontin -) 200 mg PO TID [facility] Last Admin: 03/31/17 05:42 Dose: Not Given Ceftriaxone Sodium 2 gm/ (Dextrose) 100 mls @ 200 mls/hr IVPB DAILY [facility] Last Admin: 03/31/17 10:19 Dose: 200 mls/hr Levetiracetam (Keppra Oral Solution -) 750 mg PO BID [facility] Last Admin: 03/31/17 14:18 Dose: Not Given Magnesium Oxide (Mag-Ox -) 400 mg PO DAILY [facility] Last Admin: 03/30/17 10:46 Dose: 400 mg Non-Formulary Medication (Tizanidine Hcl [Tizanidine Hcl]) 4 mg PO Q8H PRN PRN Reason: MUSCLE SPASMS/PAIN Last Admin: 03/25/17 16:52 Dose: 4 mg Pantoprazole Sodium (Protonix -) 40 mg PO DAILY [facility] Last Admin: 03/30/17 10:46 Dose: 40 mg Ropinirole HCl (Requip -) 1 mg PO DAILY [facility] Last Admin: 03/30/17 10:50 Dose: 1 mg CBC, BMP 03/29/17 10:15 03/29/17 10:15 ct chest-- noted -- left side complete opacification Physical exam Constitutional: Yes: No Distress, weak/ cachectic. Eyes: Yes: Conjunctiva Clear Cardiovascular: Yes: Regular Rate and Rhythm, S1, S2 Respiratory: Yes: Diminished-- L>r Gastrointestinal: Yes: Normal Bowel Sounds, Soft. No: Tenderness Edema: No Neuro- awake Assessment and plan Likely aspiration pneumonia Atelectasis Continue present care npo Continue Lasix Overall condition poor. bronch ? will be difficult due to laryngeal ca. Will follow Problem List - Problems (1) Alcohol dependence with uncomplicated withdrawal Code(s): F10.230 - ALCOHOL DEPENDENCE WITH WITHDRAWAL, UNCOMPLICATED (2) Dyspnea Code(s): R06.00 - DYSPNEA, UNSPECIFIED Qualifiers: Dyspnea type: shortness of breath Qualified Code(s): R06.02 - Shortness of breath; R06.02 - Shortness of breath; R06.00 - Dyspnea, unspecified ; R06.01 - Orthopnea (3) Lung cancer Code(s): C34.90 - MALIGNANT NEOPLASM OF UNSP PART OF UNSP BRONCHUS OR LUNG (4) Restless leg Code(s): G25.81 - RESTLESS LEGS SYNDROME (5) Seizure Code(s): R56.9 - UNSPECIFIED CONVULSIONS (6) COPD with exacerbation Code(s): J44.1 - CHRONIC OBSTRUCTIVE PULMONARY DISEASE W (ACUTE) EXACERBATION (7) History of throat cancer Code(s): Z85.819 - PRSNL HX OF MALIG NEOPLM OF UNSP SITE LIP,ORAL CAV,& PHARYNX
[2017-03-31] MEDS: ACYCLOVIR 200 MG CAPSULE PO SCH ×2 (15:47→21:51)
[2017-03-31] MEDS: FOLIC ACID 1 MG TABLET (FP) PO SCH (15:47)
[2017-03-31] MEDS: PANTOPRAZOLE 40 MG TABLET (FP) PO SCH (15:47)
[2017-03-31] MEDS: MAGNESIUM OXIDE 400 MG TABLET (FP) PO SCH (15:47)
[2017-03-31] MEDS: ASPIRIN 81 MG CHEWABLE TABLETS PO SCH (15:47)
[2017-03-31] MEDS: CLOTRIMAZOLE/BETAMET DIPROP 15 GM TUBE TP SCH ×2 (15:47→21:51)
[2017-03-31] MEDS: rOPINIRole HCL 1 MG TABLET (FP) PO SCH (15:47)
[2017-03-31] MEDS ORDERED: PT OWN MED DRAWER 7, Y5N ONE (20:54)
[2017-04-01] MEDS: GABAPENTIN 100 MG CAPSULE (FP) PO SCH ×2 (05:45→16:19)
[2017-04-01] MEDS: ALBUTEROL SO4 2.5/IPRATROPIUM 0.5 INH SOL 3 ML VIAL.NEB. NEB SCH ×3 (06:22→22:11)
[2017-04-01] MEDS ORDERED: PT OWN MED DRAWER 7, Y5N ONE ×2 (10:56→22:34)
[2017-04-01] MEDS ORDERED: DEXTROSE 5%-WATER 100 ML IVPB ONE (10:57)
[2017-04-01] MEDS: PANTOPRAZOLE 40 MG TABLET (FP) PO SCH (10:58)
[2017-04-01] MEDS: MAGNESIUM OXIDE 400 MG TABLET (FP) PO SCH (10:58)
[2017-04-01] MEDS: ASPIRIN 81 MG CHEWABLE TABLETS PO SCH (10:58)
[2017-04-01] MEDS: FOLIC ACID 1 MG TABLET (FP) PO SCH (10:58)
[2017-04-01] MEDS: FUROSEMIDE 40 MG/4 ML INJECTABLE VIAL IVPUSH SCH (10:58)
[2017-04-01] MEDS: levETIRAcetam 500 MG/5 ML ORAL SOLUTION (UNIT-DOSE CUPS) PO SCH (10:58)
[2017-04-01] MEDS: CEFTRIAXONE 2 GM in DEXTROSE 5%-WATER 100 ML IVPB SCH (10:58)
[2017-04-01] MEDS: ACYCLOVIR 200 MG CAPSULE PO SCH (11:00)
[2017-04-01] MEDS: rOPINIRole HCL 1 MG TABLET (FP) PO SCH (11:00)
[2017-04-01] MEDS: CLOTRIMAZOLE/BETAMET DIPROP 15 GM TUBE TP SCH ×2 (11:00→22:42)
--- NOTE | 2017-04-01 13:27 | PN ---
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, Physician History of Present Illness: OOB in chair No complaints Breathing non-labored on nasal cannula Afebrile WBC improved - Current Medication List Current Medications: Active Medications Acetaminophen (Tylenol -) 650 mg PO Q6H PRN PRN Reason: FEVER OR PAIN Last Admin: 03/30/17 20:12 Dose: 650 mg Acyclovir (Zovirax -) 200 mg PO BID [facility] Last Admin: 04/01/17 11:00 Dose: 200 mg Albuterol/Ipratropium (Duoneb -) 1 amp NEB TIDR [facility] Last Admin: 04/01/17 06:22 Dose: 1 amp Aspirin (Asa -) 81 mg PO DAILY [facility] Last Admin: 04/01/17 10:58 Dose: 81 mg Clotrimazole (Lotrisone Cream (Small Tube)) 1 applic TP BID [facility] Last Admin: 04/01/17 11:00 Dose: 1 applic Folic Acid (Folic Acid -) 1 mg PO DAILY [facility] Last Admin: 04/01/17 10:58 Dose: 1 mg Furosemide (Lasix Injection -) 40 mg IVPUSH DAILY [facility] Last Admin: 04/01/17 10:58 Dose: 40 mg Gabapentin (Neurontin -) 200 mg PO TID [facility] Last Admin: 04/01/17 05:45 Dose: Not Given Ceftriaxone Sodium 2 gm/ (Dextrose) 100 mls @ 200 mls/hr IVPB DAILY [facility] Last Admin: 04/01/17 10:58 Dose: 200 mls/hr Levetiracetam (Keppra Oral Solution -) 750 mg PO BID [facility] Last Admin: 04/01/17 10:58 Dose: 750 mg Magnesium Oxide (Mag-Ox -) 400 mg PO DAILY [facility] Last Admin: 04/01/17 10:58 Dose: 400 mg Non-Formulary Medication (Tizanidine Hcl [Tizanidine Hcl]) 4 mg PO Q8H PRN PRN Reason: MUSCLE SPASMS/PAIN Last Admin: 03/25/17 16:52 Dose: 4 mg Pantoprazole Sodium (Protonix -) 40 mg PO DAILY [facility] Last Admin: 04/01/17 10:58 Dose: 40 mg Ropinirole HCl (Requip -) 1 mg PO DAILY [facility] Last Admin: 04/01/17 11:00 Dose: 1 mg - Objective Vital Signs: Vital Signs Temperature 98.2 F 04/01/17 06:00 Pulse Rate 81 04/01/17 10:22 Respiratory Rate 18 04/01/17 06:00 Blood Pressure 152/83 04/01/17 06:00 O2 Sat by Pulse Oximetry (%) 90 L 04/01/17 10:22 Constitutional: Yes: No Distress, Cachectic Eyes: Yes: Conjunctiva Clear Cardiovascular: Yes: Regular Rate and Rhythm, S1, S2 Respiratory: Yes: Diminished Gastrointestinal: Yes: Normal Bowel Sounds, Soft. No: Tenderness Labs: CBC, BMP 03/29/17 10:15 03/29/17 10:15 INR, PTT INR 1.02 (0.82-1.09) 03/17/17 07:30 Assessment/Plan LLL pneumonia / atelectasis effusion R effusion Fever/ leukocytosis improved Laryngeal ca S/P RT Continue empiric ceftriaxone / flagyl
--- NOTE | 2017-04-01 14:16 | CONSULT ---
Consult - text type - Consultation Consultation Note: Thoracic Surgery Consult: 66M smoker with h/o ETOH abuse, throat cancer s/p chemo/RT, PEG, lung cancer s/ p lobectomy (appears to be LLL), p/w increased secretions opacification of left chest. He has not had fevers but does have dyspnea. + weight loss. WBC mildly elevated. Being treated for PNA. Consult for possible bronchoscopy or possible vats for empyema. PE: HD stable Chest, decreased bs left, rhonchi, poor cough, left thor scar PEG in place Imp/Plan: PNA, possible parapneumonic effusion -Agree with plan for bronch, culture, r/o endobronchial lesions -Poor operative candidate as inability to clear secretions would only get worse after surgery, but will follow. Would lean towards IR drain due to inability to comply with postoperative chest physiotherapy. I have spent 40 minutes on this consultation including history, physical, review of CT and old CT's and >50% in counseling and coordination of care.
--- NOTE | 2017-04-01 14:54 | PN ---
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 (short form) - Note 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: Refusing intervention. He is awake and alert, and seems appropriate. Denies CP or SOB. Intake & Output 03/29/17 03/30/17 03/31/17 04/01/17 23:59 23:59 23:59 23:59 Intake Total 1440 2111 598 Output Total 300 310 Balance 1140 2111 288 Weight 138 lb 9.6 oz 128 lb 3.2 oz 129 lb Last Vital Signs Temp Pulse Resp BP Pulse Ox 97.7 F 78 18 141/75 90 L 04/01/17 13:54 04/01/17 13:54 04/01/17 13:54 04/01/17 13:54 04/01/17 10:22 Active Medications Acetaminophen (Tylenol -) 650 mg PO Q6H PRN PRN Reason: FEVER OR PAIN Last Admin: 03/30/17 20:12 Dose: 650 mg Acyclovir (Zovirax -) 200 mg PO BID [facility] Last Admin: 04/01/17 11:00 Dose: 200 mg Albuterol/Ipratropium (Duoneb -) 1 amp NEB TIDR [facility] Last Admin: 04/01/17 13:55 Dose: 1 amp Aspirin (Asa -) 81 mg PO DAILY [facility] Last Admin: 04/01/17 10:58 Dose: 81 mg Clotrimazole (Lotrisone Cream (Small Tube)) 1 applic TP BID [facility] Last Admin: 04/01/17 11:00 Dose: 1 applic Folic Acid (Folic Acid -) 1 mg PO DAILY [facility] Last Admin: 04/01/17 10:58 Dose: 1 mg Furosemide (Lasix Injection -) 40 mg IVPUSH DAILY [facility] Last Admin: 04/01/17 10:58 Dose: 40 mg Gabapentin (Neurontin -) 200 mg PO TID [facility] Last Admin: 04/01/17 05:45 Dose: Not Given Ceftriaxone Sodium 2 gm/ (Dextrose) 100 mls @ 200 mls/hr IVPB DAILY [facility] Last Admin: 04/01/17 10:58 Dose: 200 mls/hr Levetiracetam (Keppra Oral Solution -) 750 mg PO BID [facility] Last Admin: 04/01/17 10:58 Dose: 750 mg Magnesium Oxide (Mag-Ox -) 400 mg PO DAILY [facility] Last Admin: 04/01/17 10:58 Dose: 400 mg Non-Formulary Medication (Tizanidine Hcl [Tizanidine Hcl]) 4 mg PO Q8H PRN PRN Reason: MUSCLE SPASMS/PAIN Last Admin: 03/25/17 16:52 Dose: 4 mg Pantoprazole Sodium (Protonix -) 40 mg PO DAILY [facility] Last Admin: 04/01/17 10:58 Dose: 40 mg Ropinirole HCl (Requip -) 1 mg PO DAILY [facility] Last Admin: 04/01/17 11:00 Dose: 1 mg Constitutional: Yes: No Distress, weak/ cachectic. Eyes: Yes: Conjunctiva Clear Cardiovascular: Yes: Regular Rate and Rhythm, S1, S2 Respiratory: Yes: Diminished-- L>r Gastrointestinal: Yes: Normal Bowel Sounds, Soft. No: Tenderness Edema: No Neuro- Non-focal Problem List - Problems (1) Alcohol dependence with uncomplicated withdrawal Code(s): F10.230 - ALCOHOL DEPENDENCE WITH WITHDRAWAL, UNCOMPLICATED (2) Dyspnea Code(s): R06.00 - DYSPNEA, UNSPECIFIED Qualifiers: Dyspnea type: shortness of breath Qualified Code(s): R06.02 - Shortness of breath; R06.02 - Shortness of breath; R06.00 - Dyspnea, unspecified ; R06.01 - Orthopnea (3) Lung cancer Code(s): C34.90 - MALIGNANT NEOPLASM OF UNSP PART OF UNSP BRONCHUS OR LUNG (4) Restless leg Code(s): G25.81 - RESTLESS LEGS SYNDROME (5) Seizure Code(s): R56.9 - UNSPECIFIED CONVULSIONS (6) COPD with exacerbation Code(s): J44.1 - CHRONIC OBSTRUCTIVE PULMONARY DISEASE W (ACUTE) EXACERBATION (7) History of throat cancer Code(s): Z85.819 - PRSNL HX OF MALIG NEOPLM OF UNSP SITE LIP,ORAL CAV,& PHARYNX Continue present care Keep NPO Continue Lasix Overall condition poor. Consideration for bronchoscopy is being made. Risk benefits to discussed with the patient's Dr Baird
--- NOTE | 2017-04-01 15:13 | PN ---
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, G[employer]IENCE [employer]IST - Note 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: Tongue clear. No coating noted. Pt has been NPO /GT feedings pending improved pulmonary status. Suction PRN/ elevate HOB/Mouth care. MBS (-) aspiration with normal swallowing function. Pt with coughing during PO intake when lethargic last week. Aspiration? Case reviewed with Pulmonary. Multifactorial-Possible particulate matter/tumor/ mucous plug Bronchoscopy being considered. Continue NPO until aspiration ruled out. Pt is a full code.If aspiration is r/o,pleasure feeds may be considered. Pt was drinking ETOH at home before admission.
[2017-04-01] MEDS ORDERED: ACETAMINOPHEN 650 MG/20.3 ML ORAL SOLUTION (CUPS) PO PRN (19:35)
--- NOTE | 2017-04-01 19:57 | PN ---
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 (short form) - Note 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: Pt seen/ examined earlier today. was sitting in chair alert and awake today-- not confused refused bronch today. wants to go home. Vital Signs Temp 98.2 F 04/01/17 16:20 Pulse 86 04/01/17 16:20 Resp 20 04/01/17 16:20 BP 122/68 04/01/17 16:20 Pulse Ox 90 L 04/01/17 10:22 Intake & Output 03/31/17 04/01/17 04/01/17 23:59 11:59 23:59 Intake Total 250 50 Output Total 310 Balance -60 50 Weight 129 lb Intake: IVPB 100 50 Oral 150 Output: Urine 310 Void 310 Other: Voiding Method Incontinent Incontinent Diaper # Unmeasured Voids Void 1 Bowel Movement Yes Yes Yes # Bowel Movements 2 Weight Measurement Method [facility] Active Medications Acetaminophen (Tylenol Oral Solution -) 650 mg PO Q6H PRN PRN Reason: FEVER OR PAIN Acyclovir (Zovirax -) 200 mg PEG BID [facility] Albuterol/Ipratropium (Duoneb -) 1 amp NEB TIDR [facility] Last Admin: 04/01/17 13:55 Dose: 1 amp Aspirin (Asa -) 81 mg PEG DAILY [facility] Clotrimazole (Lotrisone Cream (Small Tube)) 1 applic TP BID [facility] Last Admin: 04/01/17 11:00 Dose: 1 applic Folic Acid (Folic Acid -) 1 mg PEG DAILY [facility] Furosemide (Lasix Injection -) 40 mg IVPUSH DAILY [facility] Last Admin: 04/01/17 10:58 Dose: 40 mg Gabapentin (Neurontin Oral Liquid -) 200 mg PO TID [facility] Ceftriaxone Sodium 2 gm/ (Dextrose) 100 mls @ 200 mls/hr IVPB DAILY [facility] Last Admin: 04/01/17 10:58 Dose: 200 mls/hr Levetiracetam (Keppra Oral Solution -) 750 mg PEG BID [facility] Magnesium Oxide (Mag-Ox -) 400 mg PEG DAILY [facility] Non-Formulary Medication (Tizanidine Hcl [Tizanidine Hcl]) 4 mg PO Q8H PRN PRN Reason: MUSCLE SPASMS/PAIN Last Admin: 03/25/17 16:52 Dose: 4 mg Pantoprazole Sodium (Protonix Packets For Oral Suspension -) 40 mg PEG DAILY [facility] Ropinirole HCl (Requip -) 1 mg NR DAILY [facility] CBC, BMP 03/29/17 10:15 03/29/17 10:15 Physical exam Constitutional: Yes: No Distress, weak/cachectic Eyes: Yes: Conjunctiva Clear Cardiovascular: Yes: Regular Rate and Rhythm, S1, S2 Respiratory: Yes: Diminished-- L>r Gastrointestinal: Yes: Normal Bowel Sounds, Soft. No: Tenderness Edema: No Neuro- alert and awake today Assessment and plan Likely aspiration pneumonia Atelectasis Continue present care npo Continue Lasix refused bronch Discussed with also today. will discuss with also. will follow. Problem List - Problems (1) Alcohol dependence with uncomplicated withdrawal Code(s): F10.230 - ALCOHOL DEPENDENCE WITH WITHDRAWAL, UNCOMPLICATED (2) Dyspnea Code(s): R06.00 - DYSPNEA, UNSPECIFIED Qualifiers: Dyspnea type: shortness of breath Qualified Code(s): R06.02 - Shortness of breath; R06.02 - Shortness of breath; R06.00 - Dyspnea, unspecified ; R06.01 - Orthopnea (3) Lung cancer Code(s): C34.90 - MALIGNANT NEOPLASM OF UNSP PART OF UNSP BRONCHUS OR LUNG (4) Restless leg Code(s): G25.81 - RESTLESS LEGS SYNDROME (5) Seizure Code(s): R56.9 - UNSPECIFIED CONVULSIONS (6) COPD with exacerbation Code(s): J44.1 - CHRONIC OBSTRUCTIVE PULMONARY DISEASE W (ACUTE) EXACERBATION (7) History of throat cancer Code(s): Z85.819 - PRSNL HX OF MALIG NEOPLM OF UNSP SITE LIP,ORAL CAV,& PHARYNX
[2017-04-01] MEDS: levETIRAcetam 500 MG/5 ML ORAL SOLUTION (UNIT-DOSE CUPS) PEG SCH (22:42)
[2017-04-01] MEDS: GABAPENTIN 250 MG/5 ML ORAL SOLUTION, 470 ML BOTTLE PO SCH (22:42)
[2017-04-01] MEDS: ACYCLOVIR 200 MG CAPSULE PEG SCH (22:42)
[2017-04-02] MEDS ORDERED: PT OWN MED DRAWER 7, Y5N ONE ×4 (05:42→21:17)
[2017-04-02] MEDS: GABAPENTIN 250 MG/5 ML ORAL SOLUTION, 470 ML BOTTLE PO SCH (05:56)
[2017-04-02] MEDS: ALBUTEROL SO4 2.5/IPRATROPIUM 0.5 INH SOL 3 ML VIAL.NEB. NEB SCH ×3 (06:09→23:00)
[2017-04-02] MEDS ORDERED: DEXTROSE 5%-WATER 100 ML IVPB ONE (09:26)
--- NOTE | 2017-04-02 09:34 | PN ---
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, Physician Chief Complaint: pt wants to go home still NPO GT feeds ongoing no SOB has cough - Current Medication List Current Medications: Active Medications Acetaminophen (Tylenol Oral Solution -) 650 mg PEG Q6H PRN PRN Reason: FEVER OR PAIN Acyclovir (Zovirax -) 200 mg PEG BID [facility] Last Admin: 04/01/17 22:42 Dose: 200 mg Albuterol/Ipratropium (Duoneb -) 1 amp NEB TIDR [facility] Last Admin: 04/02/17 06:09 Dose: 1 amp Aspirin (Asa -) 81 mg PEG DAILY [facility] Clotrimazole (Lotrisone Cream (Small Tube)) 1 applic TP BID [facility] Last Admin: 04/01/17 22:42 Dose: 1 applic Folic Acid (Folic Acid -) 1 mg PEG DAILY [facility] Furosemide (Lasix Injection -) 40 mg IVPUSH DAILY [facility] Last Admin: 04/01/17 10:58 Dose: 40 mg Gabapentin (Neurontin Oral Liquid -) 200 mg PEG TID [facility] Ceftriaxone Sodium 2 gm/ (Dextrose) 100 mls @ 200 mls/hr IVPB DAILY [facility] Last Admin: 04/01/17 10:58 Dose: 200 mls/hr Levetiracetam (Keppra Oral Solution -) 750 mg PEG BID [facility] Last Admin: 04/01/17 22:42 Dose: 750 mg Magnesium Oxide (Mag-Ox -) 400 mg PEG DAILY [facility] Non-Formulary Medication (Tizanidine Hcl [Tizanidine Hcl]) 4 mg PO Q8H PRN PRN Reason: MUSCLE SPASMS/PAIN Last Admin: 03/25/17 16:52 Dose: 4 mg Pantoprazole Sodium (Protonix Packets For Oral Suspension -) 40 mg PEG DAILY [facility] Ropinirole HCl (Requip -) 1 mg NR DAILY [facility] - Objective Vital Signs: Vital Signs Temperature 97.9 F 04/02/17 06:35 Pulse Rate 76 04/02/17 06:35 Respiratory Rate 20 04/02/17 06:35 Blood Pressure 125/72 04/02/17 06:35 O2 Sat by Pulse Oximetry (%) 94 L 04/01/17 20:10 Constitutional: Yes: No Distress, Calm Cardiovascular: Yes: Regular Rate and Rhythm Respiratory: Yes: Diminished (left) Gastrointestinal: Yes: Normal Bowel Sounds, Soft, Other (peg+). No: Distention , Tenderness Edema: No Labs: CBC, BMP 03/29/17 10:15 03/29/17 10:15 INR, PTT INR 1.02 (0.82-1.09) 03/17/17 07:30 Problem List - Problems (1) Alcohol dependence with uncomplicated withdrawal Code(s): F10.230 - ALCOHOL DEPENDENCE WITH WITHDRAWAL, UNCOMPLICATED (2) COPD (chronic obstructive pulmonary disease) Code(s): J44.9 - CHRONIC OBSTRUCTIVE PULMONARY DISEASE, UNSPECIFIED (3) COPD with exacerbation Code(s): J44.1 - CHRONIC OBSTRUCTIVE PULMONARY DISEASE W (ACUTE) EXACERBATION (4) Confusion with non-focal neuro exam Code(s): R41.0 - DISORIENTATION, UNSPECIFIED (5) History of throat cancer Code(s): Z85.819 - PRSNL HX OF MALIG NEOPLM OF UNSP SITE LIP,ORAL CAV,& PHARYNX (6) Lung cancer, hilus Code(s): C34.00 - MALIGNANT NEOPLASM OF UNSPECIFIED MAIN BRONCHUS (7) Protein-calorie malnutrition, severe Code(s): E43 - UNSPECIFIED SEVERE PROTEIN-CALORIE MALNUTRITION Assessment/Plan PLAN afebrile pt has atelectasis left continue with chest PT, nebs, O2, incentive spirometer Off antibiotics Spoke with Pulmonary-- for bronchoscopy tomorrow at noon pt has finally agreed keep NPO
[2017-04-02] MEDS: levETIRAcetam 500 MG/5 ML ORAL SOLUTION (UNIT-DOSE CUPS) PEG SCH ×2 (09:49→21:42)
[2017-04-02] MEDS: FOLIC ACID 1 MG TABLET (FP) PEG SCH (09:49)
[2017-04-02] MEDS: ACYCLOVIR 200 MG CAPSULE PEG SCH ×2 (09:50→21:41)
[2017-04-02] MEDS: MAGNESIUM OXIDE 400 MG TABLET (FP) PEG SCH (09:50)
[2017-04-02] MEDS: rOPINIRole HCL 1 MG TABLET (FP) NR SCH (09:50)
[2017-04-02] MEDS: CEFTRIAXONE 2 GM in DEXTROSE 5%-WATER 100 ML IVPB SCH (09:50)
[2017-04-02] MEDS: CLOTRIMAZOLE/BETAMET DIPROP 15 GM TUBE TP SCH ×2 (09:50→21:42)
[2017-04-02] MEDS: FUROSEMIDE 40 MG/4 ML INJECTABLE VIAL IVPUSH SCH (09:50)
[2017-04-02] MEDS: ASPIRIN 81 MG CHEWABLE TABLETS PEG SCH (10:05)
--- NOTE | 2017-04-02 10:08 | PN ---
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 (short form) - Note 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: PULMONARY Refused bronchoscopy yesterday, enteral feeds running. Denies shortness of breath. +cough with clear sputum. No fevers or chills. Wants to go home. Last Vital Signs Temp Pulse Resp BP Pulse Ox 97.9 F 76 20 125/72 94 L 04/02/17 06:35 04/02/17 06:35 04/02/17 06:35 04/02/17 06:35 04/01/17 20:10 Gen: NAD at rest Heart: RRR Lung: decreased breath sounds left Abd: soft, nontender Ext: no edema CBC, BMP 03/29/17 10:15 03/29/17 10:15 Active Medications Acetaminophen (Tylenol Oral Solution -) 650 mg PEG Q6H PRN PRN Reason: FEVER OR PAIN Acyclovir (Zovirax -) 200 mg PEG BID [facility] Last Admin: 04/02/17 09:50 Dose: 200 mg Albuterol/Ipratropium (Duoneb -) 1 amp NEB TIDR [facility] Last Admin: 04/02/17 06:09 Dose: 1 amp Aspirin (Asa -) 81 mg PEG DAILY [facility] Last Admin: 04/02/17 10:05 Dose: 81 mg Clotrimazole (Lotrisone Cream (Small Tube)) 1 applic TP BID [facility] Last Admin: 04/02/17 09:50 Dose: 1 applic Folic Acid (Folic Acid -) 1 mg PEG DAILY [facility] Last Admin: 04/02/17 09:49 Dose: 1 mg Furosemide (Lasix Injection -) 40 mg IVPUSH DAILY [facility] Last Admin: 04/02/17 09:50 Dose: Not Given Gabapentin (Neurontin Oral Liquid -) 200 mg PEG TID [facility] Ceftriaxone Sodium 2 gm/ (Dextrose) 100 mls @ 200 mls/hr IVPB DAILY [facility] Last Admin: 04/02/17 09:50 Dose: 200 mls/hr Levetiracetam (Keppra Oral Solution -) 750 mg PEG BID [facility] Last Admin: 04/02/17 09:49 Dose: 750 mg Magnesium Oxide (Mag-Ox -) 400 mg PEG DAILY [facility] Last Admin: 04/02/17 09:50 Dose: 400 mg Non-Formulary Medication (Tizanidine Hcl [Tizanidine Hcl]) 4 mg PO Q8H PRN PRN Reason: MUSCLE SPASMS/PAIN Last Admin: 03/25/17 16:52 Dose: 4 mg Pantoprazole Sodium (Protonix Packets For Oral Suspension -) 40 mg PEG DAILY [facility] Ropinirole HCl (Requip -) 1 mg NR DAILY [facility] Last Admin: 04/02/17 09:50 Dose: 1 mg A/P Aspiration Pneumonia Left Atelectasis Acute COPD Exacerbation h/o Laryngeal Ca - continue antibiotics - inhaled bronchodilators - O2 to keep SpO2 >90% - scheduled for bronchoscopy at 12PM tomorrow if pt agrees - keep NPO after midnight including feeds
[2017-04-02] MEDS: PANTOPRAZOLE SOD 40 MG SUSPENSION PACKET PEG SCH (11:52)
--- NOTE | 2017-04-02 13:17 | PN ---
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, Physician History of Present Illness: Awake, alert No complaints Denies chest pain/ dyspnea + cough Pt suctioning secretions Afebrile - Current Medication List Current Medications: Active Medications Acetaminophen (Tylenol Oral Solution -) 650 mg PEG Q6H PRN PRN Reason: FEVER OR PAIN Acetylcysteine (Mucomyst 20 Oral / Inh Use Only*) 1,000 mg NEB ONCE ONE Stop: 04/03/17 12:01 Acyclovir (Zovirax -) 200 mg PEG BID [facility] Last Admin: 04/02/17 09:50 Dose: 200 mg Albuterol/Ipratropium (Duoneb -) 1 amp NEB TIDR [facility] Last Admin: 04/02/17 06:09 Dose: 1 amp Aspirin (Asa -) 81 mg PEG DAILY [facility] Last Admin: 04/02/17 10:05 Dose: 81 mg Clotrimazole (Lotrisone Cream (Small Tube)) 1 applic TP BID [facility] Last Admin: 04/02/17 09:50 Dose: 1 applic Folic Acid (Folic Acid -) 1 mg PEG DAILY [facility] Last Admin: 04/02/17 09:49 Dose: 1 mg Furosemide (Lasix Injection -) 40 mg IVPUSH DAILY [facility] Last Admin: 04/02/17 09:50 Dose: Not Given Gabapentin (Neurontin Oral Liquid -) 200 mg PEG TID [facility] Ceftriaxone Sodium 2 gm/ (Dextrose) 100 mls @ 200 mls/hr IVPB DAILY [facility] Last Admin: 04/02/17 09:50 Dose: 200 mls/hr Levetiracetam (Keppra Oral Solution -) 750 mg PEG BID [facility] Last Admin: 04/02/17 09:49 Dose: 750 mg Magnesium Oxide (Mag-Ox -) 400 mg PEG DAILY [facility] Last Admin: 04/02/17 09:50 Dose: 400 mg Non-Formulary Medication (Tizanidine Hcl [Tizanidine Hcl]) 4 mg PO Q8H PRN PRN Reason: MUSCLE SPASMS/PAIN Last Admin: 03/25/17 16:52 Dose: 4 mg Pantoprazole Sodium (Protonix Packets For Oral Suspension -) 40 mg PEG DAILY [facility] Last Admin: 04/02/17 11:52 Dose: 40 mg Ropinirole HCl (Requip -) 1 mg NR DAILY [facility] Last Admin: 04/02/17 09:50 Dose: 1 mg - Objective Vital Signs: Vital Signs Temperature 97.9 F 04/02/17 06:35 Pulse Rate 97 H 04/02/17 11:14 Respiratory Rate 20 04/02/17 06:35 Blood Pressure 125/72 04/02/17 06:35 O2 Sat by Pulse Oximetry (%) 95 04/02/17 11:14 Constitutional: Yes: No Distress, Cachectic Eyes: Yes: Conjunctiva Clear Cardiovascular: Yes: Regular Rate and Rhythm, S1, S2 Respiratory: Yes: Diminished Gastrointestinal: Yes: Normal Bowel Sounds, Soft. No: Tenderness Edema: No Labs: CBC, BMP 03/29/17 10:15 03/29/17 10:15 INR, PTT INR 1.02 (0.82-1.09) 03/17/17 07:30 Assessment/Plan LLL pneumonia / atelectasis effusion R effusion Fever/ leukocytosis improved Laryngeal ca S/P RT Continue empiric ceftriaxone / flagyl For bronchoscopy tomorrow
[2017-04-02] MEDS: METRONIDAZOLE 500 MG PREMIXED 100 ML IVPB SCH ×2 (15:06→18:08)
[2017-04-02] MEDS: GABAPENTIN 250 MG/5 ML ORAL SOLUTION, 470 ML BOTTLE PEG SCH ×2 (15:06→21:41)
[2017-04-02] MEDS: ACETAMINOPHEN 650 MG/20.3 ML ORAL SOLUTION (CUPS) PEG PRN (21:40)
[2017-04-03] MEDS ORDERED: DEXTROSE 5%-WATER 100 ML IVPB ONE ×3 (01:30→16:09)
[2017-04-03] MEDS: CEFTRIAXONE 2 GM in DEXTROSE 5%-WATER 100 ML IVPB SCH ×3 (01:42→18:28)
[2017-04-03] MEDS: METRONIDAZOLE 500 MG PREMIXED 100 ML IVPB SCH ×6 (01:43→23:55)
[2017-04-03] MEDS: ALBUTEROL SO4 2.5/IPRATROPIUM 0.5 INH SOL 3 ML VIAL.NEB. NEB SCH ×3 (06:10→23:20)
[2017-04-03] MEDS: GABAPENTIN 250 MG/5 ML ORAL SOLUTION, 470 ML BOTTLE PEG SCH ×3 (06:21→22:19)
--- NOTE | 2017-04-03 09:40 | PN ---
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, Physician Chief Complaint: febrile this AM no complaints wants to go home but willing to do bronchoscopy today - Current Medication List Current Medications: Active Medications Acetaminophen (Tylenol Oral Solution -) 650 mg PEG Q6H PRN PRN Reason: FEVER OR PAIN Last Admin: 04/02/17 21:40 Dose: 650 mg Acetylcysteine (Mucomyst 20 Oral / Inh Use Only*) 1,000 mg NEB ONCE ONE Stop: 04/03/17 12:01 Acyclovir (Zovirax -) 200 mg PEG BID [facility] Last Admin: 04/02/17 21:41 Dose: 200 mg Albuterol/Ipratropium (Duoneb -) 1 amp NEB TIDR [facility] Last Admin: 04/03/17 06:10 Dose: 1 amp Aspirin (Asa -) 81 mg PEG DAILY [facility] Last Admin: 04/02/17 10:05 Dose: 81 mg Clotrimazole (Lotrisone Cream (Small Tube)) 1 applic TP BID [facility] Last Admin: 04/02/17 21:42 Dose: 1 applic Folic Acid (Folic Acid -) 1 mg PEG DAILY [facility] Last Admin: 04/02/17 09:49 Dose: 1 mg Furosemide (Lasix Injection -) 40 mg IVPUSH DAILY [facility] Last Admin: 04/02/17 09:50 Dose: Not Given Gabapentin (Neurontin Oral Liquid -) 200 mg PEG TID [facility] Last Admin: 04/03/17 06:21 Dose: 200 mg Metronidazole (Flagyl 500mg Premixed Ivpb -) 100 mls @ 100 mls/hr IVPB Q8H-IV [facility] Last Admin: 04/03/17 01:43 Dose: 100 mls/hr Ceftriaxone Sodium 2 gm/ (Dextrose) 100 mls @ 200 mls/hr IVPB Q8H-IV [facility] Last Admin: 04/03/17 01:42 Dose: 200 mls/hr Levetiracetam (Keppra Oral Solution -) 750 mg PEG BID [facility] Last Admin: 04/02/17 21:42 Dose: 750 mg Magnesium Oxide (Mag-Ox -) 400 mg PEG DAILY [facility] Last Admin: 04/02/17 09:50 Dose: 400 mg Non-Formulary Medication (Tizanidine Hcl [Tizanidine Hcl]) 4 mg PO Q8H PRN PRN Reason: MUSCLE SPASMS/PAIN Last Admin: 03/25/17 16:52 Dose: 4 mg Pantoprazole Sodium (Protonix Packets For Oral Suspension -) 40 mg PEG DAILY [facility] Last Admin: 04/02/17 11:52 Dose: 40 mg Ropinirole HCl (Requip -) 1 mg NR DAILY [facility] Last Admin: 04/02/17 09:50 Dose: 1 mg - Objective Vital Signs: Vital Signs Temperature 98 F 04/03/17 06:45 Pulse Rate 93 H 04/03/17 06:45 Respiratory Rate 20 04/03/17 06:45 Blood Pressure 142/97 04/03/17 06:45 O2 Sat by Pulse Oximetry (%) 95 04/02/17 21:00 Constitutional: Yes: No Distress Cardiovascular: Yes: Regular Rate and Rhythm Respiratory: Yes: Diminished, Rhonchi Gastrointestinal: Yes: Soft, Hemorrhoids. No: Tenderness Edema: No Labs: CBC, BMP 03/29/17 10:15 03/29/17 10:15 INR, PTT INR 1.02 (0.82-1.09) 03/17/17 07:30 Problem List - Problems (1) Alcohol dependence with uncomplicated withdrawal Code(s): F10.230 - ALCOHOL DEPENDENCE WITH WITHDRAWAL, UNCOMPLICATED (2) COPD (chronic obstructive pulmonary disease) Code(s): J44.9 - CHRONIC OBSTRUCTIVE PULMONARY DISEASE, UNSPECIFIED (3) COPD with exacerbation Code(s): J44.1 - CHRONIC OBSTRUCTIVE PULMONARY DISEASE W (ACUTE) EXACERBATION (4) Confusion with non-focal neuro exam Code(s): R41.0 - DISORIENTATION, UNSPECIFIED (5) History of throat cancer Code(s): Z85.819 - PRSNL HX OF MALIG NEOPLM OF UNSP SITE LIP,ORAL CAV,& PHARYNX (6) Lung cancer, hilus Code(s): C34.00 - MALIGNANT NEOPLASM OF UNSPECIFIED MAIN BRONCHUS (7) Protein-calorie malnutrition, severe Code(s): E43 - UNSPECIFIED SEVERE PROTEIN-CALORIE MALNUTRITION Assessment/Plan PLAN febrile this AM continue with antibiotics likely fever due to atelectasis ?pneumona continue with chest PT, nebs, O2, incentive spirometer Spoke with Pulmonary-- for bronchoscopy today keep NPO
[2017-04-03] MEDS ORDERED: PT OWN MED DRAWER 7, Y5N ONE ×2 (09:51→16:09)
[2017-04-03] MEDS: ACETAMINOPHEN 650 MG/20.3 ML ORAL SOLUTION (CUPS) PEG PRN ×2 (10:06→22:27)
[2017-04-03] MEDS: FUROSEMIDE 40 MG/4 ML INJECTABLE VIAL IVPUSH SCH (10:11)
[2017-04-03] MEDS: levETIRAcetam 500 MG/5 ML ORAL SOLUTION (UNIT-DOSE CUPS) PEG SCH ×2 (10:13→22:19)
[2017-04-03] MEDS: FOLIC ACID 1 MG TABLET (FP) PEG SCH (10:14)
[2017-04-03] MEDS: MAGNESIUM OXIDE 400 MG TABLET (FP) PEG SCH (10:14)
[2017-04-03] MEDS: ACYCLOVIR 200 MG CAPSULE PEG SCH ×2 (10:15→22:28)
[2017-04-03] MEDS: PANTOPRAZOLE SOD 40 MG SUSPENSION PACKET PEG SCH (10:15)
[2017-04-03] MEDS: rOPINIRole HCL 1 MG TABLET (FP) NR SCH (10:15)
[2017-04-03] MEDS: ASPIRIN 81 MG CHEWABLE TABLETS PEG SCH (10:15)
[2017-04-03] MEDS: CLOTRIMAZOLE/BETAMET DIPROP 15 GM TUBE TP SCH ×2 (10:24→22:28)
[2017-04-03] MEDS ORDERED: PROPOFOL 20 ML ONE (10:52)
[2017-04-03] MEDS ORDERED: MIDAZOLAM HCL 2 MG/2 ML SINGLE DOSE VIAL ONE (10:52)
[2017-04-03] MEDS ORDERED: LIDOCAINE HCL/PF 2% SDV 5ML VIAL ONE (11:05)
[2017-04-03] MEDS ORDERED: LIDOCAINE HCL 4% TOPICAL SOLN (50 ML/BOTTLE) ONE (11:05)
[2017-04-03] MEDS ORDERED: LIDOCAINE HCL 2% (20ML MULTI-DOSE VIAL) NR ONE (11:08)
[2017-04-03] MEDS ORDERED: LIDOCAINE HCL 1%, 10 MG/ML (20ML VIAL) ONE (11:17)
[2017-04-03] MEDS ORDERED: ACETYLCYSTEINE 20% 200MG/ML 30 ML VIAL *FOR ORAL / INH USE ONLY NEB ONE (12:00)
[2017-04-03] MEDS ORDERED: ONDANSETRON 4 MG/2 ML VIAL IVPUSH PRN (12:03)
[2017-04-03] MEDS ORDERED: SODIUM CHLORIDE 1,000 ML IV SCH (12:15)
--- NOTE | 2017-04-03 13:24 | PROC ---
Procedure Note Procedure: BRONCHOSCOPY NOTE After discussing the risks and benefits of the procedure, informed consent was obtained. Pt was placed under MAC, Storz video bronchoscope passed via the oral airway, false vocal cords were edematous, short epiglottis. The darnell was slightly widened. There were no endobronchial lesions noted on the right side. There was a large thick mucous plug that was obstructing the left main bronchus. The LLL bronchus opening was not patent, either by an obstruction or bronchial narrowing. There was heme obstructing the view, which could not be lavaged without vigorous coughing. Cytology brushings and forceps biopsies were taken. Bronchoscope then withdrawn and procedure terminated. Pre-op Dx: Atelectasis Post-op Dx: r/o Lung Mass Plan: - f/u cytology, pathology, cultures Celestine Colon MD
--- NOTE | 2017-04-03 13:25 | PN ---
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 (short form) - Note 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: PULMONARY s/p bronchoscopy showing possible mass or bronchial narrowing. Last Vital Signs Temp Pulse Resp BP Pulse Ox 98.4 F 79 18 141/69 95 04/03/17 10:00 04/03/17 10:00 04/03/17 10:00 04/03/17 10:00 04/02/17 21:00 Gen: NAD at rest Heart: RRR Lung: decreased breath sounds left Abd: soft, nontender Ext: no edema CBC, BMP 03/29/17 10:15 03/29/17 10:15 Active Medications Acetaminophen (Tylenol Oral Solution -) 650 mg PEG Q6H PRN PRN Reason: FEVER OR PAIN Last Admin: 04/03/17 10:06 Dose: 650 mg Acyclovir (Zovirax -) 200 mg PEG BID [facility] Last Admin: 04/03/17 10:15 Dose: 200 mg Albuterol/Ipratropium (Duoneb -) 1 amp NEB TIDR [facility] Last Admin: 04/03/17 06:10 Dose: 1 amp Aspirin (Asa -) 81 mg PEG DAILY [facility] Last Admin: 04/03/17 10:15 Dose: Not Given Clotrimazole (Lotrisone Cream (Small Tube)) 1 applic TP BID [facility] Last Admin: 04/03/17 10:24 Dose: 1 applic Folic Acid (Folic Acid -) 1 mg PEG DAILY [facility] Last Admin: 04/03/17 10:14 Dose: 1 mg Furosemide (Lasix Injection -) 40 mg IVPUSH DAILY [facility] Last Admin: 04/03/17 10:11 Dose: 40 mg Gabapentin (Neurontin Oral Liquid -) 200 mg PEG TID [facility] Last Admin: 04/03/17 06:21 Dose: 200 mg Metronidazole (Flagyl 500mg Premixed Ivpb -) 100 mls @ 100 mls/hr IVPB Q8H-IV [facility] Last Admin: 04/03/17 10:06 Dose: 100 mls/hr Ceftriaxone Sodium 2 gm/ (Dextrose) 100 mls @ 200 mls/hr IVPB Q8H-IV [facility] Last Admin: 04/03/17 10:07 Dose: 200 mls/hr Levetiracetam (Keppra Oral Solution -) 750 mg PEG BID [facility] Last Admin: 04/03/17 10:13 Dose: 750 mg Magnesium Oxide (Mag-Ox -) 400 mg PEG DAILY [facility] Last Admin: 04/03/17 10:14 Dose: 400 mg Non-Formulary Medication (Tizanidine Hcl [Tizanidine Hcl]) 4 mg PO Q8H PRN PRN Reason: MUSCLE SPASMS/PAIN Last Admin: 03/25/17 16:52 Dose: 4 mg Ondansetron HCl (Zofran Injection) 4 mg IVPUSH Q6H PRN PRN Reason: NAUSEA AND/OR VOMITING Stop: 04/03/17 18:04 Pantoprazole Sodium (Protonix Packets For Oral Suspension -) 40 mg PEG DAILY [facility] Last Admin: 04/03/17 10:15 Dose: 40 mg Ropinirole HCl (Requip -) 1 mg NR DAILY [facility] Last Admin: 04/03/17 10:15 Dose: 1 mg A/P Aspiration Pneumonia Left Atelectasis Acute COPD Exacerbation h/o Laryngeal Ca - antibiotics per ID - inhaled bronchodilators - O2 to keep SpO2 >90% - f/u cytology, pathology and cultures
[2017-04-04] MEDS: CEFTRIAXONE 2 GM in DEXTROSE 5%-WATER 100 ML IVPB SCH ×2 (01:04→10:18)
[2017-04-04] MEDS: GABAPENTIN 250 MG/5 ML ORAL SOLUTION, 470 ML BOTTLE PEG SCH ×3 (06:18→21:11)
[2017-04-04] MEDS: ALBUTEROL SO4 2.5/IPRATROPIUM 0.5 INH SOL 3 ML VIAL.NEB. NEB SCH ×3 (07:03→21:39)
[2017-04-04 08:12] LABS: BASOPHIL 0.7 % (0-2.0); MCH 33.3 pg (25.7-33.7); MCHC 32.6 g/dl (32.0-35.9); MEAN CELL VOLUME 101.9 fl (80-96); MEAN PLT VOLUME 8.4 fl (7.5-11.1); NEUTROPHILS 81.1 % (42.8-82.8); PLATELET COUNT 397 K/MM3 (134-434); RDW 15.7 % (11.9-15.9); WHITE BLOOD COUNT 10.6 K/mm3 (4.0-10.0)
[2017-04-04 08:40] LABS: ANION GAP 7 (8-16); CALCIUM 8.3 mg/dL (8.5-10.1); CO2 30 mmol/L (21-32); CREATININE 0.6 mg/dL (0.7-1.3); GLUCOSE,RANDOM 95 mg/dL (74-106)
--- NOTE | 2017-04-04 10:15 | PN ---
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 (short form) - Note 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: PULMONARY Febrile overnight past bronchoscopy. Denies cough or hemoptysis. Wants to go home. Last Vital Signs Temp Pulse Resp BP Pulse Ox 98.5 F 72 20 118/66 96 04/04/17 07:07 04/04/17 07:07 04/04/17 07:07 04/04/17 07:07 04/03/17 21:00 Gen: NAD at rest Heart: RRR Lung: decreased breath sounds left Abd: soft, nontender Ext: no edema CBC, BMP 04/04/17 07:20 04/04/17 07:20 Active Medications Acetaminophen (Tylenol Oral Solution -) 650 mg PEG Q6H PRN PRN Reason: FEVER OR PAIN Last Admin: 04/03/17 22:27 Dose: 650 mg Acyclovir (Zovirax -) 200 mg PEG BID [facility] Last Admin: 04/03/17 22:28 Dose: 200 mg Albuterol/Ipratropium (Duoneb -) 1 amp NEB TIDR [facility] Last Admin: 04/04/17 07:03 Dose: 1 amp Aspirin (Asa -) 81 mg PEG DAILY [facility] Last Admin: 04/03/17 10:15 Dose: Not Given Clotrimazole (Lotrisone Cream (Small Tube)) 1 applic TP BID [facility] Last Admin: 04/03/17 22:28 Dose: 1 applic Folic Acid (Folic Acid -) 1 mg PEG DAILY [facility] Last Admin: 04/03/17 10:14 Dose: 1 mg Furosemide (Lasix Injection -) 40 mg IVPUSH DAILY [facility] Last Admin: 04/03/17 10:11 Dose: 40 mg Gabapentin (Neurontin Oral Liquid -) 200 mg PEG TID [facility] Last Admin: 04/04/17 06:18 Dose: 200 mg Metronidazole (Flagyl 500mg Premixed Ivpb -) 100 mls @ 100 mls/hr IVPB Q8H-IV [facility] Last Admin: 04/03/17 23:55 Dose: 100 mls/hr Ceftriaxone Sodium 2 gm/ (Dextrose) 100 mls @ 200 mls/hr IVPB Q8H-IV [facility] Last Admin: 04/04/17 01:04 Dose: 200 mls/hr Levetiracetam (Keppra Oral Solution -) 750 mg PEG BID [facility] Last Admin: 04/03/17 22:19 Dose: 750 mg Magnesium Oxide (Mag-Ox -) 400 mg PEG DAILY [facility] Last Admin: 04/03/17 10:14 Dose: 400 mg Non-Formulary Medication (Tizanidine Hcl [Tizanidine Hcl]) 4 mg PO Q8H PRN PRN Reason: MUSCLE SPASMS/PAIN Last Admin: 03/25/17 16:52 Dose: 4 mg Pantoprazole Sodium (Protonix Packets For Oral Suspension -) 40 mg PEG DAILY [facility] Last Admin: 04/03/17 10:15 Dose: 40 mg Ropinirole HCl (Requip -) 1 mg NR DAILY [facility] Last Admin: 04/03/17 10:15 Dose: 1 mg A/P Aspiration Pneumonia Left Atelectasis Acute COPD Exacerbation h/o Laryngeal Ca - antibiotics per ID - inhaled bronchodilators - O2 to keep SpO2 >90% - f/u cytology, pathology and cultures - can discharge on antibiotics if afebrile from pulmonary standpoint - discuss goals of care as pt adamantly wants to go home
[2017-04-04] MEDS ORDERED: DEXTROSE 5%-WATER 100 ML IVPB ONE (10:16)
[2017-04-04] MEDS ORDERED: PT OWN MED DRAWER 7, Y5N ONE ×2 (10:16→13:34)
[2017-04-04] MEDS: FUROSEMIDE 40 MG/4 ML INJECTABLE VIAL IVPUSH SCH (10:18)
[2017-04-04] MEDS: levETIRAcetam 500 MG/5 ML ORAL SOLUTION (UNIT-DOSE CUPS) PEG SCH ×2 (10:19→21:14)
[2017-04-04] MEDS: ASPIRIN 81 MG CHEWABLE TABLETS PEG SCH (10:19)
[2017-04-04] MEDS: rOPINIRole HCL 1 MG TABLET (FP) NR SCH (10:19)
[2017-04-04] MEDS: ACYCLOVIR 200 MG CAPSULE PEG SCH ×2 (10:19→21:12)
[2017-04-04] MEDS: PANTOPRAZOLE SOD 40 MG SUSPENSION PACKET PEG SCH (10:19)
[2017-04-04] MEDS: FOLIC ACID 1 MG TABLET (FP) PEG SCH (10:19)
[2017-04-04] MEDS: MAGNESIUM OXIDE 400 MG TABLET (FP) PEG SCH (10:19)
[2017-04-04] MEDS: CLOTRIMAZOLE/BETAMET DIPROP 15 GM TUBE TP SCH ×2 (10:20→21:14)
[2017-04-04] MEDS: METRONIDAZOLE 500 MG PREMIXED 100 ML IVPB SCH (11:31)
--- NOTE | 2017-04-04 12:55 | PN ---
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, Physician History of Present Illness: Awake, alert No complaints Breathing non-labored Spiked temp s/p bronchoscopy - Current Medication List Current Medications: Active Medications Acetaminophen (Tylenol Oral Solution -) 650 mg PEG Q6H PRN PRN Reason: FEVER OR PAIN Last Admin: 04/03/17 22:27 Dose: 650 mg Acyclovir (Zovirax -) 200 mg PEG BID [facility] Last Admin: 04/04/17 10:19 Dose: 200 mg Albuterol/Ipratropium (Duoneb -) 1 amp NEB TIDR [facility] Last Admin: 04/04/17 07:03 Dose: 1 amp Aspirin (Asa -) 81 mg PEG DAILY [facility] Last Admin: 04/04/17 10:19 Dose: 81 mg Clotrimazole (Lotrisone Cream (Small Tube)) 1 applic TP BID [facility] Last Admin: 04/04/17 10:20 Dose: 1 applic Folic Acid (Folic Acid -) 1 mg PEG DAILY [facility] Last Admin: 04/04/17 10:19 Dose: 1 mg Furosemide (Lasix Injection -) 40 mg IVPUSH DAILY [facility] Last Admin: 04/04/17 10:18 Dose: 40 mg Gabapentin (Neurontin Oral Liquid -) 200 mg PEG TID [facility] Last Admin: 04/04/17 06:18 Dose: 200 mg Metronidazole (Flagyl 500mg Premixed Ivpb -) 100 mls @ 100 mls/hr IVPB Q8H-IV [facility] Last Admin: 04/04/17 11:31 Dose: 100 mls/hr Ceftriaxone Sodium 2 gm/ (Dextrose) 100 mls @ 200 mls/hr IVPB Q8H-IV [facility] Last Admin: 04/04/17 10:18 Dose: 200 mls/hr Levetiracetam (Keppra Oral Solution -) 750 mg PEG BID [facility] Last Admin: 04/04/17 10:19 Dose: 750 mg Magnesium Oxide (Mag-Ox -) 400 mg PEG DAILY [facility] Last Admin: 04/04/17 10:19 Dose: 400 mg Non-Formulary Medication (Tizanidine Hcl [Tizanidine Hcl]) 4 mg PO Q8H PRN PRN Reason: MUSCLE SPASMS/PAIN Last Admin: 03/25/17 16:52 Dose: 4 mg Pantoprazole Sodium (Protonix Packets For Oral Suspension -) 40 mg PEG DAILY [facility] Last Admin: 04/04/17 10:19 Dose: 40 mg Ropinirole HCl (Requip -) 1 mg NR DAILY [facility] Last Admin: 04/04/17 10:19 Dose: 1 mg - Objective Vital Signs: Vital Signs Temperature 99.4 F 04/04/17 10:00 Pulse Rate 89 04/04/17 10:57 Respiratory Rate 20 04/04/17 10:00 Blood Pressure 128/77 04/04/17 10:00 O2 Sat by Pulse Oximetry (%) 95 04/04/17 10:57 Constitutional: Yes: No Distress Eyes: Yes: Conjunctiva Clear Cardiovascular: Yes: Regular Rate and Rhythm, S1, S2 Respiratory: Yes: Diminished Gastrointestinal: Yes: Normal Bowel Sounds, Soft. No: Tenderness Edema: No Labs: CBC, BMP 04/04/17 07:20 04/04/17 07:20 INR, PTT INR 1.02 (0.82-1.09) 03/17/17 07:30 Assessment/Plan LLL pneumonia / atelectasis effusion S/P bronchoscopy Laryngeal ca S/P RT Switch to po Augmentin x 72h Pulmonary follow up
[2017-04-04] MEDS: ACETAMINOPHEN 650 MG/20.3 ML ORAL SOLUTION (CUPS) PEG PRN (13:36)
--- NOTE | 2017-04-04 13:44 | PN ---
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, Physician Chief Complaint: held a long discussion with the pt and about advance directives and that there is a possibility of lung mass seen on bronchoscopy - Current Medication List Current Medications: Active Medications Acetaminophen (Tylenol Oral Solution -) 650 mg PEG Q6H PRN PRN Reason: FEVER OR PAIN Last Admin: 04/04/17 13:36 Dose: 650 mg Acyclovir (Zovirax -) 200 mg PEG BID [facility] Last Admin: 04/04/17 10:19 Dose: 200 mg Albuterol/Ipratropium (Duoneb -) 1 amp NEB TIDR [facility] Last Admin: 04/04/17 07:03 Dose: 1 amp Amoxicillin/Clavulanate Potassium (Augmentin 250 Mg/5 Ml Oral Suspension -) 500 mg PO BID@0800,1730 [facility] Aspirin (Asa -) 81 mg PEG DAILY [facility] Last Admin: 04/04/17 10:19 Dose: 81 mg Clotrimazole (Lotrisone Cream (Small Tube)) 1 applic TP BID [facility] Last Admin: 04/04/17 10:20 Dose: 1 applic Folic Acid (Folic Acid -) 1 mg PEG DAILY [facility] Last Admin: 04/04/17 10:19 Dose: 1 mg Furosemide (Lasix Injection -) 40 mg IVPUSH DAILY [facility] Last Admin: 04/04/17 10:18 Dose: 40 mg Gabapentin (Neurontin Oral Liquid -) 200 mg PEG TID [facility] Last Admin: 04/04/17 13:36 Dose: 200 mg Levetiracetam (Keppra Oral Solution -) 750 mg PEG BID [facility] Last Admin: 04/04/17 10:19 Dose: 750 mg Magnesium Oxide (Mag-Ox -) 400 mg PEG DAILY [facility] Last Admin: 04/04/17 10:19 Dose: 400 mg Non-Formulary Medication (Tizanidine Hcl [Tizanidine Hcl]) 4 mg PO Q8H PRN PRN Reason: MUSCLE SPASMS/PAIN Last Admin: 03/25/17 16:52 Dose: 4 mg Pantoprazole Sodium (Protonix Packets For Oral Suspension -) 40 mg PEG DAILY [facility] Last Admin: 04/04/17 10:19 Dose: 40 mg Ropinirole HCl (Requip -) 1 mg NR DAILY [facility] Last Admin: 04/04/17 10:19 Dose: 1 mg - Objective Vital Signs: Vital Signs Temperature 99.4 F 04/04/17 10:00 Pulse Rate 89 04/04/17 10:57 Respiratory Rate 20 04/04/17 10:00 Blood Pressure 128/77 04/04/17 10:00 O2 Sat by Pulse Oximetry (%) 95 04/04/17 10:57 Constitutional: Yes: No Distress, Anxious Cardiovascular: Yes: Regular Rate and Rhythm Respiratory: Yes: Diminished, Rhonchi Gastrointestinal: Yes: Normal Bowel Sounds, Soft. No: Distention, Tenderness Edema: No Labs: CBC, BMP 04/04/17 07:20 04/04/17 07:20 INR, PTT INR 1.02 (0.82-1.09) 03/17/17 07:30 Problem List - Problems (1) Alcohol dependence with uncomplicated withdrawal Code(s): F10.230 - ALCOHOL DEPENDENCE WITH WITHDRAWAL, UNCOMPLICATED (2) COPD (chronic obstructive pulmonary disease) Code(s): J44.9 - CHRONIC OBSTRUCTIVE PULMONARY DISEASE, UNSPECIFIED (3) COPD with exacerbation Code(s): J44.1 - CHRONIC OBSTRUCTIVE PULMONARY DISEASE W (ACUTE) EXACERBATION (4) Confusion with non-focal neuro exam Code(s): R41.0 - DISORIENTATION, UNSPECIFIED (5) History of throat cancer Code(s): Z85.819 - PRSNL HX OF MALIG NEOPLM OF UNSP SITE LIP,ORAL CAV,& PHARYNX (6) Lung cancer, hilus Code(s): C34.00 - MALIGNANT NEOPLASM OF UNSPECIFIED MAIN BRONCHUS (7) Protein-calorie malnutrition, severe Code(s): E43 - UNSPECIFIED SEVERE PROTEIN-CALORIE MALNUTRITION Assessment/Plan PLAN febrile this AM continue with antibiotics-- spoke with Dr Whaley-- will foreign exchange services manager to PO augmentin Pulmonary followup noted CXR-- slight clearing at upper part of left lung likely fever due to atelectasis ?pneumona continue with chest PT, nebs, O2, incentive spirometer and pt decided palliative care-- he has agree for no chemotherapy, radiation therapy-- he wants to go home-- wants to eat knowing the risks.Spoke with palliative care nurse- pt is DNR/DNI-- will be dc home tomorrow on home hospice once arrangement is made
[2017-04-04] MEDS ORDERED: AMOX TR/POT CLAV 875MG/125MG TABLETS (FP) PO SCH (17:30)
[2017-04-04] MEDS: AMOX TR/POTASSIUM CLAVULANATE 250 MG/5 ML BOTTLE PO SCH (18:33)
[2017-04-05] MEDS: ALBUTEROL SO4 2.5/IPRATROPIUM 0.5 INH SOL 3 ML VIAL.NEB. NEB SCH (06:30)
[2017-04-05] MEDS: GABAPENTIN 250 MG/5 ML ORAL SOLUTION, 470 ML BOTTLE PEG SCH (06:44)
--- NOTE | 2017-04-05 07:04 | PN ---
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, Physician Chief Complaint: s/p flex bronchoscopy under MAC and blocks History of Present Illness: post op day one. - Current Medication List Current Medications: Active Medications Acetaminophen (Tylenol Oral Solution -) 650 mg PEG Q6H PRN PRN Reason: FEVER OR PAIN Last Admin: 04/04/17 13:36 Dose: 650 mg Acyclovir (Zovirax -) 200 mg PEG BID [facility] Last Admin: 04/04/17 21:12 Dose: 200 mg Albuterol/Ipratropium (Duoneb -) 1 amp NEB TIDR [facility] Last Admin: 04/05/17 06:30 Dose: 1 amp Amoxicillin/Clavulanate Potassium (Augmentin 250 Mg/5 Ml Oral Suspension -) 500 mg PO BID@0800,1730 [facility] Last Admin: 04/04/17 18:33 Dose: 500 mg Aspirin (Asa -) 81 mg PEG DAILY [facility] Last Admin: 04/04/17 10:19 Dose: 81 mg Clotrimazole (Lotrisone Cream (Small Tube)) 1 applic TP BID [facility] Last Admin: 04/04/17 21:14 Dose: 1 applic Folic Acid (Folic Acid -) 1 mg PEG DAILY [facility] Last Admin: 04/04/17 10:19 Dose: 1 mg Furosemide (Lasix -) 40 mg PO DAILY [facility] Gabapentin (Neurontin Oral Liquid -) 200 mg PEG TID [facility] Last Admin: 04/05/17 06:44 Dose: 200 mg Levetiracetam (Keppra Oral Solution -) 750 mg PEG BID [facility] Last Admin: 04/04/17 21:14 Dose: 750 mg Magnesium Oxide (Mag-Ox -) 400 mg PEG DAILY [facility] Last Admin: 04/04/17 10:19 Dose: 400 mg Non-Formulary Medication (Tizanidine Hcl [Tizanidine Hcl]) 4 mg PO Q8H PRN PRN Reason: MUSCLE SPASMS/PAIN Last Admin: 03/25/17 16:52 Dose: 4 mg Pantoprazole Sodium (Protonix Packets For Oral Suspension -) 40 mg PEG DAILY [facility] Last Admin: 04/04/17 10:19 Dose: 40 mg Ropinirole HCl (Requip -) 1 mg NR DAILY [facility] Last Admin: 04/04/17 10:19 Dose: 1 mg - Objective Vital Signs: Vital Signs Temperature 99.1 F 04/05/17 06:56 Pulse Rate 92 H 10/06/17 06:56 Respiratory Rate 20 04/05/17 06:56 Blood Pressure 128/72 04/05/17 06:56 O2 Sat by Pulse Oximetry (%) 96 04/04/17 21:00 Constitutional: Yes: Well Nourished Cardiovascular: Yes: WNL Respiratory: Yes: Regular Gastrointestinal: Yes: WNL Labs: CBC, BMP 04/04/17 07:20 04/04/17 07:20 INR, PTT INR 1.02 (0.82-1.09) 03/17/17 07:30 Assessment/Plan Patient is doing well, no signs of respiratory distress, no complaints about anesthetic, no pain, dept of anesthesia will sign off care at this time
[2017-04-05] MEDS ORDERED: PT OWN MED DRAWER 7, Y5N ONE ×3 (08:32→12:29)
[2017-04-05] MEDS: ASPIRIN 81 MG CHEWABLE TABLETS PEG SCH (09:17)
[2017-04-05] MEDS: rOPINIRole HCL 1 MG TABLET (FP) NR SCH (09:17)
[2017-04-05] MEDS: FOLIC ACID 1 MG TABLET (FP) PEG SCH (09:17)
[2017-04-05] MEDS: PANTOPRAZOLE SOD 40 MG SUSPENSION PACKET PEG SCH (09:17)
[2017-04-05] MEDS: AMOX TR/POTASSIUM CLAVULANATE 250 MG/5 ML BOTTLE PO SCH (09:17)
[2017-04-05] MEDS: ACYCLOVIR 200 MG CAPSULE PEG SCH (09:17)
[2017-04-05] MEDS: levETIRAcetam 500 MG/5 ML ORAL SOLUTION (UNIT-DOSE CUPS) PEG SCH (09:18)
[2017-04-05] MEDS: MAGNESIUM OXIDE 400 MG TABLET (FP) PEG SCH (09:19)
[2017-04-05] MEDS: CLOTRIMAZOLE/BETAMET DIPROP 15 GM TUBE TP SCH (09:19)
[2017-04-05] MEDS ORDERED: FUROSEMIDE 40 MG TABLET (FP) PO SCH (10:00)
--- NOTE | 2017-04-05 11:56 | DS ---
Physical Examination Vital Signs: Vital Signs Temperature 99.1 F 04/05/17 06:56 Pulse Rate 92 H 04/05/17 06:56 Respiratory Rate 20 04/05/17 06:56 Blood Pressure 128/72 04/05/17 06:56 O2 Sat by Pulse Oximetry (%) 96 04/04/17 21:00 Constitutional: Yes: No Distress, Calm Cardiovascular: Yes: Regular Rate and Rhythm Respiratory: Yes: Diminished, Rhonchi (left) Gastrointestinal: Yes: Normal Bowel Sounds, Soft. No: Abdomen, Obese, Distention, Tenderness Edema: No Labs: CBC, BMP 04/04/17 07:20 04/04/17 07:20 Discharge Summary Reason For Visit: COPD/ALCOHOL WITHDRAWAL/LARYNGEAL CA Current Active Problems Abnormal CAT scan (Acute) Alcohol dependence with uncomplicated withdrawal (Acute) CAD (coronary artery disease) (Acute) COPD (chronic obstructive pulmonary disease) (Acute) COPD with exacerbation (Acute) Confusion with non-focal neuro exam (Acute) Dislodged gastrostomy tube (Acute) Duodenal ulcer with hemorrhage (Acute) Dyspnea (Acute) Epigastric abdominal pain (Acute) Epigastric discomfort (Acute) History of throat cancer (Acute) Hyperkalemia (Acute) Laryngeal cancer (Acute) Laryngeal mass (Acute) Laryngeal neoplasm (Acute) Lung cancer, hilus (Acute) Meatal stenosis (Acute) Positive occult stool blood test (Acute) Protein-calorie malnutrition, severe (Acute) Renal failure (Acute) Seizure disorder (Acute) Sepsis (Acute) Hospital Course: Pt admitted for COPD exacerbation, alcohol withdrawal He was on antibiotics, solumedrol, nebs condition worsening due to questionable aspiration but Modified barium swallow did not show aspiration Seen by ID, pulmonary, cardiothoracic surgeon Pt had bronchoscopy done as his chest xrays continued to show atelectasis and complete whitening of left lung-- bronchoscopy showed possible lung mass. Pt does not wish for any further interventions in terms of chemotherapy and radiation He wishes to go home his and himself are aware of poor prognosis pt may eat by mouth and get GT feeds He will be on home hospice stable for dc home Condition: Improved - Instructions Referrals: Linda Loera MD [Primary Care Provider] - Disposition: HOME - Home Medications Comprehensive Discharge Medication List: Ambulatory Orders Acyclovir [Zovirax -] 200 mg PO BID 03/16/17 Albuterol Sulfate [Proair Respiclick] 90 mcg IH TID 03/16/17 Aspirin [ASA -] 81 mg PO DAILY 03/16/17 Clonazepam [Klonopin] 1 mg PO BID 03/16/17 Furosemide [Lasix] 40 mg PO DAILY 03/16/17 Gabapentin [Neurontin] 600 mg PO DAILY 03/16/17 Guaifenesin [Robitussin -] 5 ml PO QID PRN 03/16/17 Levetiracetam [Keppra -] 750 mg PO BID 03/16/17 Magnesium Oxide [Mag-Ox -] 400 mg PO BID 03/16/17 Mirtazapine [Remeron -] 15 mg PO DAILY 03/16/17 Oxycodone HCl [Oxycontin] 30 mg PO BID PRN 03/16/17 Pantoprazole Sodium [Protonix -] 40 mg PO DAILY 03/16/17 Potassium Chloride [K-Dur -] 10 meq PO DAILY 03/16/17 Ropinirole HCl 1 mg PO DAILY 03/16/17 Tizanidine HCl 4 mg PO BID 03/16/17 Tramadol HCl 50 mg PO DAILY 03/16/17 Venlafaxine HCl [Effexor -] 150 mg PO DAILY 03/16/17 Amox-Tr/K Cl [Augmentin Suspension -] 500 mg PO BID@0800,1730 #60 ml 04/04/17
[2017-04-05 12:33] VITALS: BP 111/58; PULSE 95; TEMP 99.2
--- NOTE | 2017-04-05 15:03 | PATH ---
Surgical Pathology Report Patient Name: NAOMI MERRITT Med. Rec. #: [id number] /Age/Gender: 1950 (Age: 66) / M Account: [id number] Location: [facility] MED/SURG Taken: 04/03/2017 Received: 04/04/2017 Reported: 04/05/2017 Physicians: Jean Pierre Rodriguez M.D. Specimen(s) Received LEFT LOWER LOBE BIOPSY Clinical History Atelectasis Final Diagnosis LUNG, LEFT LOWER LOBE, BRONCHIAL BIOPSY: SQUAMOUS CELL CARCINOMA, FAVOR MODERATELY DIFFERENTIATED. Comment: Sections reveal bronchial mucosa partially covered by a proliferation of neoplastic cells with moderate amounts of amphophilic cytoplasm and areas with a somewhat basaloid appearance. Immunohistochemical stains performed and interpreted at [facility] show the following results: The neoplastic cells are positive with AE1/3 and p63. The neoplastic cells do not stain with CK7, CK20, TTF-1, synaptophysin, or chromogranin. The histologic and immunophenotypic findings are consistent with squamous cell carcinoma. Also see prior specimens [id number] and [id number]. This case was discussed with Dr. Colon on April 05, 2017. Immunostain for PD L1 is pending, and a report will follow. Electronically Signed Celestine Cortes M.D. Addendum Reported: 04/09/2017 Addendum Diagnosis PD-L1 (Keytruda) IHC, Clone 22C3 Pharm DX performed and interpreted at [place], [place] ([id number]) shows the following: RESULT: PD-L1 (Keytruda) TPS: 5% (Low PD-L1 Expression) Reference Range: TPS=Tumor Proportion Score (% of at least 100 viable tumor cells showing complete or partial membrane staining at = 1+) TPS <1% = No Expression TPS 1-49% = Low Expression. (Eligible for second line treatment with Keytruda) TPS =50% = High Expression. (Eligible for first or second line treatment with Keytruda) Celestine Cortes M.D. Gross Description Received in formalin labeled "left lower lobe biopsy," are 6 tian-brown, irregular portions of soft tissue averaging 0.1 cm in greatest dimension. The specimens are submitted in toto in one cassette. DL/04/04/2017 [facility]04/04/2017
--- NOTE | 2017-04-05 15:22 | PATH ---
Cytology Non-Gynecological Report Patient Name: NAOMI MERRITT Med. Rec. #: [id number] /Age/Gender: 1950 (Age: 66) / M Account: [id number] Location: [facility] MED/SURG Taken: 04/03/2017 Received: 04/04/2017 Reported: 04/05/2017 Physicians: Celestine Colon M.D. Specimen(s) Received BRONCHIAL WASHINGS LEFT LOBE Clinical History None given Final Diagnosis LUNG, LEFT LOBE, BRONCHIAL WASHING: SATISFACTORY FOR EVALUATION. BENIGN (NO MALIGNANT CELLS IDENTIFIED). BENIGN SQUAMOUS CELLS, RESPIRATORY EPITHELIAL CELLS, NEUTROPHILS, AND RED BLOOD CELLS PRESENT. Comment: Also see concurrent biopsy [id number]. Electronically Signed Celestine Cortes M.D. Gross Description Approximately 20 cc of clear fluid received fixed in 50% alcohol. Two cytofunnels and one cellblock prepared.
--- NOTE | 2017-04-05 15:22 | PATH ---
Cytology Non-Gynecological Report Patient Name: NAOMI MERRITT Med. Rec. #: [id number] /Age/Gender: 1950 (Age: 66) / M Account: [id number] Location: [facility] MED/SURG Taken: 04/03/2017 Received: 04/04/2017 Reported: 04/05/2017 Physicians: Celestine Colon M.D. Specimen(s) Received BRONCHIAL BRUSHINGS LEFT LOBE Clinical History None given Final Diagnosis LUNG, LEFT LOBE, BRONCHIAL BRUSHING: SATISFACTORY FOR EVALUATION. RARE ATYPICAL CELL PRESENT SUSPICIOUS FOR NON-SMALL CELL CARCINOMA. Comment: See concurrent biopsy [id number]. Electronically Signed Celestine Cortes M.D. Gross Description Approximately 50 cc of bloody fluid received fixed in 50% alcohol. Two cytofunnels prepared.
== END 2017-04-05 12:27 | disposition hospice, home (50) | DRG 166 ==
LOC: JER 10:28 → JERBED 13:18 → J8W 15:09
PROVIDERS: ADMIT Internal Medicine; ATTEND Internal Medicine
PROC: 0D20XUZ Change Feeding Device in Upper Intestinal Tract, External Approach (ICD-10-PCS; 2017-03-21)
PROC: 0BBJ8ZX Excision of Left Lower Lung Lobe, Via Natural or Artificial Opening Endoscopic, Diagnostic (ICD-10-PCS; 2017-04-03)
PROC: 0BDB8ZX Extraction of Left Lower Lobe Bronchus, Via Natural or Artificial Opening Endoscopic, Diagnostic (ICD-10-PCS; principal; 2017-04-03 12:00)
DX: C34.32 Malignant neoplasm of lower lobe, left bronchus or lung (principal); E43 Unspecified severe protein-calorie malnutrition; J44.1 Chronic obstructive pulmonary disease with (acute) exacerbation; F10.230 Alcohol dependence with withdrawal, uncomplicated; J98.11 Atelectasis; T17.590A Other foreign object in bronchus causing asphyxiation, initial encounter; G40.89 Other seizures; Z68.1 Body mass index [BMI] 19.9 or less, adult; R64 Cachexia; R44.3 Hallucinations, unspecified; Z85.818 Personal history of malignant neoplasm of other sites of lip, oral cavity, and pharynx; Z85.118 Personal history of other malignant neoplasm of bronchus and lung; Z90.2 Acquired absence of lung [part of]; I10 Essential (primary) hypertension; I25.10 Atherosclerotic heart disease of native coronary artery without angina pectoris; E87.5 Hyperkalemia; K94.29 Other complications of gastrostomy; Y83.3 Surgical operation with formation of external stoma as the cause of abnormal reaction of the patient, or of later complication, without mention of misadventure at the time of the procedure; Y92.89 Other specified places as the place of occurrence of the external cause; F17.210 Nicotine dependence, cigarettes, uncomplicated; J45.909 Unspecified asthma, uncomplicated; Z95.5 Presence of coronary angioplasty implant and graft; G89.29 Other chronic pain; K21.9 Gastro-esophageal reflux disease without esophagitis; F41.9 Anxiety disorder, unspecified; Z91.14 Patient's other noncompliance with medication regimen; Z78.1 Physical restraint status; M54.5 Low back pain; Z79.01 Long term (current) use of anticoagulants; R21 Rash and other nonspecific skin eruption; R41.0 Disorientation, unspecified; Z66 Do not resuscitate; Z87.11 Personal history of peptic ulcer disease
CPT/HCPCS: 36415; 70450-TC; 71010-TC; 71020-TC; 71250-TC; 74000-TC; 74230-TC; 80048; 80053; 80307; 81003; 82140; 82553; 83735; 83880; 84484; 85025; 85027; 85610; 87040; 87070; 87081; 87086; 87102; 87116; 87205; 87206; 87210; 87899; 88104; 88108; 88305-TC; 88341-TC; 92611-GN; 93005; 93010; 93306-TC; 94640; 94760; 97116-GP; 97161-GP; 99284-25; J1644

== ENCOUNTER 2017-04-12 21:47 | Observation (INO) | payer OTHER ==
[2017-04-12 22:43] VITALS: BMI 16.7
--- NOTE | 2017-04-13 00:24 | PDOC ---
History of Present Illness - General Chief Complaint: Shortness of Breath Stated Complaint: DIFFICULT BREATHING Time Seen by Provider: 04/12/17 23:21 - History of Present Illness Initial Comments: 04/13/17 00:04 CHIEF COMPLAINT: AMS HISTORY OF PRESENT ILLNESS: 66 yo M with hx of esophageal cancer -- s/p recent RT--current smoker, COPD,lung cancer (s/p lobectomy), chronic pain issues , seizure disorder and current alcoholic presents to ED due to 's concerns that he has had AMS for the past three days and she no longer feels capable of caring for him. Per patient has become increasingly combative and has been witnessed turning on the stove, putting herself and others in danger due to oxygen tanks in the vicinity. Patient currently denies any complaints and repeatedly states he "just wants to go home" while appearing agitated. No recent travel or sick contacts. PAST MEDICAL HISTORY: Denies past medical history FAMILY HISTORY: Denies SOCIAL HISTORY:Current smoker, current alcohol abuse. Denies illicit drug use. SURGICAL HISTORY: Denies ALLERGIES: No known drug allergies REVIEW OF SYSTEMS as per HPI -patient denies any complaints but reports AMS PHYSICAL EXAM General Appearance: No apparent distress, weak appearing. HEENT: EOMI, PERRLA. No conjunctival pallor. No photophobia, scleral icterus. Respiratory/Chest: Lungs CTAB. Cardiovascular: RRR. S1, S2. Gastrointestinal/Abdominal: Normal bowel sounds. Abdomen soft, non-distended. No tenderness or rebound tenderness. No organomegaly, pulsatile mass, guarding , hernia, hepatomegaly, splenomegaly. Musculoskeletal/Extremities: Normal inspection. FROM of all extremities, normal capillary refill. Pelvis Stable. No CVA tenderness. No tenderness to extremities, pedal edema, swelling, erythema or deformity. Integumentary: Pale. Dry, warm. No cyanosis, erythema, jaundice or rash Neurologic: Confused, patient unsure why he is in hospital and repeatedly requests to leave. No appreciable EOM palsy, facial droop or sensory deficit. 04/16/17 06:08 Past History - Past Medical History Allergies/Adverse Reactions: Allergies Allergy/AdvReac Type Severity Reaction Status Date / Time shellfish derived Allergy REDDNESS Verified 04/12/17 22:37 AND SWELLING Radioactive opaque dye Allergy Severe Rash Uncoded 04/12/17 22:37 Home Medications: Ambulatory Orders Acyclovir [Zovirax -] 200 mg PO BID 03/16/17 Albuterol Sulfate [Proair Respiclick] 90 mcg IH TID 03/16/17 Aspirin [ASA -] 81 mg PO DAILY 03/16/17 Clonazepam [Klonopin] 1 mg PO BID 03/16/17 Furosemide [Lasix] 40 mg PO DAILY 03/16/17 Gabapentin [Neurontin] 600 mg PO DAILY 03/16/17 Guaifenesin [Robitussin -] 5 ml PO QID PRN 03/16/17 Levetiracetam [Keppra -] 750 mg PO BID 03/16/17 Magnesium Oxide [Mag-Ox -] 400 mg PO BID 03/16/17 Mirtazapine [Remeron -] 15 mg PO DAILY 03/16/17 Oxycodone HCl [Oxycontin] 30 mg PO BID PRN 03/16/17 Pantoprazole Sodium [Protonix -] 40 mg PO DAILY 03/16/17 Potassium Chloride [K-Dur -] 10 meq PO DAILY 03/16/17 Ropinirole HCl 1 mg PO DAILY 03/16/17 Tizanidine HCl 4 mg PO BID 03/16/17 Tramadol HCl 50 mg PO DAILY 03/16/17 Venlafaxine HCl [Effexor -] 150 mg PO DAILY 03/16/17 Amox-Tr/K Cl [Augmentin Suspension -] 500 mg PO BID@0800,1730 #60 ml 04/04/17 Anemia: No Asthma: Yes Cancer: Yes (LUNG, throat) Cardiac Disorders: Yes COPD: Yes GI Disorders: Yes (bleed) Liver Disease: Yes Seizures: Yes - Surgical History Abdominal Surgery: Yes Appendectomy: Yes Cardiac Surgery: Yes (3 STENTS) Lung Surgery: Yes (LT LOWER LOBECTOMY) - Immunization History Td Vaccination: Yes TDAP Vaccination: Yes Immunization Up to Date: Yes - Suicide/Smoking/Psychosocial Hx Smoking Status: Yes Smoking History: Unknown if ever smoked Years of Tobacco Use: 40 Have you smoked in the past 12 months: No Number of Cigarettes Smoked Daily: 10 If you are a former smoker, when did you quit?: 1 month ago Cigars Per Day: 0 Information on smoking cessation initiated: No 'Breaking Loose' booklet given: 04/12/16 Hx Alcohol Use: No Drug/Substance Use Hx: No Substance Use Type: Alcohol Hx Substance Use Treatment: No Respiratory Specific PMHX - Complaint Specific PMHX Bronchitis: Yes Pneumonia: Yes *Physical Exam - Vital Signs Last Vital Signs Temp Pulse Resp BP Pulse Ox 99.2 F 95 H 20 120/56 100 04/12/17 22:37 04/12/17 22:37 04/12/17 22:37 04/12/17 22:37 04/12/17 22:37 ED Treatment Course - LABORATORY CBC & Chemistry Diagram: 04/13/17 01:21 04/13/17 01:21 Medical Decision Making - Medical Decision Making 66 yo M with hx of esophageal cancer -- s/p recent RT--current smoker, COPD, lung cancer (s/p lobectomy), chronic pain issues , seizure disorder and current alcoholic presents to ED due to 's concerns that he has had AMS for the past three days and she no longer feels capable of caring for him. Case discussed with PCP Neri who agrees to admit for obs for social work consult and possible transfer to hospice. *DC/Admit/Observation/Transfer Diagnosis at time of Disposition: Altered mental status Qualifiers: Altered mental status type: unspecified Qualified Code(s): R41.82 - Altered mental status, unspecified - Discharge Dispostion Admit: Yes
[2017-04-13 01:40] LABS: BASOPHIL 0.8 % (0-2.0); EOSINOPHIL 0.3 % (0-4.5); MCH 32.5 pg (25.7-33.7); MCHC 32.6 g/dl (32.0-35.9); MEAN CELL VOLUME 99.6 fl (80-96); MEAN PLT VOLUME 8.8 fl (7.5-11.1); NEUTROPHILS 75.9 % (42.8-82.8); PLATELET COUNT 521 K/MM3 (134-434); RDW 15.7 % (11.9-15.9); WHITE BLOOD COUNT 11.5 K/mm3 (4.0-10.0)
[2017-04-13 01:52] LABS: INR 1.03 (0.82-1.09); PROTHROMBIN TIME (PATIENT) 11.6 SEC (9.98-11.88)
[2017-04-13 02:03] LABS: ALBUMIN 2.3 g/dl (3.4-5.0); ANION GAP 10 (8-16); CO2 32 mmol/L (21-32); CREATININE 0.7 mg/dL (0.7-1.3); GLUCOSE,RANDOM 98 mg/dL (74-106); MAGNESIUM 2.5 mg/dL (1.8-2.4); SGOT/AST 27 U/L (15-37); SGPT/ALT 29 U/L (12-78)
[2017-04-13 02:04] LABS: ALK PHOS 115 U/L (45-117); BILIRUBIN,TOTAL 0.2 mg/dL (0.2-1.0); TOT PROT 6.2 g/dl (6.4-8.2)
[2017-04-13] MEDS ORDERED: NICOTINE 14 MG/24 HOURS TOPICAL PATCH TD SCH (10:00)
--- NOTE | 2017-04-13 11:07 | EKG ---
Test Reason : Blood Pressure : / mmHG Vent. Rate : 097 BPM Atrial Rate : 097 BPM P-R Int : 122 ms QRS Dur : 060 ms QT Int : 366 ms P-R-T Axes : 098 -03 059 degrees QTc Int : 464 ms POOR DATA QUALITY, INTERPRETATION MAY BE ADVERSELY AFFECTED NORMAL SINUS RHYTHM ANTERIOR INFARCT (CITED ON OR BEFORE 13-APR-2017) ABNORMAL ECG WHEN COMPARED WITH ECG OF 16-MAR-2017 11:41, NO SIGNIFICANT CHANGE WAS FOUND Confirmed by MARIA LUISA DRUMMOND MD ([id number]) on 04/13/2017 11:06:54 AM Referred By: Confirmed By:MARIA LUISA DRUMMOND MD
[2017-04-13] MEDS ORDERED: traMADol HCL 50 MG TABLET PO PRN (11:35)
[2017-04-13] MEDS ORDERED: PATIENT'S OWN MEDICATION (NON-FORMULARY) (Oxycodone Hcl [Oxycontin] 30 MG) PO PRN (11:35)
[2017-04-13] MEDS ORDERED: guaiFENesin 200 MG/10 ML 10 ML UNIT-DOSE CUPS PO PRN (11:35)
--- NOTE | 2017-04-13 12:18 | HP ---
Admitting History and Physical - Primary Care Physician PCP: Katiana He - Admission History of Present Illness: 66 yo M with hx of esophageal cancer -- s/p recent RT--current smoker, COPD, lung cancer (s/p lobectomy), chronic pain issues , seizure disorder and current alcoholic presents to ED due to 's concerns that he has had AMS for the past three days and she no longer feels capable of caring for him. Per patient has become increasingly combative and has been witnessed turning on the stove, putting herself and others in danger due to oxygen tanks in the vicinity. pt recently had prolonged stay in hospital-- had bronch-- sq cell ca Pt seen by me in er at bedside pt very weak speaks only few words slowly requests [facility]- nurse jessenia has bed available also History Source: Family Member Limitations to Obtaining History: Clinical Condition - Past Medical History [employer]ER: Yes: Seizure (alcohol induced). No: Alzheimer's Cardiovascular: Yes: CAD, Other (STENTING). No: AFIB Pulmonary: Yes: Cancer (lung Ca), COPD, Pneumonia Gastrointestinal: Yes: GERD, Other (Duodenal ulcers- cauterized july 2014) Psych: Yes: Addictions, Anxiety Musculoskeletal: Yes: Chronic low back pain - Past Surgical History Past Surgical History: Yes: Thoracotomy - Smoking History Smoking history: Unknown if ever smoked Have you smoked in the past 12 months: No Aproximately how many cigarettes per day: 10 If you are a former smoker, when did you quit?: 1 month ago - Alcohol/Substance Use Hx Alcohol Use: No Number of Drinks Daily: 8 History of Substance Use: reports: None. denies: Prescription - Social History ADL: Family Assistance History of Recent Travel: No Home Medications - Allergies Allergies/Adverse Reactions: Allergies Allergy/AdvReac Type Severity Reaction Status Date / Time shellfish derived Allergy REDDNESS Verified 04/12/17 22:37 AND SWELLING Radioactive opaque dye Allergy Severe Rash Uncoded 04/12/17 22:37 - Home Medications Home Medications: Ambulatory Orders Acyclovir [Zovirax -] 200 mg PO BID 03/16/17 Albuterol Sulfate [Proair Respiclick] 90 mcg IH TID 03/16/17 Aspirin [ASA -] 81 mg PO DAILY 03/16/17 Clonazepam [Klonopin] 1 mg PO BID 03/16/17 Furosemide [Lasix] 40 mg PO DAILY 03/16/17 Gabapentin [Neurontin] 600 mg PO DAILY 03/16/17 Guaifenesin [Robitussin -] 5 ml PO QID PRN 03/16/17 Levetiracetam [Keppra -] 750 mg PO BID 03/16/17 Magnesium Oxide [Mag-Ox -] 400 mg PO BID 03/16/17 Mirtazapine [Remeron -] 15 mg PO DAILY 03/16/17 Oxycodone HCl [Oxycontin] 30 mg PO BID PRN 03/16/17 Pantoprazole Sodium [Protonix -] 40 mg PO DAILY 03/16/17 Potassium Chloride [K-Dur -] 10 meq PO DAILY 03/16/17 Ropinirole HCl 1 mg PO DAILY 03/16/17 Tizanidine HCl 4 mg PO BID 03/16/17 Tramadol HCl 50 mg PO DAILY 03/16/17 Venlafaxine HCl [Effexor -] 150 mg PO DAILY 03/16/17 Amox-Tr/K Cl [Augmentin Suspension -] 500 mg PO BID@0800,1730 #60 ml 04/04/17 Family Disease History - Family Disease History Family Disease History: Diabetes: Grandparent, [place]: Father, Other: Mother ( alcoholism) Review of Systems Unable to obtain ROS, reason: clinicla condition Physical Examination Vital Signs: Vital Signs Temperature 98.0 F 04/13/17 02:37 Pulse Rate 90 04/13/17 06:22 Respiratory Rate 16 04/13/17 06:22 Blood Pressure 105/62 04/13/17 06:22 O2 Sat by Pulse Oximetry (%) 88 L 04/13/17 06:22 Constitutional: Yes: Cachectic Eyes: Yes: Conjunctiva Clear Neck: Yes: Supple Cardiovascular: Yes: Regular Rate and Rhythm Respiratory: Yes: Diminished Gastrointestinal: Yes: Soft, Other (g tube) Edema: No Neurological: Yes: Other (awake) Imaging - Results Chest X-ray: Report Reviewed Cat Scan: Report Reviewed EKG: Report Reviewed Problem List - Problems (1) Altered mental status Code(s): R41.82 - ALTERED MENTAL STATUS, UNSPECIFIED Qualifiers: Altered mental status type: unspecified Qualified Code(s): R41.82 - Altered mental status, unspecified; R41.82 - Altered mental status, unspecified (2) Confusion with non-focal neuro exam Code(s): R41.0 - DISORIENTATION, UNSPECIFIED (3) Laryngeal neoplasm Code(s): D49.1 - NEOPLASM OF UNSPECIFIED BEHAVIOR OF RESPIRATORY SYSTEM (4) Lung cancer, hilus Code(s): C34.00 - MALIGNANT NEOPLASM OF UNSPECIFIED MAIN BRONCHUS (5) Seizure disorder Code(s): G40.909 - EPILEPSY, UNSP, NOT INTRACTABLE, WITHOUT STATUS EPILEPTICUS (6) COPD (chronic obstructive pulmonary disease) Code(s): J44.9 - CHRONIC OBSTRUCTIVE PULMONARY DISEASE, UNSPECIFIED (7) Squamous cell lung cancer Code(s): C34.90 - MALIGNANT NEOPLASM OF UNSP PART OF UNSP BRONCHUS OR LUNG Assessment/Plan OVerall condition poor Discussed with pts in detail pt has life expectancy less than 6 [address]. [address] [facility] discussed with nursing staff will be d/c to [facility] today from er.
[2017-04-13] MEDS ORDERED: PATIENT'S OWN MEDICATION (NON-FORMULARY) (Albuterol Sulfate [Proair Respiclick] 90 MCG) IH SCH (14:00)
[2017-04-13 18:45] VITALS: BP 122/70; PULSE 91; TEMP 98.4
[2017-04-13] MEDS ORDERED: clonazePAM 0.5 MG TABLET PO SCH (22:00)
[2017-04-13] MEDS ORDERED: LEVETIRACETAM 250 MG, LEVETIRACETAM 500 MG PO SCH (22:00)
[2017-04-13] MEDS ORDERED: ACYCLOVIR 200 MG CAPSULE PO SCH (22:00)
[2017-04-13] MEDS ORDERED: PATIENT'S OWN MEDICATION (NON-FORMULARY) (Levetiracetam [Keppra -] 750 MG) PO SCH (22:00)
[2017-04-13] MEDS ORDERED: PATIENT'S OWN MEDICATION (NON-FORMULARY) (Tizanidine Hcl [Tizanidine Hcl] 4 MG) PO SCH (22:00)
[2017-04-13] MEDS ORDERED: MAGNESIUM OXIDE 400 MG TABLET (FP) PO SCH (22:00)
[2017-04-14] MEDS ORDERED: FUROSEMIDE 40 MG TABLET (FP) PO SCH (10:00)
[2017-04-14] MEDS ORDERED: PANTOPRAZOLE 40 MG TABLET (FP) PO SCH (10:00)
[2017-04-14] MEDS ORDERED: VENLAFAXINE HCL 100 MG TABLET PO SCH (10:00)
[2017-04-14] MEDS ORDERED: MIRTAZAPINE 15 MG TABLET (FP) PO SCH (10:00)
[2017-04-14] MEDS ORDERED: POTASSIUM CHLORIDE TABS 10 MEQ TABLET.ER (FP) PO SCH (10:00)
[2017-04-14] MEDS ORDERED: rOPINIRole HCL 1 MG TABLET (FP) PO SCH (10:00)
[2017-04-14] MEDS ORDERED: ASPIRIN 81 MG CHEWABLE TABLETS PO SCH (10:00)
[2017-04-14] MEDS ORDERED: GABAPENTIN 300 MG CAPSULE (FP) PO SCH (10:00)
== END 2017-04-13 14:10 | disposition hospice, inpatient (51) ==
LOC: JER 21:47 → UNDOADMOB 04-13 06:07 → INTOOBSV 04-13 06:07 → JERBED 04-13 06:07 → UNDOADMIN 04-13 06:18 → JERBED 04-13 09:43
PROVIDERS: ADMIT Internal Medicine; ATTEND Internal Medicine
DX: R41.82 Altered mental status, unspecified (principal); R41.0 Disorientation, unspecified; D49.1 Neoplasm of unspecified behavior of respiratory system; C34.00 Malignant neoplasm of unspecified main bronchus; C15.9 Malignant neoplasm of esophagus, unspecified; G40.909 Epilepsy, unspecified, not intractable, without status epilepticus; J44.9 Chronic obstructive pulmonary disease, unspecified; C34.90 Malignant neoplasm of unspecified part of unspecified bronchus or lung; F17.210 Nicotine dependence, cigarettes, uncomplicated; I25.10 Atherosclerotic heart disease of native coronary artery without angina pectoris; M54.5 Low back pain; G89.29 Other chronic pain; F10.20 Alcohol dependence, uncomplicated; K21.9 Gastro-esophageal reflux disease without esophagitis; Z91.013 Allergy to seafood; Z79.82 Long term (current) use of aspirin; Z95.5 Presence of coronary angioplasty implant and graft; Z92.3 Personal history of irradiation; Z90.2 Acquired absence of lung [part of]
CPT/HCPCS: 36415; 70450-TC; 71010-TC; 80053; 83605; 83735; 83880; 85025; 85610; 93005; 93010; 99283-25; G0378